=== PATIENT | male | born 1960 | race Caucasian/White ===

== ENCOUNTER 2016-05-15 04:04 | Inpatient (IN) | payer BC ==
[~2016-05-15] VITALS: Ht 177.8 cm; Wt 129.3 kg
[~2016-05-15 04:04] MED LIST: AMLO1CAP12 PO; ASPI81TA9 PO; ATOR40TA PO; BYSTOLIC10 MG PO; CELE200C PO; CRESTOR40 MG PO; DEXL60CA PO; MONT10TA6 PO; NAPR500T3 PO; RIVA10TA PO; SERT50TA PO; TEST30SO TD; WARF5TAB7 PO; WARF7.5T6 PO
[2016-05-15] MEDS ORDERED: ASPIRIN 81 MG TAB.CHEW PO ONE (04:30)
[2016-05-15 05:07] LABS: CALCIUM 8.9 mg/dL (8.5-10.1); CREATININE 1.1 mg/dL (0.7-1.3); POTASSIUM 3.7 mmol/L (3.5-5.1)
[2016-05-15 05:13] LABS: ALBUMIN 3.5 g/dL (3.4-5.0); DIRECT BILIRUBIN 0.1 mg/dL (0.0-0.2); TOTAL BILIRUBIN 0.3 mg/dL (0.2-1.0); TOTAL PROTEIN 6.4 g/dL (6.4-8.2)
[2016-05-15 05:27] LABS: BASO # 0.1 x10^3/uL (0.0-0.2); BASO % 1 % (0-3); EOS % 1 % (0-3); HEMATOCRIT 42.6 % (39.0-53.0); HEMOGLOBIN 14.1 g/dL (13.0-17.5); LYMPH # 3.2 x10^3/uL (1.0-4.8); LYMPH % 26 % (24-48); MEAN CORPUSCULAR HEMOGLOBIN 30 pg (25-35); MEAN CORPUSCULAR HGB CONC 33 g/dL (31-37); MEAN CORPUSCULAR VOLUME 91 fL (79-100); MONO % 8 % (0-9); NEUT % 65 % (31-73); PLATELET COUNT 264 x10^3/uL (140-400); RED BLOOD COUNT 4.69 x10^6/uL (4.30-5.70); WHITE BLOOD COUNT 12.6 x10^3/uL (4.0-11.0)
--- NOTE | 2016-05-15 05:43 | PHYS DOC ---
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 He describes chest pain as a tightness that radiates to his neck. It is moderate, intermittent and alleviating factors. He also complains of general abdominal pain in the epigastrium right upper quadrant and right lower quadrant. He has a history of a cholecystectomy in the past. He also has had nausea with a few episodes of vomiting. ROS is negative for fevers chills. Positive for chest pain abdominal pain nausea and vomiting. All other review of systems is negative unless otherwise noted in history of present illness. Review of Systems Review of Systems See above. Current Medications Current Medications Current Medications Medications (Trade) Dose Ordered Sig/Nicolas Start Time Stop Time Status Last Admin Dose Admin Aspirin (Children'S Aspirin) 324 mg 1X ONCE 05/15/16 04:30 05/15/16 04:31 DC 05/15/16 04:24 324 MG Allergies Allergies Allergies Coded Allergies Type Severity Reaction Last Updated Verified No Known Drug Allergies 06/14/13 No Physical Exam Physical Exam Constitutional: Well developed, well nourished, no acute distress, non-toxic appearance. HENT: Normocephalic, atraumatic, bilateral external ears normal, oropharynx moist, no oral exudates, nose normal. [] Eyes: PERRLA, EOMI, conjunctiva normal, no discharge. [] Neck: Normal range of motion, no tenderness, supple, no stridor. Cardiovascular:Heart rate regular rhythm, no murmur [] Lungs & Thorax: Bilateral breath sounds clear to auscultation Abdomen: Soft nontender palpation. No rebound tenderness or guarding present. Skin: Warm, dry, no erythema, no rash. [] Back: No tenderness, no CVA tenderness. [] Extremities: No tenderness, no cyanosis, no clubbing, ROM intact, no edema. Neurologic: Alert and oriented X 3, normal motor function, normal sensory function, no focal deficits noted. Psychologic: Affect normal, judgement normal, mood normal. [] Current Patient Data Vital Signs Vital Signs Date Time Temp Pulse Resp B/P Pulse Ox O2 Delivery O2 Flow Rate FiO2 05/15/16 04:04 98.3 51 22 169/91 97 Room Air 98.3 Lab Values Laboratory Tests Test 05/15/16 04:25 Sodium Level 143mmol/L (136-145) Potassium Level 3.7mmol/L (3.5-5.1) Chloride Level 108mmol/L (98-107) H Carbon Dioxide Level 23mmol/L (21-32) Anion Gap 12 (6-14) Blood Urea Nitrogen 13mg/dL (8-26) Creatinine 1.1mg/dL (0.7-1.3) Estimated GFR (Cockcroft-Gault) 70.0 Glucose Level 105mg/dL (70-99) H Calcium Level 8.9mg/dL (8.5-10.1) Total Bilirubin 0.3mg/dL (0.2-1.0) Direct Bilirubin 0.1mg/dL (0.0-0.2) Aspartate Amino Transferase (AST) 15U/L (15-37) Alanine Aminotransferase (ALT) 30U/L (16-63) Alkaline Phosphatase 80U/L (46-116) Troponin I Quantitative < 0.017ng/mL (0.000-0.055) KY-Gwc-D-Type Natriuretic Peptide 318pg/mL (0-124) H Total Protein 6.4g/dL (6.4-8.2) Albumin 3.5g/dL (3.4-5.0) Lipase 243U/L (73-393) Laboratory Tests 05/15/16 04:25 EKG EKG [] EKG shows sinus rhythm with a regular rate. [place] is leftward. Intervals within normal limits. ST segments congruent. Radiology/Procedures Radiology/Procedures [] Course & Med Decision Making Course & Med Decision Making Pertinent Labs and Imaging studies reviewed. (See chart for details) [] 55-year-old male presenting to the emergency department today with chest pain abdominal pain nausea and vomiting. On evaluation patient was afebrile with mildly bradycardic pulse. Otherwise mildly hypertensive. Physical exam was otherwise unremarkable. EKG unremarkable. Chest x-ray showed no obvious infiltrate or pneumothorax. Blood work obtained aspirin given. Chemistry panel negative troponin and otherwise largely unremarkable. Lipase within normal limits. CT angiography of the chest ordered. The patient was then admitted for further evaluation workup and care including chest pain rule out. Dragon Disclaimer Dragon Disclaimer This electronic medical record was generated, in whole or in part, using a voice recognition dictation system. Departure Departure Impression: Primary Impression: Chest pain Additional Impressions: Abdominal pain Nausea & vomiting Disposition: 01 HOME, SELF-CARE Admitting Physician: Baltazar Chacko Condition: STABLE Referrals: YOHAN KIMBLE MD (PCP) Problem Qualifiers VJ YE MD May 15, 2016 05:43
[2016-05-15] MEDS ORDERED: CONTRAST GIVEN MC PRN ×2 (05:45→12:00)
[2016-05-15] MEDS ORDERED: HYDROMORPHONE 2 MG/ML VIAL. IV PRN (05:45)
[2016-05-15] MEDS ORDERED: IOHEXOL 300 MG/ML 75 ML VIAL IV ONE (05:45)
--- NOTE | 2016-05-15 06:18 | EKG ---
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
--- NOTE | 2016-05-15 06:25 | RAD ---
INDICATION: Chest pain. COMPARISON: May 2013 TECHNIQUE: Axial CT images obtained through the chest. Intravenous contrast was utilized. 3D images processed per protocol. One or more of the following individualized dose reduction techniques were utilized for this examination: 1. Automated exposure control; 2. Adjustment of the mA and/or kV according to patient size; 3. Use of iterative reconstruction technique. FINDINGS: No focal airspace consolidation. No pneumothorax. No pulmonary edema. Thoracic aorta not grossly aneurysmal. There is very little contrast within the thoracic aorta therefore lumen is not well evaluated. Left thyroid nodule No gross osseous destructive lesion. No central pulmonary embolus. Postoperative changes to the stomach. Distention of the distal esophagus versus small hiatal hernia. IMPRESSION: No focal airspace consolidation, pneumothorax or pulmonary edema. No central pulmonary embolus. Limited peripherally secondary to motion which obscures peripheral pulmonary arteries. Within the right mid lung anteriorly there is a possible region of low-attenuation within 1 of the peripheral pulmonary arteries in this patient with a history of embolus within the region. There is a large amount of motion therefore it is possible that this is secondary to motion artifact but a small amount of residual thrombus within the region is possible given this finding. The patient's previously identified more proximal emboli have resolved when compared to prior. Left thyroid nodule. Ultrasound could better evaluate. Electronically signed by: Melo Roper (May 15, 2016 06:24:13)
[2016-05-15] MEDS ORDERED: ONDANSETRON PF 4 MG/2 ML VIAL. IV PRN (06:45)
[2016-05-15] MEDS ORDERED: MORPHINE SULFATE 2 MG/ML DISP.SYRIN. IV PRN ×2 (06:45→10:45)
[2016-05-15 07:00] VITALS: BP 115/71
--- NOTE | 2016-05-15 07:07 | RAD ---
Portable chest, 05/15/2016: History: Chest pain, shortness of breath Comparison is made to a study from 06/07/2013. The heart size and pulmonary vascularity are normal. No pulmonary infiltrate is seen. A small granuloma is present left base. No pleural fluid is evident. IMPRESSION: No acute cardiopulmonary abnormality is detected.
--- NOTE | 2016-05-15 10:08 | PDOC2 ---
CARDIAC CONSULT DATE OF CONSULT Date of Consult DATE: 05/15/16 TIME: 09:57 REASON FOR CONSULT Reason for Consult: Chest pain REFERRING PHYSICIAN Referring Physician: Juan SOURCE Source: Chart review, Patient HISTORY OF PRESENT ILLNESS HISTORY OF PRESENT ILLNESS This is a pleasant 55 yo male admitted for complains of chest pain and abdominal pain. Friday morning he vomited with gastric contents. He then vomited that night as well x2 and again yesterday 3x. He started having dull achy abdominal pain which started in the epigastric region then localized to right side of his abdomen with sometimes shooting pain towards his right groin. Eventually yesterday he started having mid sternal pressure which radiated to his anterior and posterior neck. He has been nauseated and could not keep any food down. Reports no SOA. Denies any BURGOS, utilizing stairs in his home when going to his basement without difficulty. Denies any diarrhea, palpitations. He has hx of PE in 2013 which he is being followed closely by pulmonary as an outpt and currently on xarelto at home. Also reports hx of esophageal ulcers remotely and verified no further ulcers per his EGD last yr prior to his gastric sleeve placement which he has lost 60 pounds already. He has been compliant with his regimen of small meals. He also had LHC 2 yrs ago which showed no CAD. He also has stopped taking NSAIDs 01/2016 prior to his gastric sleeve operation. 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 Smoke: No ALCOHOL: none Drugs: None Lives: with Family CURRENT MEDICATIONS CURRENT MEDICATIONS Current Medications Medications (Trade) Dose Ordered Sig/Nicolas Route PRN Reason Start Time Stop Time Status Last Admin Dose Admin Aspirin (Children'S Aspirin) 324 mg 1X ONCE PO 05/15/16 04:30 05/15/16 04:31 DC 05/15/16 04:24 Iohexol (Omnipaque 300 Mg/ml) 75 ml 1X ONCE IV 05/15/16 05:45 05/15/16 05:46 DC 05/15/16 05:44 Hydromorphone HCl (Dilaudid) 0.5 mg PRN Q1HR PRN IV SEVERE PAIN 05/15/16 05:45 05/15/16 06:00 ALLERGIES ALLERGIES: Coded Allergies: No Known Drug Allergies (Unverified , 06/14/13) ROS Review of System 14 point ROS evaluated with pertinent positives noted per HPI PHYSICAL EXAM General: Alert, Oriented X3, Cooperative, No acute distress HEENT: Atraumatic, Mucous membr. moist/pink Lungs: Clear to auscultation, Normal air movement Heart: Regular rate (no tele, RRR), Normal S1, Normal S2, No murmurs Abdomen: Soft, Other (right side abdominal pain with deep palpation) Extremities: No cyanosis, No edema Skin: No breakdown, No significant lesion Neuro: Normal speech, Sensation intact Psych/Mental Status: Mental status NL, Mood NL MUSCULOSKELETAL: Osteoarthritic changes both hands VITALS VITALS Vital Signs Date Time Temp Pulse Resp B/P Pulse Ox O2 Delivery O2 Flow Rate FiO2 05/15/16 07:00 98.8 48 18 115/71 96 Room Air 98.8 LABS Lab: Laboratory Tests Test 05/15/16 04:25 05/15/16 05:15 Sodium Level 143mmol/L (136-145) Potassium Level 3.7mmol/L (3.5-5.1) Chloride Level 108mmol/L (98-107) Carbon Dioxide Level 23mmol/L (21-32) Anion Gap 12 (6-14) Blood Urea Nitrogen 13mg/dL (8-26) Creatinine 1.1mg/dL (0.7-1.3) Estimated GFR (Cockcroft-Gault) 70.0 Glucose Level 105mg/dL (70-99) Calcium Level 8.9mg/dL (8.5-10.1) Total Bilirubin 0.3mg/dL (0.2-1.0) Direct Bilirubin 0.1mg/dL (0.0-0.2) Aspartate Amino Transf (AST/SGOT) 15U/L (15-37) Alanine Aminotransferase (ALT/SGPT) 30U/L (16-63) Alkaline Phosphatase 80U/L (46-116) Troponin I Quantitative < 0.017ng/mL (0.000-0.055) TS-Uep-A-Type Natriuretic Peptide 318pg/mL (0-124) Total Protein 6.4g/dL (6.4-8.2) Albumin 3.5g/dL (3.4-5.0) Lipase 243U/L (73-393) White Blood Count 12.6x10^3/uL (4.0-11.0) Red Blood Count 4.69x10^6/uL (4.30-5.70) Hemoglobin 14.1g/dL (13.0-17.5) Hematocrit 42.6% (39.0-53.0) Mean Corpuscular Volume 91fL (79-100) Mean Corpuscular Hemoglobin 30pg (25-35) Mean Corpuscular Hemoglobin Concent 33g/dL (31-37) Red Cell Distribution Width 15.0% (11.5-14.5) Platelet Count 264x10^3/uL (140-400) Neutrophils (%) (Auto) 65% (31-73) Lymphocytes (%) (Auto) 26% (24-48) Monocytes (%) (Auto) 8% (0-9) Eosinophils (%) (Auto) 1% (0-3) Basophils (%) (Auto) 1% (0-3) Neutrophils # (Auto) 8.2x10^3uL (1.8-7.7) Lymphocytes # (Auto) 3.2x10^3/uL (1.0-4.8) Monocytes # (Auto) 1.0x10^3/uL (0.0-1.1) Eosinophils # (Auto) 0.1x10^3/uL (0.0-0.7) Basophils # (Auto) 0.1x10^3/uL (0.0-0.2) ECHOCARDIOGRAM ECHOCARDIOGRAM <Conclusion> The left ventricle is normal size. There is mild concentric left ventricular hypertrophy. The left ventricular systolic function is normal.. The Ejection Fraction is 60-65%. The diastolic function is normal. There is no pericardial effusion. There is no mitral stenosis. There is no mitral valve prolapse or regurgitation. There is no aortic stenosis or regurgitation. The right ventricle and the right atrium are mildly enlarged. No tricuspid regurgitation is noted to be able to estimate the right ventricular systolic pressure. There is a mild pulmonic regurgitation. DATE: 08/27/14 1618 HEART CATH HEART CATH Conclusion Normal left main coronary artery. No significant intraluminal coronary artery disease appreciated. Normal left ventricular systolic function with visually estimated ejection fraction of 65%. DATE: 06/08/13 1633 ASSESSMENT/PLAN ASSESSMENT/PLAN 1. Atypical chest pain: initial troponin normal, trending. EKG SB at 50 without acute changes. Doubt ACS. Suspect likely reflux esophagitis from persistent vomiting. CTA noted with possible residual thrombus, will obtain TTE and note right side gradients otherwise no further cardiac workup. 05/2013 [facility] with no CAD. 2. Abdominal pain with recent gastric sleeve placement on 01/2016: No hematemesis. Recommend CT abdomen and pelvis. Defer to PCP 3. Hx of unprovoked bilateral PE: Hypercoagulable study not available but he did tell me that it was normal. Will try to obtain this record. CTA with residual thrombus? Pt verbalized [id number] mg of xarelto daily. Suppose to have outpt follow up with pulmonary 04/[address] Lopez was not available at that time. Pulmonary consult per PCP. 4. Remote hx of esophageal ulcers 5. HTN: on every other day bystolic and will discontinue in relation to bradycardia. Continue with home losartan. 6. HLP: has been off statin since 01/2016 as this was recommended to him. Lost 60 pounds since gastric sleeve. Lipid panel and will restart if levels are not on goal. Problems: NITIN FOSTER APRN May 15, 2016 10:08
[2016-05-15 10:36] VITALS: BP 135/74
[2016-05-15] MEDS ORDERED: MORPHINE SULFATE 4 MG/ML DISP.SYRIN. IV PRN (10:45)
[2016-05-15] MEDS ORDERED: ACETAMINOPHEN 325 MG TABLET. PO PRN (10:45)
[2016-05-15] MEDS ORDERED: hydrALAZINE 20 MG/ML VIAL. IVP PRN (10:45)
[2016-05-15] MEDS: CELECOXIB 200 MG CAPSULE PO SCH (11:00)
[2016-05-15] MEDS: ASPIRIN ENTERIC COATED 81 MG TABLET.DR. PO SCH (11:00)
[2016-05-15] MEDS ORDERED: METOPROLOL TART IMMED RELEASE 50 MG TABLET PO SCH (11:00)
[2016-05-15] MEDS: IV NORMAL SALINE 1000ML BAG 1,000 ML IV SCH (11:03)
[2016-05-15 11:18] LABS: CHOLESTEROL/HDL RATIO 4.5
[2016-05-15] MEDS ORDERED: IOHEXOL 240 MG/ML 50ML VIAL. PO ONE (12:00)
--- NOTE | 2016-05-15 12:00 | PDOC1 ---
History and Physical Date of Admission Date of Admission 05/15/16 Identification/Chief Complaint Chief Complaint N/V , abd pain, chest pain Problems: Source Source: Chart review, Patient History of Present Illness History of Present Illness HPI HPI 55-year-old male presenting to the emergency department today for chest pain. He woke up with chest pain, substernal, pressure, radiating to bl jaws, for 1min , happened 2 times. He also has had N/V and right flank pain for 1 week. no diarrhea, or constipation. no fever, chills. He has a history of a cholecystectomy in the past and gastric sleeve last year for losing weight had PE before , but on xarelto for a long time, sees dr. Lopez. CTA showed possible PE HAD EGD, Colonscopy before, was told had gastric ulcer Past Medical History Cardiovascular: HTN, Hyperlipidemia Pulmonary: Pulmonary embolus CENTRAL NERVOUS SYSTEM: Other (No pertinent history) GI: GERD Heme/Onc: No pertinent hx Hepatobiliary: Cholelithiasis Psych: No pertinent hx Rheumatologic: No pertinent hx Infectious disease: No pertinent hx ENT: No pertinent hx Renal/: No pertinent hx Endocrine: Other (Left thyroid nodule) Dermatology: No pertinent hx Past Surgical History Past Surgical History: Cholecystectomy Family History Family History: Coronary Artery Disease (father) Social History Smoke: No ALCOHOL: none Drugs: None Current Problem List Problem List Problems Medical Problems: (1) Abdominal pain Status: Acute (2) Chest pain Status: Acute (3) Nausea & vomiting Status: Acute Current Medications Current Medications Current Medications Medications (Trade) Dose Ordered Sig/Nicolas Start Time Stop Time Status Last Admin Dose Admin Acetaminophen (Tylenol) 650 mg PRN Q6HRS PRN 05/15/16 10:45 Acetaminophen/ Hydrocodone Bitart (Lortab 5/325) 1 tab PRN Q4HRS PRN 05/15/16 10:45 Aspirin (Children'S Aspirin) 324 mg 1X ONCE 05/15/16 04:30 05/15/16 04:31 DC 05/15/16 04:24 324 MG Aspirin (Ecotrin) 81 mg DAILY08 05/15/16 11:00 Atorvastatin Calcium (Lipitor) 80 mg QHS 05/15/16 21:00 Celecoxib (Celebrex) 200 mg DAILY 05/15/16 11:00 Hydralazine HCl 10 mg 10 mg PRN Q4HRS PRN 05/15/16 10:45 Hydromorphone HCl (Dilaudid) 0.5 mg PRN Q1HR PRN 05/15/16 05:45 05/15/16 06:00 0.5 MG Info (Do NOT chart on this entry -- for MONITORING) 1 each PRN DAILY PRN 05/15/16 05:45 05/17/16 05:44 Iohexol (Omnipaque 240 Mg/ml) 30 ml 1X ONCE 05/15/16 12:00 05/15/16 12:01 UNV Iohexol (Omnipaque 300 Mg/ml) 75 ml 1X ONCE 05/15/16 05:45 05/15/16 05:46 DC 05/15/16 05:44 75 ML Losartan Potassium (Cozaar) 25 mg DAILY 05/15/16 11:30 Metoprolol Tartrate (Lopressor) 50 mg BID 05/15/16 11:00 05/15/16 11:00 DC Montelukast Sodium (Singulair) 10 mg HS 05/15/16 21:00 Morphine Sulfate 4 mg PRN Q2HR PRN 05/15/16 10:45 Non-Formulary Medication 1 each DAILY 05/16/16 09:00 05/16/16 09:00 DC Ondansetron HCl (Zofran) 4 mg PRN Q6HRS PRN 05/15/16 10:45 Pantoprazole Sodium (Protonix) 40 mg DAILYAC 05/15/16 11:30 Rivaroxaban (Xarelto) 20 mg DAILY 05/16/16 09:00 UNV Sertraline HCl (Zoloft) 50 mg DAILY 05/15/16 11:30 Sodium Chloride (Iv Sodium Chloride 0.9% 1000ml Bag) 1,000 ml @ 75 mls/hr [id number] 05/15/16 10:45 05/15/16 11:03 75 MLS/HR Allergies Allergies Allergies Coded Allergies Type Severity Reaction Last Updated Verified No Known Drug Allergies 06/14/13 No ROS Review of System CONSTITUTIONAL: No fever or chills EYES: No recent changes SKIN: No rash or itching CARDIOVASCULAR: No chest pain, syncope, palpitations, or edema RESPIRATORY: No SOB or cough GASTROINTESTINAL: No nausea, vomiting or abdominal pain NEUROLOGICAL: No headaches or weakness ENDOCRINE: No cold or heat intolerance GENITOURINARY: No urgency or frequency of urination MUSCULOSKELETAL: No back pain or joint pain LYMPHATICS: No enlarged lymph nodes PSYCHIATRIC: No anxiety or depression Physical Exam Physical Exam GEN.: No apparent distress. Alert and oriented. HEENT: Head is normocephalic, atraumatic NECK: Supple. LUNGS: Clear to auscultation. HEART: RRR, S1, S2 present. Peripheral pulses intact ABDOMEN: Soft, nontender. Positive bowel sounds. EXTREMITIES: Without any cyanosis. NEUROLOGIC: Normal speech, normal tone PSYCHIATRIC: Normal affect, normal mood. SKIN: No ulcerations Vitals Vitals Vital Signs Date Time Temp Pulse Resp B/P Pulse Ox O2 Delivery O2 Flow Rate FiO2 05/15/16 11:03 20 Room Air 05/15/16 10:36 99.1 49 135/74 97 99.1 Labs Labs Laboratory Tests Test 05/15/16 04:25 05/15/16 05:15 Sodium Level 143mmol/L (136-145) Potassium Level 3.7mmol/L (3.5-5.1) Chloride Level 108mmol/L (98-107) Carbon Dioxide Level 23mmol/L (21-32) Anion Gap 12 (6-14) Blood Urea Nitrogen 13mg/dL (8-26) Creatinine 1.1mg/dL (0.7-1.3) Estimated GFR (Cockcroft-Gault) 70.0 Glucose Level 105mg/dL (70-99) Calcium Level 8.9mg/dL (8.5-10.1) Total Bilirubin 0.3mg/dL (0.2-1.0) Direct Bilirubin 0.1mg/dL (0.0-0.2) Aspartate Amino Transf (AST/SGOT) 15U/L (15-37) Alanine Aminotransferase (ALT/SGPT) 30U/L (16-63) Alkaline Phosphatase 80U/L (46-116) Troponin I Quantitative < 0.017ng/mL (0.000-0.055) PY-Xna-U-Type Natriuretic Peptide 318pg/mL (0-124) Total Protein 6.4g/dL (6.4-8.2) Albumin 3.5g/dL (3.4-5.0) Triglycerides Level 209mg/dL (0-150) Cholesterol Level 234mg/dL (0-200) LDL Cholesterol, Calculated 140mg/dL (0-100) VLDL Cholesterol, Calculated 42mg/dL (0-40) HDL Cholesterol 52mg/dL (40-60) Cholesterol/HDL Ratio 4.5 Lipase 243U/L (73-393) White Blood Count 12.6x10^3/uL (4.0-11.0) Red Blood Count 4.69x10^6/uL (4.30-5.70) Hemoglobin 14.1g/dL (13.0-17.5) Hematocrit 42.6% (39.0-53.0) Mean Corpuscular Volume 91fL (79-100) Mean Corpuscular Hemoglobin 30pg (25-35) Mean Corpuscular Hemoglobin Concent 33g/dL (31-37) Red Cell Distribution Width 15.0% (11.5-14.5) Platelet Count 264x10^3/uL (140-400) Neutrophils (%) (Auto) 65% (31-73) Lymphocytes (%) (Auto) 26% (24-48) Monocytes (%) (Auto) 8% (0-9) Eosinophils (%) (Auto) 1% (0-3) Basophils (%) (Auto) 1% (0-3) Neutrophils # (Auto) 8.2x10^3uL (1.8-7.7) Lymphocytes # (Auto) 3.2x10^3/uL (1.0-4.8) Monocytes # (Auto) 1.0x10^3/uL (0.0-1.1) Eosinophils # (Auto) 0.1x10^3/uL (0.0-0.7) Basophils # (Auto) 0.1x10^3/uL (0.0-0.2) Laboratory Tests Test 05/15/16 04:25 05/15/16 05:15 Sodium Level 143mmol/L (136-145) Potassium Level 3.7mmol/L (3.5-5.1) Chloride Level 108mmol/L (98-107) Carbon Dioxide Level 23mmol/L (21-32) Anion Gap 12 (6-14) Blood Urea Nitrogen 13mg/dL (8-26) Creatinine 1.1mg/dL (0.7-1.3) Estimated GFR (Cockcroft-Gault) 70.0 Glucose Level 105mg/dL (70-99) Calcium Level 8.9mg/dL (8.5-10.1) Total Bilirubin 0.3mg/dL (0.2-1.0) Direct Bilirubin 0.1mg/dL (0.0-0.2) Aspartate Amino Transf (AST/SGOT) 15U/L (15-37) Alanine Aminotransferase (ALT/SGPT) 30U/L (16-63) Alkaline Phosphatase 80U/L (46-116) Troponin I Quantitative < 0.017ng/mL (0.000-0.055) FE-Zpl-A-Type Natriuretic Peptide 318pg/mL (0-124) Total Protein 6.4g/dL (6.4-8.2) Albumin 3.5g/dL (3.4-5.0) Triglycerides Level 209mg/dL (0-150) Cholesterol Level 234mg/dL (0-200) LDL Cholesterol, Calculated 140mg/dL (0-100) VLDL Cholesterol, Calculated 42mg/dL (0-40) HDL Cholesterol 52mg/dL (40-60) Cholesterol/HDL Ratio 4.5 Lipase 243U/L (73-393) White Blood Count 12.6x10^3/uL (4.0-11.0) Red Blood Count 4.69x10^6/uL (4.30-5.70) Hemoglobin 14.1g/dL (13.0-17.5) Hematocrit 42.6% (39.0-53.0) Mean Corpuscular Volume 91fL (79-100) Mean Corpuscular Hemoglobin 30pg (25-35) Mean Corpuscular Hemoglobin Concent 33g/dL (31-37) Red Cell Distribution Width 15.0% (11.5-14.5) Platelet Count 264x10^3/uL (140-400) Neutrophils (%) (Auto) 65% (31-73) Lymphocytes (%) (Auto) 26% (24-48) Monocytes (%) (Auto) 8% (0-9) Eosinophils (%) (Auto) 1% (0-3) Basophils (%) (Auto) 1% (0-3) Neutrophils # (Auto) 8.2x10^3uL (1.8-7.7) Lymphocytes # (Auto) 3.2x10^3/uL (1.0-4.8) Monocytes # (Auto) 1.0x10^3/uL (0.0-1.1) Eosinophils # (Auto) 0.1x10^3/uL (0.0-0.7) Basophils # (Auto) 0.1x10^3/uL (0.0-0.2) VTE Prophylaxis Ordered VTE Prophylaxis Devices: Yes VTE Pharmacological Prophylaxi: No Assessment/Plan Assessment/Plan 1. atypical chest pain, 2/2 anxiety or related to abd pain likely 2. right flank pain with N/V 3. htn 4. hld 5. h/o gastric ulcer, recent post gastric sleeve gastrectomy for weight loss 6. h/o PE, still on xarelto 7. ct found thyroid nodule plan: 1. gi, card consult 2. ct abd/pelvis to rule out kidney stone and gastric leaking 3. cont home meds, only on losartan for htn 4. cont xarelto for now, pulm consult 5. US for thyroid nodule check tsh 6. ivf for now gi ppx JUVENAL SMITH MD May 15, 2016 12:00
--- NOTE | 2016-05-15 12:03 | PDOC2 ---
GI CONSULT Reason For Consult: Abdominal pain HPI: HPI: 55 y/o male admitted through the ER this morning w/ chest pain and abd pain. He reports on 05/12 in the evening, he began having some abdominal pain ( periumbilical/right-sided). Considering his h/o gastric sleeve surgery (in 2015 at [facility] by Dr. Cox), he thought maybe he overate. He has had pain occasionally since surgery, but this pain did not resolve. It is constant and has migrated some to the RUQ down to the RLQ and groin region. On 05/13, he began w/ nausea and vomiting and was unable to keep anything down. He has not had issues w/ n/v since surgery until now. He also had heartburn which improved after vomiting. He has a h/o GERD which has been controlled w/ PPI ( Rx omeprazole taken every morning - he usually doesn't eat breakfast) since surgery. He recalls three previous EGDs; the first (by Dr. Griffin) revealed esophageal ulcers and he was started on Dexilant. Reportedly, a second EGD showed improvement/healing. A third EGD was performed prior to bariatric surgery which was apparently normal. This morning, he awoke w/ central chest pain that radiated to the back of his neck and into his throat which prompted ER evaluation. Labs are fairly unrevealing except for WBC 12.6, BNP 318, and elevated lipid panel. Chest CTA showed possible residual thrombus. Cardiology has seen; echocardiogram is planned. Dr. Craven has ordered CT A/P. He currently is feeling better w/o chest pain or n/v. Right-sided abdominal pain persists but is not too bothersome. He also reports having 2-3 previous colonoscopies which showed polyps, the last of which was a few years ago through [facility]. Since gastric sleeve, his stools have been looser. He has lost about 100 pounds in all, 65 of which has been since surgery. S/p cholecystectomy for gallstones. No NSAID use since gastric sleeve surgery. He is on Xarelto (no ASA) for PE. He denies diarrhea, constipation, hematemesis, hematochezia, and melena. PMH: PMH: PE, HTN, HLD, GERD, arthritis, gout, ROYAL, depression, gastric sleeve, cholecystectomy, vasectomy, ankle surgeries FH: Family History: CAD Social History: Smoke: No ALCOHOL: none Drugs: None ROS: GEN: Denies fevers, chills, sweats HEENT: Denies blurred vision, sore throat CV: +chest pain RESP: Denies shortness of air, cough GI: Per HPI : Denies hematuria, dysuria ENDO: +weight loss NEURO: Denies confusion, dizziness MSK: +neck pain SKIN: Denies jaundice, pruritus VItals: Vitals: Vital Signs Date Time Temp Pulse Resp B/P Pulse Ox O2 Delivery O2 Flow Rate FiO2 05/15/16 11:03 20 Room Air 05/15/16 10:36 99.1 49 135/74 97 99.1 Labs: Labs: Laboratory Tests Test 05/15/16 04:25 05/15/16 05:15 Sodium Level 143mmol/L (136-145) Potassium Level 3.7mmol/L (3.5-5.1) Chloride Level 108mmol/L (98-107) Carbon Dioxide Level 23mmol/L (21-32) Anion Gap 12 (6-14) Blood Urea Nitrogen 13mg/dL (8-26) Creatinine 1.1mg/dL (0.7-1.3) Estimated GFR (Cockcroft-Gault) 70.0 Glucose Level 105mg/dL (70-99) Calcium Level 8.9mg/dL (8.5-10.1) Total Bilirubin 0.3mg/dL (0.2-1.0) Direct Bilirubin 0.1mg/dL (0.0-0.2) Aspartate Amino Transf (AST/SGOT) 15U/L (15-37) Alanine Aminotransferase (ALT/SGPT) 30U/L (16-63) Alkaline Phosphatase 80U/L (46-116) Troponin I Quantitative < 0.017ng/mL (0.000-0.055) QC-Wvy-F-Type Natriuretic Peptide 318pg/mL (0-124) Total Protein 6.4g/dL (6.4-8.2) Albumin 3.5g/dL (3.4-5.0) Triglycerides Level 209mg/dL (0-150) Cholesterol Level 234mg/dL (0-200) LDL Cholesterol, Calculated 140mg/dL (0-100) VLDL Cholesterol, Calculated 42mg/dL (0-40) HDL Cholesterol 52mg/dL (40-60) Cholesterol/HDL Ratio 4.5 Lipase 243U/L (73-393) White Blood Count 12.6x10^3/uL (4.0-11.0) Red Blood Count 4.69x10^6/uL (4.30-5.70) Hemoglobin 14.1g/dL (13.0-17.5) Hematocrit 42.6% (39.0-53.0) Mean Corpuscular Volume 91fL (79-100) Mean Corpuscular Hemoglobin 30pg (25-35) Mean Corpuscular Hemoglobin Concent 33g/dL (31-37) Red Cell Distribution Width 15.0% (11.5-14.5) Platelet Count 264x10^3/uL (140-400) Neutrophils (%) (Auto) 65% (31-73) Lymphocytes (%) (Auto) 26% (24-48) Monocytes (%) (Auto) 8% (0-9) Eosinophils (%) (Auto) 1% (0-3) Basophils (%) (Auto) 1% (0-3) Neutrophils # (Auto) 8.2x10^3uL (1.8-7.7) Lymphocytes # (Auto) 3.2x10^3/uL (1.0-4.8) Monocytes # (Auto) 1.0x10^3/uL (0.0-1.1) Eosinophils # (Auto) 0.1x10^3/uL (0.0-0.7) Basophils # (Auto) 0.1x10^3/uL (0.0-0.2) Allergies: Coded Allergies: No Known Drug Allergies (Unverified , 06/14/13) Medications: Current Medications Medications (Trade) Dose Ordered Sig/Nicolas Route PRN Reason Start Time Stop Time Status Last Admin Dose Admin Aspirin (Children'S Aspirin) 324 mg 1X ONCE PO 05/15/16 04:30 05/15/16 04:31 DC 05/15/16 04:24 Iohexol (Omnipaque 300 Mg/ml) 75 ml 1X ONCE IV 05/15/16 05:45 05/15/16 05:46 DC 05/15/16 05:44 Hydromorphone HCl (Dilaudid) 0.5 mg PRN Q1HR PRN IV SEVERE PAIN 05/15/16 05:45 05/15/16 06:00 Morphine Sulfate 2 mg 2 mg PRN Q2HR PRN IV PAIN 05/15/16 06:45 05/16/16 06:44 05/15/16 11:03 Sodium Chloride (Iv Sodium Chloride 0.9% 1000ml Bag) 1,000 ml @ 75 mls/hr [id number] IV 05/15/16 10:45 05/15/16 11:03 Imaging: Imaging: CXR 05/15/16 IMPRESSION: No acute cardiopulmonary abnormality is detected. CTA Chest 05/15/16 IMPRESSION: No focal airspace consolidation, pneumothorax or pulmonary edema. No central pulmonary embolus. Limited peripherally secondary to motion which obscures peripheral pulmonary arteries. Within the right mid lung anteriorly there is a possible region of low-attenuation within 1 of the peripheral pulmonary arteries in this patient with a history of embolus within the region. There is a large amount of motion therefore it is possible that this is secondary to motion artifact but a small amount of residual thrombus within the region is possible given this finding. The patient's previously identified more proximal emboli have resolved when compared to prior. Left thyroid nodule. Ultrasound could better evaluate. PE: GEN: NAD, cooperative HEENT: Atraumatic, PERRL LUNGS: CTAB anteriorly HEART: RRR ABD: NABS, S/ND, overweight, right lateral tenderness (vague - above hip, not RLQ) EXTREMITY: No edema SKIN: No rashes, no jaundice NEURO/PSYCH: A & O 3 A/P: A/P: Abdominal pain w/ n/v -right-sided (periumbilical to RUQ toward RLQ - mostly laterally) -CT A/P ordered Chest pain - improved -this morning upon waking w/ neck and throat pain -echocardiogram ordered Heartburn -previously controlled w/ omeprazole Q a.m. w/ previous EGDs (one apparently w/ significant reflux) -bothersome since 05/13 w/ n/v, abd pain -no NSAIDs S/p gastric sleeve -at [facility] 01/2016 w/ 65 lb weight loss since S/p cholecystectomy CRC screen, h/o colon polyps -reports last colonoscopy a couple years PE on Xarelto -chest CTA w/ possible residual thrombus -- Will review w/ Dr. Wilson. Await CT A/P, continue PPI. JENNIFER WHITE May 15, 2016 12:03
--- NOTE | 2016-05-15 14:06 | RAD ---
Exam performed: CT abdomen pelvis without contrast. History: Abdominal pain, stone protocol. Date of service: 05/15/16. Comparison: CT abdomen pelvis from 09/15/13. Technique: Contiguous helical acquisitions are obtained through the abdomen and pelvis without IV contrast. Sagittal and coronal reformatted images are obtained and reviewed. Findings: The study was ordered as a stone protocol study, however patient has received IV contrast for a CT angiogram chest earlier this morning with excretion of contrast through bilateral collecting systems. The lung bases are essentially clear. Minimal left basilar atelectasis seen. The heart size is normal. Postoperative changes are seen at the gastroesophageal junction and stomach consistent with the previous gastric sleeve procedure. The liver, spleen and pancreas are normal. Cholecystectomy. Both adrenal glands and bilateral kidneys are normal in size. Bilateral collecting systems appear grossly normal. Visualized opacified portions of both ureters appear normal in caliber. Small and large bowel loops appear nondilated. Visualized portion of the appendix appears normal. No inflammatory changes in the right lower quadrant. The urinary bladder is distended with contrast. There is scattered stool in the rectosigmoid region. No free or focal fluid collections are identified. Interrogation of bone windows demonstrates spondylotic changes. Impression: 1. No acute intra-abdominal or pelvic process detected. PQRS Compliance Statement: One or more of the following individualized dose reduction techniques were utilized for this examination: 1. Automated exposure control 2. Adjustment of the mA and/or kV according to patient size 3. Use of iterative reconstruction technique
--- NOTE | 2016-05-15 14:18 | RAD ---
Exam performed: Thyroid ultrasound. Indication: Follow-up thyroid nodules.. Date of Service: 05/15/16. Comparison: 08/26/14. Technique: Real-time grayscale imaging of the thyroid gland is performed and images are obtained. Findings: The thyroid gland is homogeneous in echotexture. The right lobe measures 3.9 x 1.1 x 1.7 cm whereas the left lobe measures 5.5 x 1.3 x 2.6 cm. The there is a hypoechoic complex solid and cystic nodule measuring 4.1 x 2.7 x 2.3 cm in the the mid to inferior pole of the left lobe. This appears slightly larger than on the previous study. Note is made that this has been previously evaluated by fine-needle aspiration. Impression: 1. Slight interval increase in the size of left thyroid nodule.
--- NOTE | 2016-05-15 15:08 | CARD ---
APPROVED REPORT EXAM: Two-dimensional and M-mode echocardiogram with Doppler and color Doppler. Other Information Quality : GoodHR: 51bpm Rhythm : NSR INDICATION Chest Pain 2D DIMENSIONS RVDd4.0 (2.9-3.5cm)Left Atrium(2D)4.6 (1.6-4.0cm) IVSd1.3 (0.7-1.1cm)Aortic Root(2D)3.4 (2.0-3.7cm) LVDd4.8 (3.9-5.9cm)LVOT Diameter2.8 (1.8-2.4cm) PWd1.2 (0.7-1.1cm)LVDs3.3 (2.5-4.0cm) FS (%) 31.6 %SV65.5 ml LVEF(%)59.5 (>50%) Aortic Valve AoV Peak Luis.153.4cm/sAoV VTI33.5cm AO Peak GR.9.4mmHgLVOT Peak Luis.142.8cm/s LVOT VTI 36.20cmAO Mean GR.5mmHg ANIYA (VMAX)3.88yu3AFW (VTI)2.65cm2 Mitral Valve MV E Uifizwne60.0cm/sMV DECEL [id number] MV A Jlemqpig21.4cm/sMV E Mean Gr.1mmHg MV CVS24caE/A Ratio2.0 MV A Ybajfols78laMWA (PHT)4.87cm2 TDI E/Lateral E'5.7E/Medial E'8.4 Pulmonary Valve PV Peak Dablfyov73.9cm/sPV Peak Grad.3mmHg RVOT VTI15.0cm Tricuspid Valve TR P. Icqqzybe467vn/sRAP [id number] TR Peak Gr.87xlSwRKZC70jqBm Pulmonary Vein S1 Tntygjsr34.9cm/sD2 Srchmdbm08.5cm/s LEFT VENTRICLE The left ventricle is normal size. There is borderline to mild concentric left ventricular hypertroph y. Left ventricle systolic function is normal. The Ejection Fraction is 60-65%. There is normal LV se gmental wall motion. The left ventricular diastolic function and filling is normal for age. RIGHT VENTRICLE The right ventricle is mildly dilated. There is normal right ventricular wall thickness. The right ve ntricular systolic function is normal. ATRIA The left atrium size is normal. The right atrium is mildly dilated. The interatrial septum is intact with no evidence for an atrial septal defect or patent foramen ovale as noted on 2-D or Doppler imagi ng. AORTIC VALVE The aortic valve is normal in structure and function. The aortic valve is trileaflet. Doppler and Col or Flow revealed no significant aortic regurgitation. There is no significant aortic valvular stenosi s. MITRAL VALVE The mitral valve is normal in structure. There is no mitral valve stenosis. Doppler and Color-flow re vealed trace mitral regurgitation. TRICUSPID VALVE The tricuspid valve is normal in structure. Doppler and Color Flow revealed trace tricuspid regurgita tion. There is no tricuspid valve stenosis. PULMONIC VALVE The pulmonary valve is normal in structure. Doppler and Color Flow revealed mild pulmonic valvular re gurgitation. There is no pulmonic valvular stenosis. GREAT VESSELS The aortic root is normal in size. The ascending aorta is normal in size. Normal pulmonary venous soila w (Doppler). The IVC is normal in size and collapses >50% with inspiration. PERICARDIAL EFFUSION There is no evidence of significant pericardial effusion. Critical Notification Critical Value: No <Conclusion> The left ventricle is normal size. Left ventricle systolic function is normal. The Ejection Fraction is 60-65%. There is borderline to mild concentric left ventricular hypertrophy. There is no significant aortic valvular stenosis. Doppler and Color Flow revealed no significant aortic regurgitation. Doppler and Color-flow revealed trace mitral regurgitation. Doppler and Color Flow revealed trace tricuspid regurgitation. There is no evidence of significant pericardial effusion.
[2016-05-15] MEDS: PANTOPRAZOLE 40 MG TABLET. PO SCH (15:58)
[2016-05-15] MEDS: RIVAROXABAN 10 MG TABLET. PO SCH (15:59)
[2016-05-15] MEDS: SERTRALINE 50 MG TABLET. PO SCH (15:59)
[2016-05-15] MEDS: LOSARTAN POTASSIUM 25 MG TABLET. PO SCH (16:12)
[2016-05-15] MEDS ORDERED: ANTI-COAG MONITOR BY PHARMACY. MC PRN (17:15)
[2016-05-15 19:00] VITALS: BP 125/66
[2016-05-15] MEDS: MONTELUKAST SODIUM 10 MG TABLET. PO SCH (20:21)
[2016-05-15] MEDS: ATORVASTATIN CALCIUM 40 MG TABLET. PO SCH (20:21)
[2016-05-15] MEDS: ONDANSETRON PF 4 MG/2 ML VIAL. IV PRN (20:21)
[2016-05-15] MEDS: HYDROCODONE/APAP 5/325MG TABLET. PO PRN (20:23)
[2016-05-15 23:00] VITALS: BP 123/70
[2016-05-16] MEDS: IV NORMAL SALINE 1000ML BAG 1,000 ML IV SCH ×2 (00:16→13:34)
[2016-05-16] MEDS: HYDROCODONE/APAP 5/325MG TABLET. PO PRN ×4 (02:07→20:09)
[2016-05-16 03:00] VITALS: BP 131/80
[2016-05-16 03:54] LABS: BASO # 0.1 x10^3/uL (0.0-0.2); BASO % 1 % (0-3); EOS % 2 % (0-3); HEMOGLOBIN 13.9 g/dL (13.0-17.5); LYMPH # 3.8 x10^3/uL (1.0-4.8); LYMPH % 34 % (24-48); MEAN CORPUSCULAR HEMOGLOBIN 30 pg (25-35); MEAN CORPUSCULAR HGB CONC 33 g/dL (31-37); MEAN CORPUSCULAR VOLUME 92 fL (79-100); MONO % 8 % (0-9); NEUT % 56 % (31-73); PLATELET COUNT 228 x10^3/uL (140-400); RED BLOOD COUNT 4.58 x10^6/uL (4.30-5.70); WHITE BLOOD COUNT 11.1 x10^3/uL (4.0-11.0)
[2016-05-16 04:05] LABS: CALCIUM 8.7 mg/dL (8.5-10.1); GFR 78.2; POTASSIUM 3.7 mmol/L (3.5-5.1)
[2016-05-16 04:20] LABS: FREE T4 0.9 ng/dL (0.76-1.46)
[2016-05-16 07:15] VITALS: BP 139/75
[2016-05-16] MEDS: SERTRALINE 50 MG TABLET. PO SCH (08:07)
[2016-05-16] MEDS: ASPIRIN ENTERIC COATED 81 MG TABLET.DR. PO SCH (08:07)
[2016-05-16] MEDS: RIVAROXABAN 10 MG TABLET. PO SCH (08:07)
[2016-05-16] MEDS: CELECOXIB 200 MG CAPSULE PO SCH (08:07)
[2016-05-16] MEDS: PANTOPRAZOLE 40 MG TABLET. PO SCH (08:07)
[2016-05-16] MEDS: LOSARTAN POTASSIUM 25 MG TABLET. PO SCH (08:09)
[2016-05-16] MEDS: ONDANSETRON PF 4 MG/2 ML VIAL. IV PRN ×2 (08:37→14:44)
[2016-05-16] MEDS ORDERED: [UNRECOGNIZED DRUG - OTHER] PO SCH (09:00)
[2016-05-16] MEDS ORDERED: BENAZEPRIL PO SCH (09:00)
[2016-05-16] MEDS ORDERED: RIVAROXABAN 10 MG TABLET. PO SCH (09:00)
[2016-05-16] MEDS ORDERED: AMLODIPINE BESYLATE PO SCH (09:00)
[2016-05-16 10:17] VITALS: BP 124/81
--- NOTE | 2016-05-16 11:56 | PDOC ---
Subjective: Subjective: On full liquids. Increased nausea and right-sided pain after. Reflux after chicken soup last night. No vomiting. Doesn't want to advance diet. Objective: Vital Signs: Vital Signs Date Time Temp Pulse Resp B/P Pulse Ox O2 Delivery O2 Flow Rate FiO2 05/16/16 10:17 97.7 49 18 124/81 95 Room Air 97.7 Labs: Laboratory Tests Test 05/15/16 12:25 05/15/16 18:20 05/16/16 03:28 Troponin I Quantitative < 0.017ng/mL < 0.017ng/mL White Blood Count 11.1x10^3/uL Red Blood Count 4.58x10^6/uL Hemoglobin 13.9g/dL Hematocrit 42.0% Mean Corpuscular Volume 92fL Mean Corpuscular Hemoglobin 30pg Mean Corpuscular Hemoglobin Concent 33g/dL Red Cell Distribution Width 15.0% Platelet Count 228x10^3/uL Neutrophils (%) (Auto) 56% Lymphocytes (%) (Auto) 34% Monocytes (%) (Auto) 8% Eosinophils (%) (Auto) 2% Basophils (%) (Auto) 1% Neutrophils # (Auto) 6.2x10^3uL Lymphocytes # (Auto) 3.8x10^3/uL Monocytes # (Auto) 0.9x10^3/uL Eosinophils # (Auto) 0.2x10^3/uL Basophils # (Auto) 0.1x10^3/uL Sodium Level 140mmol/L Potassium Level 3.7mmol/L Chloride Level 107mmol/L Carbon Dioxide Level 24mmol/L Anion Gap 9 Blood Urea Nitrogen 13mg/dL Creatinine 1.0mg/dL Estimated GFR (Cockcroft-Gault) 78.2 Glucose Level 96mg/dL Calcium Level 8.7mg/dL Thyroid Stimulating Hormone (TSH) 2.143uIU/mL Free Thyroxine 0.90ng/dL Imaging: CT A/P w/o contrast 05/15/16 Impression: 1. No acute intra-abdominal or pelvic process detected. Thyroid US 05/15/16 Impression: 1. Slight interval increase in the size of left thyroid nodule. Echocardiogram 05/15/16 <Conclusion> The left ventricle is normal size. Left ventricle systolic function is normal. The Ejection Fraction is 60-65%. There is borderline to mild concentric left ventricular hypertrophy. There is no significant aortic valvular stenosis. Doppler and Color Flow revealed no significant aortic regurgitation. Doppler and Color-flow revealed trace mitral regurgitation. Doppler and Color Flow revealed trace tricuspid regurgitation. There is no evidence of significant pericardial effusion. PE: GEN: NAD LUNGS: CTAB anteriorly HEART: RRR ABD: BS+, vague right periumbilical tenderness today toward iliac NEURO/PSYCH: A & O 3 A/P: Abdominal pain w/ n/v -right-sided, ongoing nausea - both worse after eating -h/o gastric sleeve, cholecystectomy Reflux -previously controlled w/ omeprazole Q a.m. w/ previous EGDs, worse lately -on pantoprazole here Chest pain - resolved -cardio has seen, echo as above Thyroid nodule -per primary -- Will review w/ Dr. Wilson. Continue PPI. JENNIFER WHITE May 16, 2016 11:56
--- NOTE | 2016-05-16 12:08 | PDOC ---
PROGRESS NOTES Chief Complaint Chief Complaint RIGHT FLANK pain 1. atypical chest pain, 2/2 anxiety or related to abd pain likely 2. right flank pain with N/V 3. htn 4. hld 5. h/o gastric ulcer, recent post gastric sleeve gastrectomy for weight loss 6. h/o PE, still on xarelto 7. ct found thyroid nodule plan: 1. gi, card consulted , echo ok 2. ct abd/pelvis has ruled out kidney stone and gastric leaking 3. cont home meds, only on losartan for htn 4. cont xarelto for now, pulm consult 5. US for thyroid nodule, slightly larger than before check tsh, t4 normal 6. ivf for now gi ppx suppotive care, hope can tolerate diet better and dc soon History of Present Illness History of Present Illness no chest pain, still has nausea, no vomiting on Full liquid diet right flank pain better with pain meds Vitals Vitals Vital Signs Date Time Temp Pulse Resp B/P Pulse Ox O2 Delivery O2 Flow Rate FiO2 05/16/16 10:17 97.7 49 18 124/81 95 Room Air 97.7 Physical Exam General: Alert, Oriented X3, Cooperative, No acute distress Heart: Regular rate (no tele, RRR), Normal S1, Normal S2, No murmurs Lungs: Clear Abdomen: Soft, Other (right side abdominal mild tednerness with deep palpation) Extremities: No cyanosis, No edema Skin: No breakdown, No significant lesion Labs LABS Laboratory Tests Test 05/15/16 12:25 05/15/16 18:20 05/16/16 03:28 Troponin I Quantitative < 0.017ng/mL (0.000-0.055) < 0.017ng/mL (0.000-0.055) White Blood Count 11.1x10^3/uL (4.0-11.0) Red Blood Count 4.58x10^6/uL (4.30-5.70) Hemoglobin 13.9g/dL (13.0-17.5) Hematocrit 42.0% (39.0-53.0) Mean Corpuscular Volume 92fL (79-100) Mean Corpuscular Hemoglobin 30pg (25-35) Mean Corpuscular Hemoglobin Concent 33g/dL (31-37) Red Cell Distribution Width 15.0% (11.5-14.5) Platelet Count 228x10^3/uL (140-400) Neutrophils (%) (Auto) 56% (31-73) Lymphocytes (%) (Auto) 34% (24-48) Monocytes (%) (Auto) 8% (0-9) Eosinophils (%) (Auto) 2% (0-3) Basophils (%) (Auto) 1% (0-3) Neutrophils # (Auto) 6.2x10^3uL (1.8-7.7) Lymphocytes # (Auto) 3.8x10^3/uL (1.0-4.8) Monocytes # (Auto) 0.9x10^3/uL (0.0-1.1) Eosinophils # (Auto) 0.2x10^3/uL (0.0-0.7) Basophils # (Auto) 0.1x10^3/uL (0.0-0.2) Sodium Level 140mmol/L (136-145) Potassium Level 3.7mmol/L (3.5-5.1) Chloride Level 107mmol/L (98-107) Carbon Dioxide Level 24mmol/L (21-32) Anion Gap 9 (6-14) Blood Urea Nitrogen 13mg/dL (8-26) Creatinine 1.0mg/dL (0.7-1.3) Estimated GFR (Cockcroft-Gault) 78.2 Glucose Level 96mg/dL (70-99) Calcium Level 8.7mg/dL (8.5-10.1) Thyroid Stimulating Hormone (TSH) 2.143uIU/mL (0.358-3.74) Free Thyroxine 0.90ng/dL (0.76-1.46) Review of Systems Review of Systems no fever, chills, sob or chest pain Assessment and Plan Assessmemt and Plan Problems Medical Problems: (1) Abdominal pain Status: Acute (2) Chest pain Status: Acute (3) Nausea & vomiting Status: Acute Problems: Comment Review of Relevant I have reviewed the following items robin (where applicable) has been applied. Labs Laboratory Tests Test 05/15/16 04:25 05/15/16 05:15 05/15/16 12:25 05/15/16 18:20 Sodium Level 143mmol/L (136-145) Potassium Level 3.7mmol/L (3.5-5.1) Chloride Level 108mmol/L (98-107) Carbon Dioxide Level 23mmol/L (21-32) Anion Gap 12 (6-14) Blood Urea Nitrogen 13mg/dL (8-26) Creatinine 1.1mg/dL (0.7-1.3) Estimated GFR (Cockcroft-Gault) 70.0 Glucose Level 105mg/dL (70-99) Calcium Level 8.9mg/dL (8.5-10.1) Total Bilirubin 0.3mg/dL (0.2-1.0) Direct Bilirubin 0.1mg/dL (0.0-0.2) Aspartate Amino Transf (AST/SGOT) 15U/L (15-37) Alanine Aminotransferase (ALT/SGPT) 30U/L (16-63) Alkaline Phosphatase 80U/L (46-116) Troponin I Quantitative < 0.017ng/mL (0.000-0.055) < 0.017ng/mL (0.000-0.055) < 0.017ng/mL (0.000-0.055) OF-Smp-Y-Type Natriuretic Peptide 318pg/mL (0-124) Total Protein 6.4g/dL (6.4-8.2) Albumin 3.5g/dL (3.4-5.0) Triglycerides Level 209mg/dL (0-150) Cholesterol Level 234mg/dL (0-200) LDL Cholesterol, Calculated 140mg/dL (0-100) VLDL Cholesterol, Calculated 42mg/dL (0-40) HDL Cholesterol 52mg/dL (40-60) Cholesterol/HDL Ratio 4.5 Lipase 243U/L (73-393) White Blood Count 12.6x10^3/uL (4.0-11.0) Red Blood Count 4.69x10^6/uL (4.30-5.70) Hemoglobin 14.1g/dL (13.0-17.5) Hematocrit 42.6% (39.0-53.0) Mean Corpuscular Volume 91fL (79-100) Mean Corpuscular Hemoglobin 30pg (25-35) Mean Corpuscular Hemoglobin Concent 33g/dL (31-37) Red Cell Distribution Width 15.0% (11.5-14.5) Platelet Count 264x10^3/uL (140-400) Neutrophils (%) (Auto) 65% (31-73) Lymphocytes (%) (Auto) 26% (24-48) Monocytes (%) (Auto) 8% (0-9) Eosinophils (%) (Auto) 1% (0-3) Basophils (%) (Auto) 1% (0-3) Neutrophils # (Auto) 8.2x10^3uL (1.8-7.7) Lymphocytes # (Auto) 3.2x10^3/uL (1.0-4.8) Monocytes # (Auto) 1.0x10^3/uL (0.0-1.1) Eosinophils # (Auto) 0.1x10^3/uL (0.0-0.7) Basophils # (Auto) 0.1x10^3/uL (0.0-0.2) Test 05/16/16 03:28 White Blood Count 11.1x10^3/uL (4.0-11.0) Red Blood Count 4.58x10^6/uL (4.30-5.70) Hemoglobin 13.9g/dL (13.0-17.5) Hematocrit 42.0% (39.0-53.0) Mean Corpuscular Volume 92fL (79-100) Mean Corpuscular Hemoglobin 30pg (25-35) Mean Corpuscular Hemoglobin Concent 33g/dL (31-37) Red Cell Distribution Width 15.0% (11.5-14.5) Platelet Count 228x10^3/uL (140-400) Neutrophils (%) (Auto) 56% (31-73) Lymphocytes (%) (Auto) 34% (24-48) Monocytes (%) (Auto) 8% (0-9) Eosinophils (%) (Auto) 2% (0-3) Basophils (%) (Auto) 1% (0-3) Neutrophils # (Auto) 6.2x10^3uL (1.8-7.7) Lymphocytes # (Auto) 3.8x10^3/uL (1.0-4.8) Monocytes # (Auto) 0.9x10^3/uL (0.0-1.1) Eosinophils # (Auto) 0.2x10^3/uL (0.0-0.7) Basophils # (Auto) 0.1x10^3/uL (0.0-0.2) Sodium Level 140mmol/L (136-145) Potassium Level 3.7mmol/L (3.5-5.1) Chloride Level 107mmol/L (98-107) Carbon Dioxide Level 24mmol/L (21-32) Anion Gap 9 (6-14) Blood Urea Nitrogen 13mg/dL (8-26) Creatinine 1.0mg/dL (0.7-1.3) Estimated GFR (Cockcroft-Gault) 78.2 Glucose Level 96mg/dL (70-99) Calcium Level 8.7mg/dL (8.5-10.1) Thyroid Stimulating Hormone (TSH) 2.143uIU/mL (0.358-3.74) Free Thyroxine 0.90ng/dL (0.76-1.46) Laboratory Tests Test 05/15/16 12:25 05/15/16 18:20 05/16/16 03:28 Troponin I Quantitative < 0.017ng/mL (0.000-0.055) < 0.017ng/mL (0.000-0.055) White Blood Count 11.1x10^3/uL (4.0-11.0) Red Blood Count 4.58x10^6/uL (4.30-5.70) Hemoglobin 13.9g/dL (13.0-17.5) Hematocrit 42.0% (39.0-53.0) Mean Corpuscular Volume 92fL (79-100) Mean Corpuscular Hemoglobin 30pg (25-35) Mean Corpuscular Hemoglobin Concent 33g/dL (31-37) Red Cell Distribution Width 15.0% (11.5-14.5) Platelet Count 228x10^3/uL (140-400) Neutrophils (%) (Auto) 56% (31-73) Lymphocytes (%) (Auto) 34% (24-48) Monocytes (%) (Auto) 8% (0-9) Eosinophils (%) (Auto) 2% (0-3) Basophils (%) (Auto) 1% (0-3) Neutrophils # (Auto) 6.2x10^3uL (1.8-7.7) Lymphocytes # (Auto) 3.8x10^3/uL (1.0-4.8) Monocytes # (Auto) 0.9x10^3/uL (0.0-1.1) Eosinophils # (Auto) 0.2x10^3/uL (0.0-0.7) Basophils # (Auto) 0.1x10^3/uL (0.0-0.2) Sodium Level 140mmol/L (136-145) Potassium Level 3.7mmol/L (3.5-5.1) Chloride Level 107mmol/L (98-107) Carbon Dioxide Level 24mmol/L (21-32) Anion Gap 9 (6-14) Blood Urea Nitrogen 13mg/dL (8-26) Creatinine 1.0mg/dL (0.7-1.3) Estimated GFR (Cockcroft-Gault) 78.2 Glucose Level 96mg/dL (70-99) Calcium Level 8.7mg/dL (8.5-10.1) Thyroid Stimulating Hormone (TSH) 2.143uIU/mL (0.358-3.74) Free Thyroxine 0.90ng/dL (0.76-1.46) Medications Current Medications Aspirin (Children'S Aspirin) 324 mg 1X ONCE PO Last administered on 05/15/16 04:24; Start 05/15/16 at 04:30; Stop 05/15/16 at 04:31; Status DC Iohexol (Omnipaque 300 Mg/ml) 75 ml 1X ONCE IV Last administered on 05/15/16 05:44; Start 05/15/16 at 05:45; Stop 05/15/16 at 05:46; Status DC Hydromorphone HCl (Dilaudid) 0.5 mg PRN Q1HR PRN IV SEVERE PAIN Last administered on 05/15/16 06:00; Start 05/15/16 at 05:45 Info (Do NOT chart on this entry -- for MONITORING) 1 each PRN DAILY PRN MC SEE COMMENTS; Start 05/15/16 at 05:45; Stop 05/15/16 at 11:52; Status DC Ondansetron HCl (Zofran) 4 mg PRN Q8HRS PRN IV NAUSEA/VOMITING; Start 05/15/16 at 06:45; Stop 05/15/16 at 17:06; Status DC Morphine Sulfate 2 mg PRN Q2HR PRN IV PAIN Last administered on 05/15/16 11:03 ; Start 05/15/16 at 06:45; Stop 05/15/16 at 17:05; Status DC Aspirin (Ecotrin) 81 mg DAILY08 PO Last administered on 05/16/16 08:07; Start 05/15/16 at 11:00 Celecoxib (Celebrex) 200 mg DAILY PO ; Start 05/15/16 at 11:00 Montelukast Sodium (Singulair) 10 mg HS PO Last administered on 05/15/16 20:21 ; Start 05/15/16 at 21:00 Metoprolol Tartrate (Lopressor) 50 mg BID PO ; Start 05/15/16 at 11:00; Stop 05/15 at 11:00; Status DC Rivaroxaban (Xarelto) 20 mg DAILY PO Last administered on 05/16/16 08:07; Start 05/15/16 at 11:00 Rivaroxaban (Xarelto) 20 mg DAILY PO ; Start 05/16/16 at 09:00; Status UNV Sertraline HCl (Zoloft) 50 mg DAILY PO Last administered on 05/16/16 08:07; Start 05/15/16 at 11:30 Non-Formulary Medication 1 each DAILY PO ; Start 05/16/16 at 09:00; Stop 05/16/16 at 09:00; Status DC Pantoprazole Sodium (Protonix) 40 mg DAILYAC PO Last administered on 05/16/16 08:07; Start 05/15/16 at 11:30 Atorvastatin Calcium (Lipitor) 80 mg QHS PO Last administered on 05/15/16 20:21 ; Start 05/15/16 at 21:00 Hydralazine HCl 10 mg 10 mg PRN Q4HRS PRN IVP ELEVATED BP, SEE COMMENTS; Start 05/15/16 at 10:45 Sodium Chloride (Iv Sodium Chloride 0.9% 1000ml Bag) 1,000 ml @ 75 mls/hr [id number] IV Last administered on 05/16/16 00:16; Start 05/15/16 at 10:45 Acetaminophen (Tylenol) 650 mg PRN Q6HRS PRN PO MILD PAIN / TEMP; Start at 10:45 Ondansetron HCl (Zofran) 4 mg PRN Q6HRS PRN IV NAUSEA/VOMITING Last administered on 05/16/16 08:37; Start 05/15/16 at 10:45 Morphine Sulfate 2 mg PRN Q2HR PRN IV PAIN SEVERE Last administered on 16:00; Start 05/15/16 at 10:45 Morphine Sulfate 4 mg PRN Q2HR PRN IV PAIN SEVERE; Start 05/15/16 at 10:45 Acetaminophen/ Hydrocodone Bitart (Lortab 5/325) 1 tab PRN Q4HRS PRN PO MODERATE - SEVERE PAIN Last administered on 05/16/16 08:19; Start 05/15/16 at 10: 45 Losartan Potassium (Cozaar) 25 mg DAILY PO Last administered on 05/16/16 08:09 ; Start 05/15/16 at 11:30 Iohexol (Omnipaque 240 Mg/ml) 30 ml 1X ONCE PO ; Start 05/15/16 at 12:00; Stop 05/15/16 at 12:01; Status DC Info (Do NOT chart on this entry -- for MONITORING) 1 each PRN DAILY PRN MC SEE COMMENTS; Start 05/15/16 at 12:00; Stop 05/17/16 at 11:59 Info (Anti-Coagulation Monitoring By Pharmacy) 1 each PRN DAILY PRN MC SEE COMMENTS; Start 05/15/16 at 17:15 Active Scripts Active Reported Xarelto (Rivaroxaban) 10 Mg Tablet 20 Mg PO DAILY Singulair Tablet (Montelukast Sodium) 10 Mg Tablet 10 Mg PO HS Xarelto (Rivaroxaban) 10 Mg Tablet 20 Mg PO DAILY Zoloft (Sertraline Hcl) 50 Mg Tablet 50 Mg PO DAILY Bystolic (Nebivolol) 10 Mg Tablet 10 Mg PO DAILY Vitals/I & O Vital Sign - Last 24 Hours 05/15/16 05/15/16 05/15/16 05/15/16 16:00 16:12 16:30 19:00 Temp 96.9 96.9 Pulse 56 52 Resp 20 20 18 B/P 143/80 125/66 Pulse Ox 97 97 95 O2 Delivery Room Air Room Air Room Air 05/15/16 05/15/16 05/15/16 2/1/17 20:00 20:23 21:23 23:00 Temp 98.6 98.6 Pulse 53 Resp 18 18 B/P 123/70 Pulse Ox 97 97 95 O2 Delivery Room Air Room Air Room Air 05/16/16 05/16/16 05/16/16 05/16/16 02:07 03:00 07:15 08:00 Temp 96.8 96.6 96.8 96.6 Pulse 49 48 Resp 18 18 B/P 131/80 139/75 Pulse Ox 95 95 96 O2 Delivery Room Air Room Air Room Air Room Air 05/16/16 05/16/16 05/16/16 08:09 08:19 10:17 Temp 97.7 97.7 Pulse 56 49 Resp 18 18 B/P 139/75 124/81 Pulse Ox 95 O2 Delivery Room Air Room Air Intake and Output 05/15/16 05/15/16 05/16/16 15:00 23:00 07:00 Intake Total 250 ml 1000 ml 360 ml Balance 250 ml 1000 ml 360 ml JUVENAL SMITH MD May 16, 2016 12:08
--- NOTE | 2016-05-16 14:16 | PDOC ---
PULMONARY PROGRESS NOTES Vitals Vital Signs Date Time Temp Pulse Resp B/P Pulse Ox O2 Delivery O2 Flow Rate FiO2 05/16/16 13:34 20 95 Room Air 05/16/16 10:17 97.7 49 124/81 97.7 General: Alert, Oriented X4 Lungs: Clear Cardiovascular: S1, S2 Abdomen: Soft, Non-tender Extremities: No Edema Labs Laboratory Tests Test 05/15/16 04:25 05/15/16 05:15 05/15/16 12:25 05/15/16 18:20 Sodium Level 143mmol/L (136-145) Potassium Level 3.7mmol/L (3.5-5.1) Chloride Level 108mmol/L (98-107) Carbon Dioxide Level 23mmol/L (21-32) Anion Gap 12 (6-14) Blood Urea Nitrogen 13mg/dL (8-26) Creatinine 1.1mg/dL (0.7-1.3) Estimated GFR (Cockcroft-Gault) 70.0 Glucose Level 105mg/dL (70-99) Calcium Level 8.9mg/dL (8.5-10.1) Total Bilirubin 0.3mg/dL (0.2-1.0) Direct Bilirubin 0.1mg/dL (0.0-0.2) Aspartate Amino Transf (AST/SGOT) 15U/L (15-37) Alanine Aminotransferase (ALT/SGPT) 30U/L (16-63) Alkaline Phosphatase 80U/L (46-116) Troponin I Quantitative < 0.017ng/mL (0.000-0.055) < 0.017ng/mL (0.000-0.055) < 0.017ng/mL (0.000-0.055) NW-Czg-P-Type Natriuretic Peptide 318pg/mL (0-124) Total Protein 6.4g/dL (6.4-8.2) Albumin 3.5g/dL (3.4-5.0) Triglycerides Level 209mg/dL (0-150) Cholesterol Level 234mg/dL (0-200) LDL Cholesterol, Calculated 140mg/dL (0-100) VLDL Cholesterol, Calculated 42mg/dL (0-40) HDL Cholesterol 52mg/dL (40-60) Cholesterol/HDL Ratio 4.5 Lipase 243U/L (73-393) White Blood Count 12.6x10^3/uL (4.0-11.0) Red Blood Count 4.69x10^6/uL (4.30-5.70) Hemoglobin 14.1g/dL (13.0-17.5) Hematocrit 42.6% (39.0-53.0) Mean Corpuscular Volume 91fL (79-100) Mean Corpuscular Hemoglobin 30pg (25-35) Mean Corpuscular Hemoglobin Concent 33g/dL (31-37) Red Cell Distribution Width 15.0% (11.5-14.5) Platelet Count 264x10^3/uL (140-400) Neutrophils (%) (Auto) 65% (31-73) Lymphocytes (%) (Auto) 26% (24-48) Monocytes (%) (Auto) 8% (0-9) Eosinophils (%) (Auto) 1% (0-3) Basophils (%) (Auto) 1% (0-3) Neutrophils # (Auto) 8.2x10^3uL (1.8-7.7) Lymphocytes # (Auto) 3.2x10^3/uL (1.0-4.8) Monocytes # (Auto) 1.0x10^3/uL (0.0-1.1) Eosinophils # (Auto) 0.1x10^3/uL (0.0-0.7) Basophils # (Auto) 0.1x10^3/uL (0.0-0.2) Test 05/16/16 03:28 White Blood Count 11.1x10^3/uL (4.0-11.0) Red Blood Count 4.58x10^6/uL (4.30-5.70) Hemoglobin 13.9g/dL (13.0-17.5) Hematocrit 42.0% (39.0-53.0) Mean Corpuscular Volume 92fL (79-100) Mean Corpuscular Hemoglobin 30pg (25-35) Mean Corpuscular Hemoglobin Concent 33g/dL (31-37) Red Cell Distribution Width 15.0% (11.5-14.5) Platelet Count 228x10^3/uL (140-400) Neutrophils (%) (Auto) 56% (31-73) Lymphocytes (%) (Auto) 34% (24-48) Monocytes (%) (Auto) 8% (0-9) Eosinophils (%) (Auto) 2% (0-3) Basophils (%) (Auto) 1% (0-3) Neutrophils # (Auto) 6.2x10^3uL (1.8-7.7) Lymphocytes # (Auto) 3.8x10^3/uL (1.0-4.8) Monocytes # (Auto) 0.9x10^3/uL (0.0-1.1) Eosinophils # (Auto) 0.2x10^3/uL (0.0-0.7) Basophils # (Auto) 0.1x10^3/uL (0.0-0.2) Sodium Level 140mmol/L (136-145) Potassium Level 3.7mmol/L (3.5-5.1) Chloride Level 107mmol/L (98-107) Carbon Dioxide Level 24mmol/L (21-32) Anion Gap 9 (6-14) Blood Urea Nitrogen 13mg/dL (8-26) Creatinine 1.0mg/dL (0.7-1.3) Estimated GFR (Cockcroft-Gault) 78.2 Glucose Level 96mg/dL (70-99) Calcium Level 8.7mg/dL (8.5-10.1) Thyroid Stimulating Hormone (TSH) 2.143uIU/mL (0.358-3.74) Free Thyroxine 0.90ng/dL (0.76-1.46) Laboratory Tests Test 05/15/16 18:20 05/16/16 03:28 Troponin I Quantitative < 0.017ng/mL (0.000-0.055) White Blood Count 11.1x10^3/uL (4.0-11.0) Red Blood Count 4.58x10^6/uL (4.30-5.70) Hemoglobin 13.9g/dL (13.0-17.5) Hematocrit 42.0% (39.0-53.0) Mean Corpuscular Volume 92fL (79-100) Mean Corpuscular Hemoglobin 30pg (25-35) Mean Corpuscular Hemoglobin Concent 33g/dL (31-37) Red Cell Distribution Width 15.0% (11.5-14.5) Platelet Count 228x10^3/uL (140-400) Neutrophils (%) (Auto) 56% (31-73) Lymphocytes (%) (Auto) 34% (24-48) Monocytes (%) (Auto) 8% (0-9) Eosinophils (%) (Auto) 2% (0-3) Basophils (%) (Auto) 1% (0-3) Neutrophils # (Auto) 6.2x10^3uL (1.8-7.7) Lymphocytes # (Auto) 3.8x10^3/uL (1.0-4.8) Monocytes # (Auto) 0.9x10^3/uL (0.0-1.1) Eosinophils # (Auto) 0.2x10^3/uL (0.0-0.7) Basophils # (Auto) 0.1x10^3/uL (0.0-0.2) Sodium Level 140mmol/L (136-145) Potassium Level 3.7mmol/L (3.5-5.1) Chloride Level 107mmol/L (98-107) Carbon Dioxide Level 24mmol/L (21-32) Anion Gap 9 (6-14) Blood Urea Nitrogen 13mg/dL (8-26) Creatinine 1.0mg/dL (0.7-1.3) Estimated GFR (Cockcroft-Gault) 78.2 Glucose Level 96mg/dL (70-99) Calcium Level 8.7mg/dL (8.5-10.1) Thyroid Stimulating Hormone (TSH) 2.143uIU/mL (0.358-3.74) Free Thyroxine 0.90ng/dL (0.76-1.46) Medications Active Scripts Medications Dose Route/Sig Days Date Category Xarelto (Rivaroxaban) 10 Mg Tablet 20 Mg PO DAILY 10/22/14 Reported Singulair Tablet (Montelukast Sodium) 10 Mg Tablet 10 Mg PO HS 02/11/14 Reported Xarelto (Rivaroxaban) 10 Mg Tablet 20 Mg PO DAILY 02/11/14 Reported Zoloft (Sertraline Hcl) 50 Mg Tablet 50 Mg PO DAILY 06/08/13 Reported Bystolic (Nebivolol) 10 Mg Tablet 10 Mg PO DAILY 06/08/13 Reported Impression . FULL CONSULT DICTATED AGREE WITH CURRENT RX NO FURTHER WORK UP FROM PULMONARY D/C OK FROM MY STANDPOINT CONTINUE LIFETIME ANTICOAGULATION FOLLOW UP WITH DR BOYKIN INSTRUCTED ARMANI TRACEY MD May 16, 2016 14:16
[2016-05-16 14:30] VITALS: BP 133/79
[2016-05-16 19:00] VITALS: BP 119/80
[2016-05-16] MEDS: ATORVASTATIN CALCIUM 40 MG TABLET. PO SCH (20:09)
[2016-05-16] MEDS: MONTELUKAST SODIUM 10 MG TABLET. PO SCH (20:09)
[2016-05-16 22:59] VITALS: BP 122/86
[2016-05-17] MEDS: IV NORMAL SALINE 1000ML BAG 1,000 ML IV SCH (02:20)
[2016-05-17] MEDS: HYDROCODONE/APAP 5/325MG TABLET. PO PRN ×2 (02:24→08:22)
--- NOTE | 2016-05-17 03:59 | CONS ---
DATE OF CONSULTATION: 05/16/2016 ATTENDING PHYSICIAN: Dr. Craven REASON FOR CONSULTATION: The patient is seen in Pulmonary consultation at the request of Dr. Craven for chest pain and history of PE. HISTORY OF PRESENT ILLNESS: The patient is a 55-year-old that was having flu-like symptoms for the last couple of days, initially started with GI disturbance, then started to experience some abdominal discomfort. He also has some chest pain. He has a history of pulmonary embolism and I was asked to see him in consultation. The patient does not think that this is related to his PE. He was ____ severely short of breath. He denies productive cough. PAST MEDICAL HISTORY: 1. Extensive pulmonary embolism, initially in 05/2013, on lifetime anticoagulation. 2. Obstructive sleep apnea. 3. Hypertension. 4. Hyperlipidemia. 5. Cholelithiasis. PAST SURGICAL HISTORY: Status post cholecystectomy. FAMILY HISTORY: Coronary artery disease. 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 Denies any alcohol or tobacco. ALLERGIES: No known drug allergies. CURRENT MEDICATIONS: List was reviewed. PHYSICAL EXAMINATION: GENERAL: The patient was in no respiratory distress, requiring no oxygen supplementation. VITAL SIGNS: Stable. O2 saturation was greater than 92%. HEENT: Eyes, the sclerae were nonicteric. NECK: Jugular venous distention was not elevated. No lymphadenopathy. CHEST: Full expansion. LUNGS: Adequate airway flow, no wheezes. CARDIOVASCULAR: Regular rate and rhythm with S1, S2, no S3. ABDOMEN: Soft, nontender, nondistended. EXTREMITIES: No clubbing, cyanosis or edema. NEUROLOGIC: The patient was awake, alert, following commands. A detailed neuro exam was not performed. LABORATORY DATA: Reviewed. White count was slightly elevated. Electrolytes were noted. BUN and creatinine were noted. Chest x-ray was reviewed. No acute cardiopulmonary process. CT angiogram was performed. There were no central pulmonary emboli. IMPRESSION: 1. History of pulmonary embolism, the patient on lifetime anticoagulation, clinical presentation not compatible with recurrent PE. CT angiogram was of poor quality for peripheral evaluation. There is no evidence of central pulmonary emboli. 2. Obstructive sleep apnea. The patient will continue home BiPAP. 3. Morbid obesity. 4. Suspect viral syndrome. PLAN: At this point, I recommend no additional workup. Discharge home when okay with other physicians and GI service. The patient will continue lifetime anticoagulation. Follow up in the office with Dr. Lopez. I do appreciate the privilege in sharing in the patient's care. ARMANI TRACEY MD DR: QUIANA/danie JOB#: [id number] / [id number]
[2016-05-17 05:06] LABS: BASO # 0.1 x10^3/uL (0.0-0.2); BASO % 1 % (0-3); EOS % 2 % (0-3); HEMATOCRIT 39.7 % (39.0-53.0); HEMOGLOBIN 13.5 g/dL (13.0-17.5); LYMPH # 2.8 x10^3/uL (1.0-4.8); LYMPH % 28 % (24-48); MEAN CORPUSCULAR HEMOGLOBIN 30 pg (25-35); MEAN CORPUSCULAR HGB CONC 34 g/dL (31-37); MEAN CORPUSCULAR VOLUME 89 fL (79-100); MONO % 9 % (0-9); NEUT % 62 % (31-73); PLATELET COUNT 226 x10^3/uL (140-400); RED BLOOD COUNT 4.44 x10^6/uL (4.30-5.70); RED CELL DISTRIBUTION WIDTH 14.8 % (11.5-14.5); WHITE BLOOD COUNT 10.2 x10^3/uL (4.0-11.0)
[2016-05-17 05:38] LABS: CALCIUM 8.5 mg/dL (8.5-10.1); CREATININE 0.9 mg/dL (0.7-1.3); GFR 88.3; POTASSIUM 3.6 mmol/L (3.5-5.1)
[2016-05-17 07:30] VITALS: BP 125/64
[2016-05-17] MEDS: PANTOPRAZOLE 40 MG TABLET. PO SCH (08:15)
[2016-05-17] MEDS: ASPIRIN ENTERIC COATED 81 MG TABLET.DR. PO SCH (08:15)
[2016-05-17] MEDS: LOSARTAN POTASSIUM 25 MG TABLET. PO SCH (08:16)
[2016-05-17] MEDS: SERTRALINE 50 MG TABLET. PO SCH (08:17)
[2016-05-17] MEDS: RIVAROXABAN 10 MG TABLET. PO SCH (08:17)
[2016-05-17] MEDS: CELECOXIB 200 MG CAPSULE PO SCH (09:00)
--- NOTE | 2016-05-17 09:46 | PDOC ---
Subjective: Subjective: Ate regular food for breakfast. Overall, much less nausea and reflux. Still has pain - now says unrelated to eating, fairly constant (but not severe). Feels well enough to go home. Objective: Vital Signs: Vital Signs Date Time Temp Pulse Resp B/P Pulse Ox O2 Delivery O2 Flow Rate FiO2 05/17/16 08:22 96 Room Air 05/17/16 08:16 53 125/64 05/17/16 07:30 98.4 18 98.4 Labs: Laboratory Tests Test 05/17/16 04:00 White Blood Count 10.2x10^3/uL Red Blood Count 4.44x10^6/uL Hemoglobin 13.5g/dL Hematocrit 39.7% Mean Corpuscular Volume 89fL Mean Corpuscular Hemoglobin 30pg Mean Corpuscular Hemoglobin Concent 34g/dL Red Cell Distribution Width 14.8% Platelet Count 226x10^3/uL Neutrophils (%) (Auto) 62% Lymphocytes (%) (Auto) 28% Monocytes (%) (Auto) 9% Eosinophils (%) (Auto) 2% Basophils (%) (Auto) 1% Neutrophils # (Auto) 6.3x10^3uL Lymphocytes # (Auto) 2.8x10^3/uL Monocytes # (Auto) 0.9x10^3/uL Eosinophils # (Auto) 0.2x10^3/uL Basophils # (Auto) 0.1x10^3/uL Sodium Level 143mmol/L Potassium Level 3.6mmol/L Chloride Level 109mmol/L Carbon Dioxide Level 23mmol/L Anion Gap 11 Blood Urea Nitrogen 9mg/dL Creatinine 0.9mg/dL Estimated GFR (Cockcroft-Gault) 88.3 Glucose Level 88mg/dL Calcium Level 8.5mg/dL PE: GEN: NAD LUNGS: clear anteriorly HEART: RRR ABD: overweight, soft, BS+, still some right lateral tenderness NEURO/PSYCH: A & O 3 A/P: N/v, reflux - improved -h/o gastric sleeve, cholecystectomy -has continued PPI Right-sided pain -- Tolerating diet w/ less nausea, reflux. Would continue PPI - says he has omeprazole or Dexilant at home. Okay to DC per GI. JENNIFER WHITE May 17, 2016 09:46
[2016-05-17 10:15] VITALS: BP 133/85
[2016-05-17] MEDS ORDERED: PANT40TA5 PO (10:36)
[2016-05-17] MEDS ORDERED: ATOR40TA59 PO (10:36)
[2016-05-17] MEDS ORDERED: LOSA25TA PO (10:36)
--- NOTE | 2016-05-17 11:14 | PDOC ---
PULMONARY PROGRESS NOTES Vitals Vital Signs Date Time Temp Pulse Resp B/P Pulse Ox O2 Delivery O2 Flow Rate FiO2 05/17/16 10:15 96.9 59 18 133/85 95 Room Air 96.9 General: Alert, Oriented X4 Lungs: Clear Cardiovascular: S1, S2 Abdomen: Soft, Non-tender Extremities: No Edema Labs Laboratory Tests Test 05/15/16 12:25 05/15/16 18:20 05/16/16 03:28 05/17/16 04:00 Troponin I Quantitative < 0.017ng/mL (0.000-0.055) < 0.017ng/mL (0.000-0.055) White Blood Count 11.1x10^3/uL (4.0-11.0) 10.2x10^3/uL (4.0-11.0) Red Blood Count 4.58x10^6/uL (4.30-5.70) 4.44x10^6/uL (4.30-5.70) Hemoglobin 13.9g/dL (13.0-17.5) 13.5g/dL (13.0-17.5) Hematocrit 42.0% (39.0-53.0) 39.7% (39.0-53.0) Mean Corpuscular Volume 92fL (79-100) 89fL (79-100) Mean Corpuscular Hemoglobin 30pg (25-35) 30pg (25-35) Mean Corpuscular Hemoglobin Concent 33g/dL (31-37) 34g/dL (31-37) Red Cell Distribution Width 15.0% (11.5-14.5) 14.8% (11.5-14.5) Platelet Count 228x10^3/uL (140-400) 226x10^3/uL (140-400) Neutrophils (%) (Auto) 56% (31-73) 62% (31-73) Lymphocytes (%) (Auto) 34% (24-48) 28% (24-48) Monocytes (%) (Auto) 8% (0-9) 9% (0-9) Eosinophils (%) (Auto) 2% (0-3) 2% (0-3) Basophils (%) (Auto) 1% (0-3) 1% (0-3) Neutrophils # (Auto) 6.2x10^3uL (1.8-7.7) 6.3x10^3uL (1.8-7.7) Lymphocytes # (Auto) 3.8x10^3/uL (1.0-4.8) 2.8x10^3/uL (1.0-4.8) Monocytes # (Auto) 0.9x10^3/uL (0.0-1.1) 0.9x10^3/uL (0.0-1.1) Eosinophils # (Auto) 0.2x10^3/uL (0.0-0.7) 0.2x10^3/uL (0.0-0.7) Basophils # (Auto) 0.1x10^3/uL (0.0-0.2) 0.1x10^3/uL (0.0-0.2) Sodium Level 140mmol/L (136-145) 143mmol/L (136-145) Potassium Level 3.7mmol/L (3.5-5.1) 3.6mmol/L (3.5-5.1) Chloride Level 107mmol/L (98-107) 109mmol/L (98-107) Carbon Dioxide Level 24mmol/L (21-32) 23mmol/L (21-32) Anion Gap 9 (6-14) 11 (6-14) Blood Urea Nitrogen 13mg/dL (8-26) 9mg/dL (8-26) Creatinine 1.0mg/dL (0.7-1.3) 0.9mg/dL (0.7-1.3) Estimated GFR (Cockcroft-Gault) 78.2 88.3 Glucose Level 96mg/dL (70-99) 88mg/dL (70-99) Calcium Level 8.7mg/dL (8.5-10.1) 8.5mg/dL (8.5-10.1) Thyroid Stimulating Hormone (TSH) 2.143uIU/mL (0.358-3.74) Free Thyroxine 0.90ng/dL (0.76-1.46) Laboratory Tests Test 05/17/16 04:00 White Blood Count 10.2x10^3/uL (4.0-11.0) Red Blood Count 4.44x10^6/uL (4.30-5.70) Hemoglobin 13.5g/dL (13.0-17.5) Hematocrit 39.7% (39.0-53.0) Mean Corpuscular Volume 89fL (79-100) Mean Corpuscular Hemoglobin 30pg (25-35) Mean Corpuscular Hemoglobin Concent 34g/dL (31-37) Red Cell Distribution Width 14.8% (11.5-14.5) Platelet Count 226x10^3/uL (140-400) Neutrophils (%) (Auto) 62% (31-73) Lymphocytes (%) (Auto) 28% (24-48) Monocytes (%) (Auto) 9% (0-9) Eosinophils (%) (Auto) 2% (0-3) Basophils (%) (Auto) 1% (0-3) Neutrophils # (Auto) 6.3x10^3uL (1.8-7.7) Lymphocytes # (Auto) 2.8x10^3/uL (1.0-4.8) Monocytes # (Auto) 0.9x10^3/uL (0.0-1.1) Eosinophils # (Auto) 0.2x10^3/uL (0.0-0.7) Basophils # (Auto) 0.1x10^3/uL (0.0-0.2) Sodium Level 143mmol/L (136-145) Potassium Level 3.6mmol/L (3.5-5.1) Chloride Level 109mmol/L (98-107) Carbon Dioxide Level 23mmol/L (21-32) Anion Gap 11 (6-14) Blood Urea Nitrogen 9mg/dL (8-26) Creatinine 0.9mg/dL (0.7-1.3) Estimated GFR (Cockcroft-Gault) 88.3 Glucose Level 88mg/dL (70-99) Calcium Level 8.5mg/dL (8.5-10.1) Medications Active Scripts Medications Dose Route/Sig Days Date Category Xarelto (Rivaroxaban) 10 Mg Tablet 20 Mg PO DAILY 10/22/14 Reported Singulair Tablet (Montelukast Sodium) 10 Mg Tablet 10 Mg PO HS 10/31/14 Reported Xarelto (Rivaroxaban) 10 Mg Tablet 20 Mg PO DAILY 02/11/14 Reported Zoloft (Sertraline Hcl) 50 Mg Tablet 50 Mg PO DAILY 06/08/13 Reported Bystolic (Nebivolol) 10 Mg Tablet 10 Mg PO DAILY 06/08/13 Reported Impression . 60yo F, with HTN, DM2, comes for chest pain. She has had similar chest pain before. SHe started to have substernal chest pain , pressure like, radiating to left arm yesterday, with sob, diaphoresis, no N/V , fever, chills. the pain lasted for about 1 hour, gone now. she also has chest tenderness, and epigastric area tenderness. denies GERD. has dry cough with runny nose for 2 days. EKG, CE neg. ARMANI TRACEY MD May 17, 2016 11:14
--- NOTE | 2016-05-17 11:41 | PDOC3 ---
Discharge Summary [facility] Date of Admission: May 15, 2016 Discharge Date: May 17, 2016 Admitting Diagnosis 1. atypical chest pain, 2/2 anxiety or related to abd pain likely 2. right flank pain with N/V 3. htn 4. hld 5. h/o gastric ulcer, recent post gastric sleeve gastrectomy for weight loss 6. h/o PE, still on xarelto 7. ct found thyroid nodule Problems: Final Diagnosis Problems Medical Problems: (1) Abdominal pain Status: Acute (2) Chest pain Status: Acute (3) Nausea & vomiting Status: Acute CONSULTS gi card Brief Hospital Course 55-year-old male presenting to the emergency department today for chest pain. He woke up with chest pain, substernal, pressure, radiating to bl jaws, for 1min , happened 2 times. He also has had N/V and right flank pain for 1 week. no diarrhea, or constipation. no fever, chills. He has a history of a cholecystectomy in the past and gastric sleeve last year for losing weight had PE before , but on xarelto for a long time, sees dr. Lopez. CTA showed possible PE HAD EGD, Colonscopy before, was told had gastric ulcer pt got Echo, normal. ABd CT neg. N/V better ,still lower abd pain, could 2/2 right hip pain, however, pt refused to get XR now or psysiatry consult and agree to fu with PCP. cont xarelto lifetime. thyroid had a nodule, repeated US showed slightly enlarged, TSH T4 Normal, told pt to fu with PCP and enco dc home dc time 35min General: Alert, Oriented X3, Cooperative, No acute distress Heart: Regular rate (no tele, RRR), Normal S1, Normal S2, No murmurs Lungs: Clear Abdomen: Soft, Other (right side abdominal mild tednerness with deep palpation) Extremities: No cyanosis, No edema Skin: No breakdown, No significant lesion Problems: Disposition home CONDITION AT DISCHARGE: Improved Diet regular Scheduled Atorvastatin Calcium (Atorvastatin Calcium) 40 MG PO QHS Losartan Potassium (Cozaar) 25 MG PO DAILY Montelukast Sodium (Singulair Tablet) 10 MG PO HS (Reported) Pantoprazole Sodium (Pantoprazole Sodium) 40 MG PO DAILYAC Rivaroxaban (Xarelto) 20 MG PO DAILY (Reported) Sertraline Hcl (Zoloft) 50 MG PO DAILY (Reported) Discontinued Medications Nebivolol Hcl (Bystolic) 10 MG PO DAILY (Reported) Rivaroxaban (Xarelto) 20 MG PO DAILY (Reported) Follow Up pcp in 2 weeks JUVENAL SMITH MD May 17, 2016 11:41
[2016-05-17] MEDS ORDERED: ATORVASTATIN CALCIUM 40 MG TABLET. PO SCH (21:00)
== END 2016-05-16 12:00 | disposition home or self-care (01) | DRG 313 ==
LOC: ER 04:04 → OBSVTOIN 05:21 → 5 NORTH 05:21
PROVIDERS: ADMIT Internal Medicine; ATTEND Internal Medicine
DX: R07.89 Other chest pain (principal); F41.9 Anxiety disorder, unspecified; E04.1 Nontoxic single thyroid nodule; R63.4 Abnormal weight loss; E78.00 Pure hypercholesterolemia, unspecified; E78.5 Hyperlipidemia, unspecified; F32.9 Major depressive disorder, single episode, unspecified; G47.33 Obstructive sleep apnea (adult) (pediatric); I11.9 Hypertensive heart disease without heart failure; K21.9 Gastro-esophageal reflux disease without esophagitis; K29.50 Unspecified chronic gastritis without bleeding; M10.9 Gout, unspecified; E66.01 Morbid (severe) obesity due to excess calories; M19.90 Unspecified osteoarthritis, unspecified site; E11.9 Type 2 diabetes mellitus without complications; R61 Generalized hyperhidrosis; M25.551 Pain in right hip; Z79.2 Long term (current) use of antibiotics; Z79.899 Other long term (current) drug therapy; Z90.49 Acquired absence of other specified parts of digestive tract; Z86.711 Personal history of pulmonary embolism; Z87.11 Personal history of peptic ulcer disease; Z86.718 Personal history of other venous thrombosis and embolism; Z87.19 Personal history of other diseases of the digestive system; Z82.49 Family history of ischemic heart disease and other diseases of the circulatory system
CPT/HCPCS: 36415; 71010; 71275; 74176; 76536; 80048; 80061; 80076; 83690; 83880; 84439; 84443; 84484; 85027; 93005; 93306; 96374; J1170; J2270; J2405; J7030; Q9967; 99285-25

== ENCOUNTER 2016-08-19 06:33 | Observation (INO) | payer BC ==
[2016-08-19] VITALS (8 sets, daily range): BP systolic 103–122; BP diastolic 56–71
[~2016-08-19] VITALS: Ht 177.8 cm; Wt 120.7 kg
[~2016-08-19 06:33] MED LIST changes: +ATOR40TA59 PO; +LOSA25TA PO; +PANT40TA5 PO
[2016-08-19] MEDS ORDERED: ONDANSETRON PF 4 MG/2 ML VIAL. IV PRN ×2 (07:00→09:45)
[2016-08-19] MEDS ORDERED: IV RINGERS,LACTATED 1000ML 1,000 ML IV SCH ×2 (07:00→07:30)
[2016-08-19] MEDS ORDERED: LIDOCAINE 1% 1 ML SYRINGE. ID PRN (07:00)
[2016-08-19] MEDS ORDERED: fentaNYL PF VIAL 100 MCG/2 ML VIAL IV PRN (07:00)
[2016-08-19] MEDS ORDERED: HYDROmorphone 2 MG/ML VIAL IV PRN (07:00)
[2016-08-19] MEDS ORDERED: PROCHLORPERAZINE 10 MG/2 ML VIAL. IV PRN (07:00)
[2016-08-19] MEDS ORDERED: SUCCINYLCHOLINE 200 MG/10 ML VIAL. ONE (07:14)
[2016-08-19] MEDS ORDERED: LIDOCAINE 2% 100 MG/5 ML SYRINGE. ONE (07:14)
[2016-08-19] MEDS ORDERED: PROPOFOL 20 ML IV ONE (07:14)
[2016-08-19] MEDS ORDERED: fentaNYL PF VIAL 100 MCG/2 ML VIAL ONE ×2 (07:14→08:59)
[2016-08-19] MEDS: BUPIVACAINE-EPI 0.25%-1:200000 50 ML VIAL. ONE ×2 (07:32→09:25)
[2016-08-19] MEDS ORDERED: ACETAMINOPHEN INTRAVENOUS 100 ML IV PRN (08:00)
[2016-08-19] MEDS ORDERED: DESFLURANE 61 TO 120 MINUTES IH ONE (08:20)
[2016-08-19] MEDS ORDERED: ePHEDrine PF IN SALINE 50 MG/5 ML DISP.SYRIN IV ONE (08:20)
[2016-08-19] MEDS ORDERED: DEXAMETHASONE SOD PHOS 20 MG/5 ML VIAL. ONE (08:20)
[2016-08-19] MEDS ORDERED: ONDANSETRON PF 4 MG/2 ML VIAL. ONE (08:38)
--- NOTE | 2016-08-19 09:41 | PDOC ---
BRIEF OPERATIVE NOTE Date: August 19, 2016 Pre-Op Diagnosis Left thyroid mass Post-Op Diagnosis Same Procedure Performed Total Thyroidectomy Surgeon Andrew Oliver Anesthesia Type: General Blood Loss 50ml Specimens Obtained Thyroid Findings as above Complications None GONZALES KIDD MD August 19, 2016 09:41
[2016-08-19] MEDS ORDERED: oxyCODONE/APAP 5/325 1 TAB TABLET PO PRN (09:45)
[2016-08-19] MEDS ORDERED: 0.9 % SODIUM CHLORIDE 10 ML DISP.SYRIN. IV PRN (09:45)
[2016-08-19] MEDS ORDERED: MORPHINE SULFATE 2 MG/ML DISP.SYRIN. IV PRN (09:45)
[2016-08-19] MEDS: fentaNYL PF VIAL 100 MCG/2 ML VIAL IV PRN ×4 (09:57→11:11)
[2016-08-19] MEDS: MORPHINE SULFATE 2 MG/ML DISP.SYRIN. IV PRN ×4 (09:58→11:12)
[2016-08-19] MEDS ORDERED: KETOROLAC 15 MG/ML VIAL. ONE (10:10)
[2016-08-19] MEDS: KETOROLAC 15 MG/ML VIAL. IV SCH ×2 (11:12→17:36)
[2016-08-19] MEDS: IV DEXTROSE 5%-LACT RINGERS 1,000 ML IV SCH ×2 (11:43→17:36)
--- NOTE | 2016-08-19 12:39 | OP ---
DATE OF SURGERY: 08/19/2016 PREOPERATIVE DIAGNOSIS: Left thyroid mass. POSTOPERATIVE DIAGNOSIS: Left thyroid mass. PROCEDURE: Total thyroidectomy. SURGEON: Alex Kidd MD. APPLICATIONS ARCHITECT: ____ INDICATIONS: The patient is a 56-year-old gentleman who was diagnosed with a left thyroid mass approximately a year ago, followup ultrasound, which showed enlarging mass increased in size at 4 cm. He also has some small nodules on the right. I had a long discussion with the patient including risk and benefits do on a total thyroid versus partial including bleeding, infection, injury to the recurrent laryngeal nerve, alternatives of this procedure were also discussed with the patient who seemed to understand and gave verbal and written consent to have total thyroidectomy. DESCRIPTION OF PROCEDURE: The patient was taken to the operating room and placed in the supine position, general anesthesia was initiated. Once the patient was asleep and intubated, his neck was prepped and draped in usual sterile fashion using ChloraPrep. The NIM stimulator was placed. An incision with 15 blade scalpel was made and transversely across the neck two fingerbreadths above the sternal notch. This was carried down through subcutaneous tissues using electrocautery to provide hemostasis down to the platysmus muscle. A flap was propagated superiorly and inferiorly with sharp and blunt dissection. Hoen retractor was then placed. The muscles in the midline were split with electrocautery. Attention was first turned to the right side where the superior thyroid vessels were encircled with right angle and tied with 2-0 silk ties and transected with the Harmonic scalpel. The dissection continued in the posterior or inferior vessels which were all similarly tied and the thyroid was taken off ____ with Harmonic to the midline. Attention was then turned to the left side, similar dissection was noted. There was quite large nodule in the inferior pole of the left thyroid. This was brought up into the wound. The vessels were tied. The inferior and superior vessels were tied and transected with the Harmonic. The gland was completely removed and sent for pathology with long stitch on the left side and a short at the superior right pole. The neck was irrigated and suctioned dried. Hemostasis to be appropriate and the midline muscles were returned and sewn in place with a running 3-0 Vicryl. The platysmus was reapproximated with 3-0 Vicryl single interrupted sutures. The skin was reapproximated with 4-0 subcuticular Monocryl. Mastisol, Steri-Strips and island dressing were applied. The patient was awakened, extubated in the operating room, taken to recovery in stable condition. All sponge, instrument, needles counts listed as correct. Estimated blood loss was 50 mL. ALEX KIDD MD DR: AYSE/danie JOB#: [id number] / [id number] YOHAN Foley MD
[2016-08-19] MEDS: oxyCODONE/APAP 5/325 1 TAB TABLET PO PRN ×2 (15:20→20:18)
[2016-08-20] MEDS: KETOROLAC 15 MG/ML VIAL. IV SCH ×3 (00:54→11:29)
[2016-08-20 03:00] VITALS: BP 105/54
[2016-08-20 07:00] VITALS: BP 122/78
[2016-08-20] MEDS: oxyCODONE/APAP 5/325 1 TAB TABLET PO PRN (07:59)
[2016-08-20 11:00] VITALS: BP 133/97
--- NOTE | 2016-08-20 12:16 | DISCH ---
DISCHARGE INSTRUCTIONS Condition on Discharge Condition on Discharge: Stable Activity After Discharge Activity Instructions for Disc: Activity as tolerated Diet after Discharge Diet after Discharge: Regular Wound Incision Care Other wound/incision instructi: Isamar hahn Contacting the after DC Call your doctor for: If your condition worsens Follow-Up Follow up with: Dr Kidd in 1 week GONZALES KIDD MD August 20, 2016 12:16
[2016-08-20] MEDS ORDERED: HYDR-971 PO (12:36)
[2016-08-20] MEDS ORDERED: LEVO100T PO (12:37)
--- NOTE | 2016-08-21 16:08 | PATHOLOGY ---
PATHOLOGY REPORT * * * * * * * * FINAL DIAGNOSIS: Thyroid gland, total thyroidectomy: - Follicular adenoma, forming a thinly encapsulated mass of the left thyroid lobe measuring 2.5 cm in greatest dimension. - Isthmic perithyroidal lymph node negative for tumor. COMMENT: Sections of the total thyroidectomy reveal a microfollicular adenoma of the left thyroid lobe. There is no evidence of malignancy. The case is also examined by Dr. Hidalgo, who concurs with the diagnosis. (JPM:csd; d/t: 08/21/2016) REPORT ELECTRONICALLY SIGNED BY: Joey Scott M.D. DATE/TIME: 08/21/2016 16:07 * * * * * * * * GROSS PATHOLOGY: Received in formalin labeled thyroid is a total thyroidectomy specimen which weighs 24 g and displays a short suture at the right superior aspect and a long suture on the left lobe. The right thyroid lobe measures 3.7 x 2.2 x 1.4 cm, the left thyroid lobe measures 3.9 x 2.5 x 1.8 cm, and the isthmus measures 1.6 x 1.5 x 0.6 cm. The outer surface of the specimen is townsend-brown and generally smooth. The right thyroid lobe is inked black, the left thyroid lobe is inked blue, and the isthmus is inked green. The right thyroid lobe is serially sectioned from superior to inferior to reveal a reddish brown spongy and unremarkable parenchyma. The right thyroid lobe is submitted from superior to inferior entirely in cassettes A1 through A6. The left thyroid lobe is serially sectioned from superior to inferior to reveal reddish brown spongy parenchyma as well as a townsend to brown, circumscribed nodule measuring approximately 2.5 x 2.0 x 1.4 cm. The nodule displays a centrally located cavity filled with reddish brown hemorrhagic material measuring approximately 2.0 x 0.8 x 0.6 cm. The nodule begins in the middle of the lobe and continues to the inferior pole of the lobe. The nodule grossly approaches but does not appear to involve the inked capsular surface of the specimen. Stamp Presser sections from the left thyroid lobe are submitted from superior to inferior in cassettes A7 through A12. The isthmus is serially sectioned from superior to inferior to reveal townsend-pink, grossly unremarkable parenchyma. The isthmus is submitted entirely from superior to inferior in cassettes A13 and A14. (AKA:MITCHELLM:csd; 08/20/2016) INITIAL CPT CODE(S): A; 55904 Professional services performed by [facility] at [address] [address] Technical services performed by [facility] at [address] [place] [address] [address], [place] [address]. SPECIMEN(S) RECEIVED: A.Thyroid CLINICAL HISTORY: Thyroid mass PATIENT: MACIAS IGNACIO Hipolito /AGE: 3 1960 (Age: 56) PATIENT #: [id number] ALT CASE #: SPECIMEN COLLECTION DATE: 08/19/2016 SPECIMEN RECEIVED DATE: 08/19/2016 [facility] - [address] [place] [address] - PHONE: [phone] * * * END OF REPORT * * *
== END 2016-08-20 12:55 | disposition home or self-care (01) ==
LOC: SURG 06:33 → 4 NORTH 10:03
PROVIDERS: ADMIT Surgery; ATTEND Surgery
DX: E04.1 Nontoxic single thyroid nodule (principal)
CPT/HCPCS: 60240; 88307; 96374; 96376; G0378; G0379; J0131; J0330; J1100; J1885; J2270; J2405; J2704; J3010

== ENCOUNTER 2016-09-03 14:46 | Inpatient (IN) | payer BC ==
[~2016-09-03] VITALS: Ht 177.8 cm; Wt 115.9 kg
[~2016-09-03 14:46] MED LIST changes: +ASPI-612 PO; -ASPI81TA9 PO; -DEXL60CA PO; +DEXL60CA2 PO; +HYDR-971 PO; +LEVO100T PO
[2016-09-03] MEDS ORDERED: IV NORMAL SALINE 1000ML BAG 1,000 ML IV SCH (15:36)
--- NOTE | 2016-09-03 15:43 | PHYS DOC ---
Past Medical History Past Medical History: High Cholesterol, Hypertension Additional Past Medical Histor: PEs Past Surgical History: Cholecystectomy, Other Additional Past Surgical Histo: ANKLE, GASTRIC SLEEVE Alcohol Use: None Drug Use: None Adult General Chief Complaint Chief Complaint: NAUSEA/VOMITING/DIARRHA HPI HPI Patient is a 56 year old male who presents with complaint of abdominal pain and vomiting. Patient states that his symptoms have been present for the past 3 days. Patient states that they have been coming and going during that time. Patient states he initially felt heartburn symptoms which then progressed to vomiting. Patient states that his pain is located along the middle portion of his abdomen just above his umbilicus and states that it hurts bilaterally. Patient states that he has had associated diarrhea and multiple episodes of vomiting. Patient states that he has had difficulty with oral intake due to his symptoms. Patient denies fevers but states that he has felt chills with his symptoms. Patient has history of gastric sleeve surgery and cholecystectomy. Patient just recently had his thyroid removed due to a suspicious thyroid nodule and is currently on Synthroid therapy which she just started within the past week. Patient rates his pain currently as 7 out of 10. Patient describes the pain as aching. Patient denies any localized pain within the abdomen and denies radiation of pain this time. Review of Systems Review of Systems Constitutional: Chills, denies fever [] Eyes: Denies change in visual acuity, redness, or eye pain [] HENT: Denies nasal congestion or sore throat [] Respiratory: Denies cough or shortness of breath [] Cardiovascular: Denies chest pain or edema [] GI: Abdominal pain, nausea, vomiting, diarrhea [] : Denies dysuria or hematuria [] Musculoskeletal: Denies back pain or joint pain [] Integument: Denies rash or skin lesions [] Neurologic: Denies headache, focal weakness or sensory changes [] Current Medications Current Medications Current Medications Medications (Trade) Dose Ordered Sig/Nicolas Start Time Stop Time Status Last Admin Dose Admin Acetaminophen (Tylenol) 650 mg PRN Q6HRS PRN 09/03/16 18:15 Acetaminophen/ Hydrocodone Bitart (Lortab 5/325) 1 tab PRN Q4HRS PRN 09/03/16 20:00 Atorvastatin Calcium (Lipitor) 40 mg QHS 09/03/16 21:00 Dicyclomine HCl (Bentyl) 10 mg 1X ONCE 09/03/16 15:45 09/03/16 15:46 DC 09/03/16 16:27 10 MG Famotidine (Pepcid) 20 mg 1X ONCE 09/03/16 15:45 09/03/16 15:46 DC 09/03/16 16:26 20 MG Fentanyl Citrate (Fentanyl 2ml Vial) 50 mcg PRN Q15MIN PRN 09/03/16 15:45 09/04/16 15:44 09/03/16 17:31 50 MCG Info (Do NOT chart on this entry -- for MONITORING) 1 each PRN DAILY PRN 09/03/16 17:00 09/05/16 16:59 Iohexol (Omnipaque 300 Mg/ml) 75 ml 1X ONCE 09/03/16 16:45 09/03/16 16:46 DC 09/03/16 16:59 75 ML Levothyroxine Sodium (Synthroid) 100 mcg DAILY 09/04/16 09:00 Montelukast Sodium (Singulair) 10 mg HS 09/03/16 21:00 Morphine Sulfate 4 mg PRN Q2HR PRN 09/03/16 18:00 09/04/16 17:59 Ondansetron HCl (Zofran) 4 mg PRN Q6HRS PRN 09/03/16 18:15 Pantoprazole Sodium (Protonix) 40 mg DAILY 09/04/16 09:00 Potassium Chloride (Klor-Con) 40 meq 1X ONCE 09/03/16 18:15 09/03/16 18:26 DC Ringer's Solution 1,000 ml @ 150 mls/hr Q6H40M 09/03/16 16:45 Rivaroxaban (Xarelto) 20 mg DAILY 09/04/16 09:00 Sertraline HCl (Zoloft) 50 mg DAILY 09/04/16 09:00 Sodium Chloride 1,000 ml @ 1,000 mls/hr Q1H 09/03/16 15:36 09/03/16 16:35 DC 09/03/16 16:27 1,000 MLS/HR Allergies Allergies Allergies Coded Allergies Type Severity Reaction Last Updated Verified No Known Drug Allergies 08/14/16 No Physical Exam Physical Exam Constitutional: Alert, obese, afebrile, appears in moderate discomfort. [] HENT: Normocephalic, atraumatic, bilateral external ears normal, oropharynx moist, no oral exudates, nose normal. [] Eyes: PERRLA, EOMI, conjunctiva normal, no discharge. [] Neck: Normal range of motion, no tenderness, supple, no stridor. [] Cardiovascular:Heart rate regular rhythm, no murmur [] Lungs & Thorax: Bilateral breath sounds clear to auscultation [] Abdomen: Bowel sounds normal, soft, left-sided periumbilical tenderness to palpation, no guarding or rebound tenderness, no masses, no pulsatile masses. [ ] Skin: Warm, dry, no erythema, no rash. [] Back: No tenderness, no CVA tenderness. [] Extremities: No tenderness, no cyanosis, no clubbing, ROM intact, no edema. [] Neurologic: Alert and oriented X 3, normal motor function, normal sensory function, no focal deficits noted. [] Current Patient Data Vital Signs Vital Signs Date Time Temp Pulse Resp B/P (MAP) Pulse Ox O2 Delivery O2 Flow Rate FiO2 09/03/16 17:31 Room Air 09/03/16 16:49 62 113/57 (75) 98 09/03/16 15:10 98.2 22 98.2 Lab Values Laboratory Tests Test 09/03/16 15:30 09/03/16 16:35 09/03/16 16:39 White Blood Count 16.2 x10^3/uL (4.0-11.0) H Red Blood Count 4.79 x10^6/uL (4.30-5.70) Hemoglobin 14.9 g/dL (13.0-17.5) Hematocrit 44.2 % (39.0-53.0) Mean Corpuscular Volume 92 fL (79-100) Mean Corpuscular Hemoglobin 31 pg (25-35) Mean Corpuscular Hemoglobin Concent 34 g/dL (31-37) Red Cell Distribution Width 13.5 % (11.5-14.5) Platelet Count 354 x10^3/uL (140-400) Neutrophils (%) (Auto) 85 % (31-73) H Lymphocytes (%) (Auto) 10 % (24-48) L Monocytes (%) (Auto) 5 % (0-9) Eosinophils (%) (Auto) 0 % (0-3) Basophils (%) (Auto) 1 % (0-3) Neutrophils # (Auto) 13.7 x10^3uL (1.8-7.7) H Lymphocytes # (Auto) 1.6 x10^3/uL (1.0-4.8) Monocytes # (Auto) 0.7 x10^3/uL (0.0-1.1) Eosinophils # (Auto) 0.0 x10^3/uL (0.0-0.7) Basophils # (Auto) 0.1 x10^3/uL (0.0-0.2) Segmented Neutrophils % 84 % (35-66) H Band Neutrophils % 1 % (0-9) Lymphocytes % 12 % (24-48) L Monocytes % 3 % (0-10) Toxic Granulation Mod Platelet Estimate Adequate (ADEQUATE) Sodium Level 138 mmol/L (136-145) Potassium Level 3.1 mmol/L (3.5-5.1) L Chloride Level 103 mmol/L (98-107) Carbon Dioxide Level 17 mmol/L (21-32) L Anion Gap 18 (6-14) H Blood Urea Nitrogen 19 mg/dL (8-26) Creatinine 1.4 mg/dL (0.7-1.3) H Estimated GFR (Cockcroft-Gault) 52.8 BUN/Creatinine Ratio 14 (6-20) Glucose Level 129 mg/dL (70-99) H Calcium Level 9.3 mg/dL (8.5-10.1) Total Bilirubin 1.1 mg/dL (0.2-1.0) H Aspartate Amino Transferase (AST) 17 U/L (15-37) Alanine Aminotransferase (ALT) 24 U/L (16-63) Alkaline Phosphatase 85 U/L (46-116) Total Protein 7.9 g/dL (6.4-8.2) Albumin 3.6 g/dL (3.4-5.0) Albumin/Globulin Ratio 0.8 (1.0-1.7) L Lipase 304 U/L (73-393) Urine Collection Type Unknown Urine Color Yellow Urine Clarity Clear Urine pH 6.0 Urine Specific [place] 1.015 Urine Protein Negative mg/dL (NEG-TRACE) Urine Glucose (UA) Negative mg/dL (NEG) Urine Ketones (Stick) Trace mg/dL (NEG) Urine Blood Negative (NEG) Urine Nitrite Negative (NEG) Urine Bilirubin Negative (NEG) Urine Urobilinogen Dipstick 0.2 mg/dL (0.2 mg/dL) Urine Leukocyte Esterase Trace (NEG) Urine RBC 0 /HPF (0-2) Urine WBC 1-4 /HPF (0-4) Urine Squamous Epithelial Cells None /LPF Urine Bacteria 0 /HPF (0-FEW) Urine Hyaline Casts Many /HPF Urine Mucus Marked /LPF Lactic Acid Level 1.7 mmol/L (0.4-2.0) Laboratory Tests 09/03/16 15:30 Laboratory Tests 09/03/16 15:30 EKG EKG Interpreted by me: Heart rate 96, sinus tachycardia, normal intervals, normal axis, no acute ST/T-wave abnormalities present [] Radiology/Procedures Radiology/Procedures [address] [id number] IMAGING REPORT Signed PATIENT: IGNACIO MACIAS ACCOUNT: [id number] : 1960 LOCATION: ER AGE: 56 SEX: M EXAM STATUS: REG ER ORD. PHYSICIAN: ALICE THOMPSON MD REASON: abdominal pain, vomiting PROCEDURE: ACUTE ABDOMEN SERIES Indication abdominal pain vomiting and diarrhea. Single view of the chest as well as flat and upright films of the abdomen were obtained. The chest is compared to an examination 05/15/2016. The heart and pulmonary vessels appear normal. The lungs are clear. There is no pleural fluid or pneumothorax. There is no free air. The abdominal gas pattern is normal. No organomegaly or abnormal calculi are seen. IMPRESSION: No acute or significant finding seen in the chest or abdomen on plain films DICTATED and SIGNED BY: FANNIE ESQUEDA MD DATE: 09/03/161625 CC: ALICE THOMPSON MD; YOHAN KIMBLE MD ~ [address] [id number] IMAGING REPORT Signed PATIENT: IGNACIO MACIAS ACCOUNT: [id number] : 1960 LOCATION: ER AGE: 56 SEX: M EXAM STATUS: REG ER ORD. PHYSICIAN: ALICE THOMPSON MD REASON: vomiting, abdominal pain PROCEDURE: CT ABD PELV W/ IV CONTRST ONLY CT abdomen and pelvis with contrast History: Mid abdominal pain and vomiting since Friday worse today Technique: After the administration of intravenous contrast, CT imaging was performed of the abdomen and pelvis. No oral contrast was given as per request. Multiplanar images are reviewed. Exposure: One or more of the following individualized dose reduction techniques were utilized for this examination: 1. Automated exposure control 2. Adjustment of the mA and/or kV according to patient size 3. Use of iterative reconstruction technique. Contrast: 60 cc Omnipaque 300 Comparison: 05/15/2016 Findings: There is no significant abnormality of the visualized lung bases. There are again postsurgical changes of the stomach. While intravenous contrast was injected, contrast enhancement is very poor. There is no obvious abnormality of the liver, spleen, pancreas, adrenal glands. Both kidneys enhance without hydronephrosis. There is a small likely cyst of the mid to inferior left kidney.There has been cholecystectomy. Accurate evaluation of bowel is limited without oral contrast. There is no significant inflammatory change adjacent to the bowel. There is no evidence of bowel obstruction, free fluid, or free air. Small caliber appendix is believed to be visualized. The bladder has a normal configuration. There is no significant lymphadenopathy. No significant osseous abnormality is identified. Impression: 1. No significant acute abnormality is identified. While intravenous contrast was administered, enhancement is very poor, uncertain if there was infiltration at injection site given lack of significant enhancement. Electronically signed by: Teresa Sun MD (09/03/2016 5:28 PM) DICTATED and SIGNED BY: TERESA SUN MD DATE: 09/03/16 1717 CC: ALICE THOMPSON MD; YOHAN KIMBLE MD ~ [] Course & Med Decision Making Course & Med Decision Making Pertinent Labs and Imaging studies reviewed. (See chart for details) Patient was given IV fentanyl, IV fluids, Pepcid, and Zofran. On reevaluation, patient states his symptoms remain unchanged and patient is unable to tolerate any by mouth intake at this time. Patient's workup at this time is nondiagnostic for the source of patient's pain, however patient does display metabolic derangements likely consistent with multiple episodes of vomiting and decreased oral intake. The patient thus will be admitted to the hospital for further symptomatic control. I spoke with Dr. Craven who accepted care patient in hospital. A consult was placed to Dr. Ramos of gastroenterology to follow with patient while in hospital. Dragon Disclaimer Dragon Disclaimer This electronic medical record was generated, in whole or in part, using a voice recognition dictation system. Departure Departure Impression: Primary Impression: Intractable abdominal pain Additional Impressions: Nausea and vomiting Dehydration Disposition: ADMITTED INPATIENT Admitting Physician: Sanna Craven Condition: GUARDED Referrals: YOHAN KIMBLE MD (PCP) Problem Qualifiers Additional Impressions: Nausea and vomiting Vomiting type: unspecified Vomiting Intractability: intractable Qualified Codes: R11.2 - Nausea with vomiting, unspecified ALICE THOMPSON MD September 03, 2016 15:43
[2016-09-03] MEDS ORDERED: DICYCLOMINE 20 MG/2 ML AMPUL. IM ONE (15:45)
[2016-09-03] MEDS ORDERED: FAMOTIDINE 20 MG/2 ML VIAL IVP ONE (15:45)
[2016-09-03] MEDS ORDERED: ONDANSETRON PF 4 MG/2 ML VIAL. IV ONE (15:45)
[2016-09-03 15:48] LABS: BASO # 0.1 x10^3/uL (0.0-0.2); BASO % 1 % (0-3); EOS % 0 % (0-3); HEMATOCRIT 44.2 % (39.0-53.0); HEMOGLOBIN 14.9 g/dL (13.0-17.5); LYMPH # 1.6 x10^3/uL (1.0-4.8); LYMPH % 10 % (24-48); MEAN CORPUSCULAR HEMOGLOBIN 31 pg (25-35); MEAN CORPUSCULAR HGB CONC 34 g/dL (31-37); MEAN CORPUSCULAR VOLUME 92 fL (79-100); MONO % 5 % (0-9); NEUT % 85 % (31-73); PLATELET COUNT 354 x10^3/uL (140-400); RED BLOOD COUNT 4.79 x10^6/uL (4.30-5.70); RED CELL DISTRIBUTION WIDTH 13.5 % (11.5-14.5); WHITE BLOOD COUNT 16.2 x10^3/uL (4.0-11.0)
[2016-09-03 16:01] LABS: CALCIUM 9.3 mg/dL (8.5-10.1); CREATININE 1.4 mg/dL (0.7-1.3); GFR 52.8; POTASSIUM 3.1 mmol/L (3.5-5.1)
[2016-09-03 16:06] LABS: ALBUMIN 3.6 g/dL (3.4-5.0); ALBUMIN/GLOBULIN RATIO 0.8 (1.0-1.7); TOTAL BILIRUBIN 1.1 mg/dL (0.2-1.0); TOTAL PROTEIN 7.9 g/dL (6.4-8.2)
[2016-09-03 16:22] LABS: PLT ESTIMATE ADEQUATE (ADEQUATE); TOXIC GRANULATION MOD
[2016-09-03] MEDS: fentaNYL PF VIAL 100 MCG/2 ML VIAL IV PRN ×3 (16:26→18:36)
--- NOTE | 2016-09-03 16:31 | RAD ---
Indication abdominal pain vomiting and diarrhea. Single view of the chest as well as flat and upright films of the abdomen were obtained. The chest is compared to an examination 05/15/2016. The heart and pulmonary vessels appear normal. The lungs are clear. There is no pleural fluid or pneumothorax. There is no free air. The abdominal gas pattern is normal. No organomegaly or abnormal calculi are seen. IMPRESSION: No acute or significant finding seen in the chest or abdomen on plain films
[2016-09-03 16:45] LABS: BILIRUBIN,URINE NEGATIVE (NEG); GLUCOSE,URINE NEGATIVE (NEG); NITRITE,URINE NEGATIVE (NEG); PROTEIN,URINE NEGATIVE (NEG-TRACE); UROBILINOGEN,URINE 0.2 mg/dL (0.2 mg/dL)
[2016-09-03] MEDS ORDERED: IOHEXOL 300 MG/ML 75 ML VIAL IV ONE (16:45)
--- NOTE | 2016-09-03 16:52 | EKG ---
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
[2016-09-03 16:54] LABS: BACTERIA,URINE 0 /HPF (0-FEW); RBC,URINE 0 /HPF (0-2)
[2016-09-03] MEDS ORDERED: CONTRAST GIVEN MC PRN (17:00)
--- NOTE | 2016-09-03 17:32 | RAD ---
CT abdomen and pelvis with contrast History: Mid abdominal pain and vomiting since Friday worse today Technique: After the administration of intravenous contrast, CT imaging was performed of the abdomen and pelvis. No oral contrast was given as per request. Multiplanar images are reviewed. Exposure: One or more of the following individualized dose reduction techniques were utilized for this examination: 1. Automated exposure control 2. Adjustment of the mA and/or kV according to patient size 3. Use of iterative reconstruction technique. Contrast: 60 cc Omnipaque 300 Comparison: 05/15/2016 Findings: There is no significant abnormality of the visualized lung bases. There are again postsurgical changes of the stomach. While intravenous contrast was injected, contrast enhancement is very poor. There is no obvious abnormality of the liver, spleen, pancreas, adrenal glands. Both kidneys enhance without hydronephrosis. There is a small likely cyst of the mid to inferior left kidney.There has been cholecystectomy. Accurate evaluation of bowel is limited without oral contrast. There is no significant inflammatory change adjacent to the bowel. There is no evidence of bowel obstruction, free fluid, or free air. Small caliber appendix is believed to be visualized. The bladder has a normal configuration. There is no significant lymphadenopathy. No significant osseous abnormality is identified. Impression: 1. No significant acute abnormality is identified. While intravenous contrast was administered, enhancement is very poor, uncertain if there was infiltration at injection site given lack of significant enhancement. Electronically signed by: John Larsen MD (09/03/2016 5:28 PM)
[2016-09-03] MEDS ORDERED: ACETAMINOPHEN 325 MG TABLET. PO PRN ×2 (18:00→18:15)
[2016-09-03] MEDS ORDERED: ONDANSETRON PF 4 MG/2 ML VIAL. IV PRN (18:00)
--- NOTE | 2016-09-03 18:07 | PDOC1 ---
History and Physical Date of Admission Date of Admission 09/03/16 Identification/Chief Complaint Chief Complaint abd pain Problems: Source Source: Chart review, Patient History of Present Illness History of Present Illness Patient is a 56 year old male who presents with complaint of abdominal pain and vomiting for 4 days. Pt was here 05/2016 for chest pain and lower abd pain, ct neg at that time , dced wo intervention. He got his thyroid removed 2 weeks ago and path adenoma wo malignancy. He started to feel N/V since friday, several times a day, yellow liquid, with lower middle abd pain, no radiation, /, slightly better with BM. He also has loose bm for 2 days, dark. Low urine output with low po intake. He felt some heart burn before N/V, had EGD done before showed esophageal ulcer but not taking meds regularly for GERD. has h/o cholecystectomy and gastric sleeve sx last year, last time seen sx was 07/2015, was told ok. no fever, chills, cough, sob. ct neg. Past Medical History Cardiovascular: HTN, Hyperlipidemia Pulmonary: Pulmonary embolus CENTRAL NERVOUS SYSTEM: Other GI: GERD Heme/Onc: No pertinent hx Hepatobiliary: Cholelithiasis Psych: No pertinent hx Rheumatologic: No pertinent hx Infectious disease: No pertinent hx Renal/: No pertinent hx Endocrine: Other Past Surgical History Past Surgical History gastric sleeve Past Surgical History: Cholecystectomy Family History Family History: Coronary Artery Disease Social History Smoke: No ALCOHOL: none Drugs: None Current Problem List Problem List Problems Medical Problems: (1) Dehydration Status: Acute (2) Intractable abdominal pain Status: Acute (3) Nausea and vomiting Status: Acute Current Medications Current Medications Current Medications Medications (Trade) Dose Ordered Sig/Nicolas Start Time Stop Time Status Last Admin Dose Admin Acetaminophen (Tylenol) 650 mg PRN Q4HRS PRN 09/03/16 18:00 09/04/16 17:59 UNV Dicyclomine HCl (Bentyl) 10 mg 1X ONCE 09/03/16 15:45 09/03/16 15:46 DC 09/03/16 16:27 10 MG Famotidine (Pepcid) 20 mg 1X ONCE 09/03/16 15:45 09/03/16 15:46 DC 09/03/16 16:26 20 MG Fentanyl Citrate (Fentanyl 2ml Vial) 50 mcg PRN Q15MIN PRN 09/03/16 15:45 09/04/16 15:44 09/03/16 17:31 50 MCG Info (Do NOT chart on this entry -- for MONITORING) 1 each PRN DAILY PRN 09/03/16 17:00 09/05/16 16:59 Iohexol (Omnipaque 300 Mg/ml) 75 ml 1X ONCE 09/03/16 16:45 09/03/16 16:46 DC 09/03/16 16:59 75 ML Morphine Sulfate 4 mg PRN Q2HR PRN 09/03/16 18:00 09/04/16 17:59 UNV Ondansetron HCl (Zofran) 4 mg PRN Q8HRS PRN 09/03/16 18:00 09/04/16 17:59 UNV Ringer's Solution 1,000 ml @ 150 mls/hr Q6H40M 09/03/16 16:45 Sodium Chloride 1,000 ml @ 1,000 mls/hr Q1H 09/03/16 15:36 09/03/16 16:35 DC 09/03/16 16:27 1,000 MLS/HR Allergies Allergies Allergies Coded Allergies Type Severity Reaction Last Updated Verified No Known Drug Allergies 08/14/16 No ROS Review of System CONSTITUTIONAL: No fever or chills EYES: No recent changes SKIN: No rash or itching CARDIOVASCULAR: No chest pain, syncope, palpitations, or edema RESPIRATORY: No SOB or cough GASTROINTESTINAL: No nausea, vomiting or abdominal pain NEUROLOGICAL: No headaches or weakness ENDOCRINE: No cold or heat intolerance GENITOURINARY: No urgency or frequency of urination MUSCULOSKELETAL: No back pain or joint pain LYMPHATICS: No enlarged lymph nodes PSYCHIATRIC: No anxiety or depression Physical Exam Physical Exam GEN.: No apparent distress. Alert and oriented. HEENT: Head is normocephalic, atraumatic NECK: Supple. LUNGS: Clear to auscultation. HEART: RRR, S1, S2 present. Peripheral pulses intact ABDOMEN: Soft, Positive bowel sounds. mild lower abd tenderness. EXTREMITIES: Without any cyanosis. NEUROLOGIC: Normal speech, normal tone PSYCHIATRIC: Normal affect, normal mood. SKIN: No ulcerations Vitals Vitals Vital Signs Date Time Temp Pulse Resp B/P (MAP) Pulse Ox O2 Delivery O2 Flow Rate FiO2 09/03/16 17:31 Room Air 09/03/16 16:49 62 113/57 (75) 98 09/03/16 15:10 98.2 22 98.2 Labs Labs Laboratory Tests Test 09/03/16 15:30 09/03/16 16:35 09/03/16 16:39 White Blood Count 16.2 x10^3/uL (4.0-11.0) Red Blood Count 4.79 x10^6/uL (4.30-5.70) Hemoglobin 14.9 g/dL (13.0-17.5) Hematocrit 44.2 % (39.0-53.0) Mean Corpuscular Volume 92 fL (79-100) Mean Corpuscular Hemoglobin 31 pg (25-35) Mean Corpuscular Hemoglobin Concent 34 g/dL (31-37) Red Cell Distribution Width 13.5 % (11.5-14.5) Platelet Count 354 x10^3/uL (140-400) Neutrophils (%) (Auto) 85 % (31-73) Lymphocytes (%) (Auto) 10 % (24-48) Monocytes (%) (Auto) 5 % (0-9) Eosinophils (%) (Auto) 0 % (0-3) Basophils (%) (Auto) 1 % (0-3) Neutrophils # (Auto) 13.7 x10^3uL (1.8-7.7) Lymphocytes # (Auto) 1.6 x10^3/uL (1.0-4.8) Monocytes # (Auto) 0.7 x10^3/uL (0.0-1.1) Eosinophils # (Auto) 0.0 x10^3/uL (0.0-0.7) Basophils # (Auto) 0.1 x10^3/uL (0.0-0.2) Segmented Neutrophils % 84 % (35-66) Band Neutrophils % 1 % (0-9) Lymphocytes % 12 % (24-48) Monocytes % 3 % (0-10) Toxic Granulation Mod Platelet Estimate Adequate (ADEQUATE) Sodium Level 138 mmol/L (136-145) Potassium Level 3.1 mmol/L (3.5-5.1) Chloride Level 103 mmol/L (98-107) Carbon Dioxide Level 17 mmol/L (21-32) Anion Gap 18 (6-14) Blood Urea Nitrogen 19 mg/dL (8-26) Creatinine 1.4 mg/dL (0.7-1.3) Estimated GFR (Cockcroft-Gault) 52.8 BUN/Creatinine Ratio 14 (6-20) Glucose Level 129 mg/dL (70-99) Calcium Level 9.3 mg/dL (8.5-10.1) Total Bilirubin 1.1 mg/dL (0.2-1.0) Aspartate Amino Transf (AST/SGOT) 17 U/L (15-37) Alanine Aminotransferase (ALT/SGPT) 24 U/L (16-63) Alkaline Phosphatase 85 U/L (46-116) Total Protein 7.9 g/dL (6.4-8.2) Albumin 3.6 g/dL (3.4-5.0) Albumin/Globulin Ratio 0.8 (1.0-1.7) Lipase 304 U/L (73-393) Urine Collection Type Unknown Urine Color Yellow Urine Clarity Clear Urine pH 6.0 Urine Specific [place] 1.015 Urine Protein Negative mg/dL (NEG-TRACE) Urine Glucose (UA) Negative mg/dL (NEG) Urine Ketones (Stick) Trace mg/dL (NEG) Urine Blood Negative (NEG) Urine Nitrite Negative (NEG) Urine Bilirubin Negative (NEG) Urine Urobilinogen Dipstick 0.2 mg/dL (0.2 mg/dL) Urine Leukocyte Esterase Trace (NEG) Urine RBC 0 /HPF (0-2) Urine WBC 1-4 /HPF (0-4) Urine Squamous Epithelial Cells None /LPF Urine Bacteria 0 /HPF (0-FEW) Urine Hyaline Casts Many /HPF Urine Mucus Marked /LPF Lactic Acid Level 1.7 mmol/L (0.4-2.0) Laboratory Tests Test 09/03/16 15:30 09/03/16 16:35 09/03/16 16:39 White Blood Count 16.2 x10^3/uL (4.0-11.0) Red Blood Count 4.79 x10^6/uL (4.30-5.70) Hemoglobin 14.9 g/dL (13.0-17.5) Hematocrit 44.2 % (39.0-53.0) Mean Corpuscular Volume 92 fL (79-100) Mean Corpuscular Hemoglobin 31 pg (25-35) Mean Corpuscular Hemoglobin Concent 34 g/dL (31-37) Red Cell Distribution Width 13.5 % (11.5-14.5) Platelet Count 354 x10^3/uL (140-400) Neutrophils (%) (Auto) 85 % (31-73) Lymphocytes (%) (Auto) 10 % (24-48) Monocytes (%) (Auto) 5 % (0-9) Eosinophils (%) (Auto) 0 % (0-3) Basophils (%) (Auto) 1 % (0-3) Neutrophils # (Auto) 13.7 x10^3uL (1.8-7.7) Lymphocytes # (Auto) 1.6 x10^3/uL (1.0-4.8) Monocytes # (Auto) 0.7 x10^3/uL (0.0-1.1) Eosinophils # (Auto) 0.0 x10^3/uL (0.0-0.7) Basophils # (Auto) 0.1 x10^3/uL (0.0-0.2) Segmented Neutrophils % 84 % (35-66) Band Neutrophils % 1 % (0-9) Lymphocytes % 12 % (24-48) Monocytes % 3 % (0-10) Toxic Granulation Mod Platelet Estimate Adequate (ADEQUATE) Sodium Level 138 mmol/L (136-145) Potassium Level 3.1 mmol/L (3.5-5.1) Chloride Level 103 mmol/L (98-107) Carbon Dioxide Level 17 mmol/L (21-32) Anion Gap 18 (6-14) Blood Urea Nitrogen 19 mg/dL (8-26) Creatinine 1.4 mg/dL (0.7-1.3) Estimated GFR (Cockcroft-Gault) 52.8 BUN/Creatinine Ratio 14 (6-20) Glucose Level 129 mg/dL (70-99) Calcium Level 9.3 mg/dL (8.5-10.1) Total Bilirubin 1.1 mg/dL (0.2-1.0) Aspartate Amino Transf (AST/SGOT) 17 U/L (15-37) Alanine Aminotransferase (ALT/SGPT) 24 U/L (16-63) Alkaline Phosphatase 85 U/L (46-116) Total Protein 7.9 g/dL (6.4-8.2) Albumin 3.6 g/dL (3.4-5.0) Albumin/Globulin Ratio 0.8 (1.0-1.7) Lipase 304 U/L (73-393) Urine Collection Type Unknown Urine Color Yellow Urine Clarity Clear Urine pH 6.0 Urine Specific [place] 1.015 Urine Protein Negative mg/dL (NEG-TRACE) Urine Glucose (UA) Negative mg/dL (NEG) Urine Ketones (Stick) Trace mg/dL (NEG) Urine Blood Negative (NEG) Urine Nitrite Negative (NEG) Urine Bilirubin Negative (NEG) Urine Urobilinogen Dipstick 0.2 mg/dL (0.2 mg/dL) Urine Leukocyte Esterase Trace (NEG) Urine RBC 0 /HPF (0-2) Urine WBC 1-4 /HPF (0-4) Urine Squamous Epithelial Cells None /LPF Urine Bacteria 0 /HPF (0-FEW) Urine Hyaline Casts Many /HPF Urine Mucus Marked /LPF Lactic Acid Level 1.7 mmol/L (0.4-2.0) VTE Prophylaxis Ordered VTE Prophylaxis Devices: Yes VTE Pharmacological Prophylaxi: No Assessment/Plan Assessment/Plan 1. N/V, abd pain, gastroenteritis likely 2. h/o gastric ulcer, V 3. htn 4. hld 5. post gastric sleeve gastrectomy for weight loss 6. h/o PE, still on xarelto 7 recent thyroidectomy for adenoma 8. depression 9. morbid obesity 10. leukocytosis, reactive 11. hypokalemia 12. MELISSA, vasomotor plan: gi consult pain control clear liquid ivf replete k cont home meds with xarelto gi ppx JUVENAL SMITH MD September 03, 2016 18:07
[2016-09-03] MEDS ORDERED: POTASSIUM CHLORIDE 20 MEQ TABLET.ER. PO ONE (18:15)
[2016-09-03] MEDS: IV RINGERS,LACTATED 1000ML 1,000 ML IV SCH (19:01)
[2016-09-03 19:30] VITALS: BP 119/68
[2016-09-03] MEDS: HYDROcodone/APAP 5/325MG 1 TAB TABLET PO PRN ×2 (19:51→23:45)
[2016-09-03] MEDS: ONDANSETRON PF 4 MG/2 ML VIAL. IV PRN (19:51)
[2016-09-03] MEDS: MORPHINE SULFATE 4 MG/ML DISP.SYRIN. IV PRN ×2 (20:10→22:29)
[2016-09-03] MEDS: ATORVASTATIN CALCIUM 40 MG TABLET. PO SCH (21:19)
[2016-09-03] MEDS: MONTELUKAST SODIUM 10 MG TABLET. PO SCH (21:19)
[2016-09-03 23:00] VITALS: BP 129/78
[2016-09-04] MEDS: IV RINGERS,LACTATED 1000ML 1,000 ML IV SCH ×4 (02:20→20:55)
[2016-09-04] MEDS: MORPHINE SULFATE 4 MG/ML DISP.SYRIN. IV PRN ×3 (02:20→09:20)
[2016-09-04 03:00] VITALS: BP 98/62
[2016-09-04 04:38] LABS: BASO # 0.1 x10^3/uL (0.0-0.2); BASO % 1 % (0-3); EOS % 1 % (0-3); HEMATOCRIT 39.5 % (39.0-53.0); HEMOGLOBIN 13.8 g/dL (13.0-17.5); LYMPH # 4.4 x10^3/uL (1.0-4.8); LYMPH % 28 % (24-48); MEAN CORPUSCULAR HEMOGLOBIN 32 pg (25-35); MEAN CORPUSCULAR HGB CONC 35 g/dL (31-37); MEAN CORPUSCULAR VOLUME 92 fL (79-100); MONO % 8 % (0-9); NEUT % 63 % (31-73); PLATELET COUNT 282 x10^3/uL (140-400); RED BLOOD COUNT 4.29 x10^6/uL (4.30-5.70)
[2016-09-04 04:51] LABS: CALCIUM 8.8 mg/dL (8.5-10.1); CREATININE 1.1 mg/dL (0.7-1.3); GFR 69.8; POTASSIUM 3.3 mmol/L (3.5-5.1)
[2016-09-04 07:00] VITALS: BP 110/73
[2016-09-04] MEDS ORDERED: POTASSIUM CHLORIDE 20 MEQ TABLET.ER. PO ONE (09:15)
[2016-09-04] MEDS: LEVOTHYROXINE 100 MCG TABLET PO SCH (09:17)
[2016-09-04] MEDS: PANTOPRAZOLE 40 MG TABLET.DR. PO SCH (09:17)
[2016-09-04] MEDS: RIVAROXABAN 10 MG TABLET. PO SCH (09:18)
[2016-09-04] MEDS: SERTRALINE 50 MG TABLET. PO SCH (09:18)
[2016-09-04] MEDS: ONDANSETRON PF 4 MG/2 ML VIAL. IV PRN ×3 (09:22→21:39)
--- NOTE | 2016-09-04 09:27 | PDOC ---
PROGRESS NOTES Chief Complaint Chief Complaint Abdominal pain Vomiting Diarrhea Dehydration GERD H/o gastric sleeve H/o cholecystectomy Recent thyroidectomy - on Synthroid Hypertension Hyperlipidemia H/o pulmonary embolism History of Present Illness History of Present Illness Patient was lying in bed in no acute distress Stated he no one's let him eat and asked for water Discussed care with nurse Vitals Vitals Vital Signs Date Time Temp Pulse Resp B/P (MAP) Pulse Ox O2 Delivery O2 Flow Rate FiO2 09/04/16 07:00 98.0 73 18 110/73 (85) 99 Room Air 98.0 Physical Exam General: Alert, Oriented X3, Cooperative, No acute distress Heart: Regular rate, Normal S1, Normal S2 Lungs: Clear, Other (no wheezing) Abdomen: Normal bowel sounds, Soft Extremities: No clubbing, No cyanosis Skin: No rashes, No breakdown Labs LABS Laboratory Tests Test 09/03/16 15:30 09/03/16 16:35 09/03/16 16:39 09/04/16 03:30 White Blood Count 16.2 x10^3/uL (4.0-11.0) 16.0 x10^3/uL (4.0-11.0) Red Blood Count 4.79 x10^6/uL (4.30-5.70) 4.29 x10^6/uL (4.30-5.70) Hemoglobin 14.9 g/dL (13.0-17.5) 13.8 g/dL (13.0-17.5) Hematocrit 44.2 % (39.0-53.0) 39.5 % (39.0-53.0) Mean Corpuscular Volume 92 fL (79-100) 92 fL (79-100) Mean Corpuscular Hemoglobin 31 pg (25-35) 32 pg (25-35) Mean Corpuscular Hemoglobin Concent 34 g/dL (31-37) 35 g/dL (31-37) Red Cell Distribution Width 13.5 % (11.5-14.5) 14.0 % (11.5-14.5) Platelet Count 354 x10^3/uL (140-400) 282 x10^3/uL (140-400) Neutrophils (%) (Auto) 85 % (31-73) 63 % (31-73) Lymphocytes (%) (Auto) 10 % (24-48) 28 % (24-48) Monocytes (%) (Auto) 5 % (0-9) 8 % (0-9) Eosinophils (%) (Auto) 0 % (0-3) 1 % (0-3) Basophils (%) (Auto) 1 % (0-3) 1 % (0-3) Neutrophils # (Auto) 13.7 x10^3uL (1.8-7.7) 10.1 x10^3uL (1.8-7.7) Lymphocytes # (Auto) 1.6 x10^3/uL (1.0-4.8) 4.4 x10^3/uL (1.0-4.8) Monocytes # (Auto) 0.7 x10^3/uL (0.0-1.1) 1.3 x10^3/uL (0.0-1.1) Eosinophils # (Auto) 0.0 x10^3/uL (0.0-0.7) 0.1 x10^3/uL (0.0-0.7) Basophils # (Auto) 0.1 x10^3/uL (0.0-0.2) 0.1 x10^3/uL (0.0-0.2) Segmented Neutrophils % 84 % (35-66) Band Neutrophils % 1 % (0-9) Lymphocytes % 12 % (24-48) Monocytes % 3 % (0-10) Toxic Granulation Mod Platelet Estimate Adequate (ADEQUATE) Sodium Level 138 mmol/L (136-145) 141 mmol/L (136-145) Potassium Level 3.1 mmol/L (3.5-5.1) 3.3 mmol/L (3.5-5.1) Chloride Level 103 mmol/L (98-107) 107 mmol/L (98-107) Carbon Dioxide Level 17 mmol/L (21-32) 18 mmol/L (21-32) Anion Gap 18 (6-14) 16 (6-14) Blood Urea Nitrogen 19 mg/dL (8-26) 14 mg/dL (8-26) Creatinine 1.4 mg/dL (0.7-1.3) 1.1 mg/dL (0.7-1.3) Estimated GFR (Cockcroft-Gault) 52.8 69.8 BUN/Creatinine Ratio 14 (6-20) Glucose Level 129 mg/dL (70-99) 98 mg/dL (70-99) Calcium Level 9.3 mg/dL (8.5-10.1) 8.8 mg/dL (8.5-10.1) Total Bilirubin 1.1 mg/dL (0.2-1.0) Aspartate Amino Transf (AST/SGOT) 17 U/L (15-37) Alanine Aminotransferase (ALT/SGPT) 24 U/L (16-63) Alkaline Phosphatase 85 U/L (46-116) Total Protein 7.9 g/dL (6.4-8.2) Albumin 3.6 g/dL (3.4-5.0) Albumin/Globulin Ratio 0.8 (1.0-1.7) Lipase 304 U/L (73-393) Urine Collection Type Unknown Urine Color Yellow Urine Clarity Clear Urine pH 6.0 Urine Specific [place] 1.015 Urine Protein Negative mg/dL (NEG-TRACE) Urine Glucose (UA) Negative mg/dL (NEG) Urine Ketones (Stick) Trace mg/dL (NEG) Urine Blood Negative (NEG) Urine Nitrite Negative (NEG) Urine Bilirubin Negative (NEG) Urine Urobilinogen Dipstick 0.2 mg/dL (0.2 mg/dL) Urine Leukocyte Esterase Trace (NEG) Urine RBC 0 /HPF (0-2) Urine WBC 1-4 /HPF (0-4) Urine Squamous Epithelial Cells None /LPF Urine Bacteria 0 /HPF (0-FEW) Urine Hyaline Casts Many /HPF Urine Mucus Marked /LPF Lactic Acid Level 1.7 mmol/L (0.4-2.0) Magnesium Level 1.8 mg/dL (1.8-2.4) Review of Systems Review of Systems General: denies weakness GI: denies N/C Assessment and Plan Assessmemt and Plan Problems Medical Problems: (1) Dehydration Status: Acute (2) Intractable abdominal pain Status: Acute (3) Nausea and vomiting Status: Acute Abdominal pain Vomiting Diarrhea Dehydration GERD H/o gastric sleeve H/o cholecystectomy Recent thyroidectomy - on Synthroid Hypertension Hyperlipidemia H/o pulmonary embolism Plan: -GI consulted -Switched to clear liquid diet -Potassium 40 mEq x1 -Levaquin 250mg x6 days for UTI -Blood culture pending -Continue home meds -Recheck labs in am -PT/OT as appropriate -Subspecialty input appreciated Problems: Comment Review of Relevant I have reviewed the following items robin (where applicable) has been applied. Labs Laboratory Tests Test 09/03/16 15:30 09/03/16 16:35 09/03/16 16:39 09/04/16 03:30 White Blood Count 16.2 x10^3/uL (4.0-11.0) 16.0 x10^3/uL (4.0-11.0) Red Blood Count 4.79 x10^6/uL (4.30-5.70) 4.29 x10^6/uL (4.30-5.70) Hemoglobin 14.9 g/dL (13.0-17.5) 13.8 g/dL (13.0-17.5) Hematocrit 44.2 % (39.0-53.0) 39.5 % (39.0-53.0) Mean Corpuscular Volume 92 fL (79-100) 92 fL (79-100) Mean Corpuscular Hemoglobin 31 pg (25-35) 32 pg (25-35) Mean Corpuscular Hemoglobin Concent 34 g/dL (31-37) 35 g/dL (31-37) Red Cell Distribution Width 13.5 % (11.5-14.5) 14.0 % (11.5-14.5) Platelet Count 354 x10^3/uL (140-400) 282 x10^3/uL (140-400) Neutrophils (%) (Auto) 85 % (31-73) 63 % (31-73) Lymphocytes (%) (Auto) 10 % (24-48) 28 % (24-48) Monocytes (%) (Auto) 5 % (0-9) 8 % (0-9) Eosinophils (%) (Auto) 0 % (0-3) 1 % (0-3) Basophils (%) (Auto) 1 % (0-3) 1 % (0-3) Neutrophils # (Auto) 13.7 x10^3uL (1.8-7.7) 10.1 x10^3uL (1.8-7.7) Lymphocytes # (Auto) 1.6 x10^3/uL (1.0-4.8) 4.4 x10^3/uL (1.0-4.8) Monocytes # (Auto) 0.7 x10^3/uL (0.0-1.1) 1.3 x10^3/uL (0.0-1.1) Eosinophils # (Auto) 0.0 x10^3/uL (0.0-0.7) 0.1 x10^3/uL (0.0-0.7) Basophils # (Auto) 0.1 x10^3/uL (0.0-0.2) 0.1 x10^3/uL (0.0-0.2) Segmented Neutrophils % 84 % (35-66) Band Neutrophils % 1 % (0-9) Lymphocytes % 12 % (24-48) Monocytes % 3 % (0-10) Toxic Granulation Mod Platelet Estimate Adequate (ADEQUATE) Sodium Level 138 mmol/L (136-145) 141 mmol/L (136-145) Potassium Level 3.1 mmol/L (3.5-5.1) 3.3 mmol/L (3.5-5.1) Chloride Level 103 mmol/L (98-107) 107 mmol/L (98-107) Carbon Dioxide Level 17 mmol/L (21-32) 18 mmol/L (21-32) Anion Gap 18 (6-14) 16 (6-14) Blood Urea Nitrogen 19 mg/dL (8-26) 14 mg/dL (8-26) Creatinine 1.4 mg/dL (0.7-1.3) 1.1 mg/dL (0.7-1.3) Estimated GFR (Cockcroft-Gault) 52.8 69.8 BUN/Creatinine Ratio 14 (6-20) Glucose Level 129 mg/dL (70-99) 98 mg/dL (70-99) Calcium Level 9.3 mg/dL (8.5-10.1) 8.8 mg/dL (8.5-10.1) Total Bilirubin 1.1 mg/dL (0.2-1.0) Aspartate Amino Transf (AST/SGOT) 17 U/L (15-37) Alanine Aminotransferase (ALT/SGPT) 24 U/L (16-63) Alkaline Phosphatase 85 U/L (46-116) Total Protein 7.9 g/dL (6.4-8.2) Albumin 3.6 g/dL (3.4-5.0) Albumin/Globulin Ratio 0.8 (1.0-1.7) Lipase 304 U/L (73-393) Urine Collection Type Unknown Urine Color Yellow Urine Clarity Clear Urine pH 6.0 Urine Specific [place] 1.015 Urine Protein Negative mg/dL (NEG-TRACE) Urine Glucose (UA) Negative mg/dL (NEG) Urine Ketones (Stick) Trace mg/dL (NEG) Urine Blood Negative (NEG) Urine Nitrite Negative (NEG) Urine Bilirubin Negative (NEG) Urine Urobilinogen Dipstick 0.2 mg/dL (0.2 mg/dL) Urine Leukocyte Esterase Trace (NEG) Urine RBC 0 /HPF (0-2) Urine WBC 1-4 /HPF (0-4) Urine Squamous Epithelial Cells None /LPF Urine Bacteria 0 /HPF (0-FEW) Urine Hyaline Casts Many /HPF Urine Mucus Marked /LPF Lactic Acid Level 1.7 mmol/L (0.4-2.0) Magnesium Level 1.8 mg/dL (1.8-2.4) Laboratory Tests Test 09/03/16 15:30 09/03/16 16:35 09/03/16 16:39 09/04/16 03:30 White Blood Count 16.2 x10^3/uL (4.0-11.0) 16.0 x10^3/uL (4.0-11.0) Red Blood Count 4.79 x10^6/uL (4.30-5.70) 4.29 x10^6/uL (4.30-5.70) Hemoglobin 14.9 g/dL (13.0-17.5) 13.8 g/dL (13.0-17.5) Hematocrit 44.2 % (39.0-53.0) 39.5 % (39.0-53.0) Mean Corpuscular Volume 92 fL (79-100) 92 fL (79-100) Mean Corpuscular Hemoglobin 31 pg (25-35) 32 pg (25-35) Mean Corpuscular Hemoglobin Concent 34 g/dL (31-37) 35 g/dL (31-37) Red Cell Distribution Width 13.5 % (11.5-14.5) 14.0 % (11.5-14.5) Platelet Count 354 x10^3/uL (140-400) 282 x10^3/uL (140-400) Neutrophils (%) (Auto) 85 % (31-73) 63 % (31-73) Lymphocytes (%) (Auto) 10 % (24-48) 28 % (24-48) Monocytes (%) (Auto) 5 % (0-9) 8 % (0-9) Eosinophils (%) (Auto) 0 % (0-3) 1 % (0-3) Basophils (%) (Auto) 1 % (0-3) 1 % (0-3) Neutrophils # (Auto) 13.7 x10^3uL (1.8-7.7) 10.1 x10^3uL (1.8-7.7) Lymphocytes # (Auto) 1.6 x10^3/uL (1.0-4.8) 4.4 x10^3/uL (1.0-4.8) Monocytes # (Auto) 0.7 x10^3/uL (0.0-1.1) 1.3 x10^3/uL (0.0-1.1) Eosinophils # (Auto) 0.0 x10^3/uL (0.0-0.7) 0.1 x10^3/uL (0.0-0.7) Basophils # (Auto) 0.1 x10^3/uL (0.0-0.2) 0.1 x10^3/uL (0.0-0.2) Segmented Neutrophils % 84 % (35-66) Band Neutrophils % 1 % (0-9) Lymphocytes % 12 % (24-48) Monocytes % 3 % (0-10) Toxic Granulation Mod Platelet Estimate Adequate (ADEQUATE) Sodium Level 138 mmol/L (136-145) 141 mmol/L (136-145) Potassium Level 3.1 mmol/L (3.5-5.1) 3.3 mmol/L (3.5-5.1) Chloride Level 103 mmol/L (98-107) 107 mmol/L (98-107) Carbon Dioxide Level 17 mmol/L (21-32) 18 mmol/L (21-32) Anion Gap 18 (6-14) 16 (6-14) Blood Urea Nitrogen 19 mg/dL (8-26) 14 mg/dL (8-26) Creatinine 1.4 mg/dL (0.7-1.3) 1.1 mg/dL (0.7-1.3) Estimated GFR (Cockcroft-Gault) 52.8 69.8 BUN/Creatinine Ratio 14 (6-20) Glucose Level 129 mg/dL (70-99) 98 mg/dL (70-99) Calcium Level 9.3 mg/dL (8.5-10.1) 8.8 mg/dL (8.5-10.1) Total Bilirubin 1.1 mg/dL (0.2-1.0) Aspartate Amino Transf (AST/SGOT) 17 U/L (15-37) Alanine Aminotransferase (ALT/SGPT) 24 U/L (16-63) Alkaline Phosphatase 85 U/L (46-116) Total Protein 7.9 g/dL (6.4-8.2) Albumin 3.6 g/dL (3.4-5.0) Albumin/Globulin Ratio 0.8 (1.0-1.7) Lipase 304 U/L (73-393) Urine Collection Type Unknown Urine Color Yellow Urine Clarity Clear Urine pH 6.0 Urine Specific [place] 1.015 Urine Protein Negative mg/dL (NEG-TRACE) Urine Glucose (UA) Negative mg/dL (NEG) Urine Ketones (Stick) Trace mg/dL (NEG) Urine Blood Negative (NEG) Urine Nitrite Negative (NEG) Urine Bilirubin Negative (NEG) Urine Urobilinogen Dipstick 0.2 mg/dL (0.2 mg/dL) Urine Leukocyte Esterase Trace (NEG) Urine RBC 0 /HPF (0-2) Urine WBC 1-4 /HPF (0-4) Urine Squamous Epithelial Cells None /LPF Urine Bacteria 0 /HPF (0-FEW) Urine Hyaline Casts Many /HPF Urine Mucus Marked /LPF Lactic Acid Level 1.7 mmol/L (0.4-2.0) Magnesium Level 1.8 mg/dL (1.8-2.4) Medications Current Medications Fentanyl Citrate (Fentanyl 2ml Vial) 50 mcg PRN Q15MIN PRN IV PAIN GREATER THAN 3/10 Last administered on 09/03/16t 18:36; Start 09/03/16 at 15:45; Stop at 15:44 Sodium Chloride 1,000 ml @ 1,000 mls/hr Q1H IV Last administered on 09/03/16 16:27; Start 09/03/16 at 15:36; Stop 09/03/16 at 16:35; Status DC Ondansetron HCl (Zofran) 4 mg 1X ONCE IV Last administered on 09/03/16 16:25 ; Start 09/03/16 at 15:45; Stop 09/03/16 at 15:46; Status DC Famotidine (Pepcid) 20 mg 1X ONCE IVP Last administered on 09/03/16 16:26; Start 09/03/16 at 15:45; Stop 09/03/16 at 15:46; Status DC Dicyclomine HCl (Bentyl) 10 mg 1X ONCE IM Last administered on 09/03/16 16:27 ; Start 09/03/16 at 15:45; Stop 09/03/16 at 15:46; Status DC Ringer's Solution 1,000 ml @ 150 mls/hr Q6H40M IV Last administered on 02:20; Start 09/03/16 at 16:45 Iohexol (Omnipaque 300 Mg/ml) 75 ml 1X ONCE IV Last administered on 09/03/16 16:59; Start 09/03/16 at 16:45; Stop 09/03/16 at 16:46; Status DC Info (Do NOT chart on this entry -- for MONITORING) 1 each PRN DAILY PRN MC SEE COMMENTS; Start 09/03/16 at 17:00; Stop 09/05/16 at 16:59 Ondansetron HCl (Zofran) 4 mg PRN Q8HRS PRN IV NAUSEA/VOMITING Last administered on 09/04/16 02:20; Start 09/03/16 at 18:00; Stop 09/04/16 at 17:59 Morphine Sulfate 4 mg PRN Q2HR PRN IV PAIN Last administered on 09/04/16 05:59 ; Start 09/03/16 at 18:00; Stop 09/04/16 at 17:59 Acetaminophen (Tylenol) 650 mg PRN Q4HRS PRN PO FEVER; Start 09/03/16 at 18:00 ; Stop 09/04/16 at 17:59 Atorvastatin Calcium (Lipitor) 40 mg QHS PO Last administered on 09/03/16 21: 19; Start 09/03/16 at 21:00 Acetaminophen/ Hydrocodone Bitart (Lortab 5/325) 1 tab PRN Q4HRS PRN PO PAIN Last administered on 09/03/16 23:45; Start 09/03/16 at 20:00 Levothyroxine Sodium (Synthroid) 100 mcg DAILY PO ; Start 09/04/16 at 09:00 Montelukast Sodium (Singulair) 10 mg HS PO Last administered on 09/03/16 21:19 ; Start 09/03/16 at 21:00 Rivaroxaban (Xarelto) 20 mg DAILY PO ; Start 09/04/16 at 09:00 Sertraline HCl (Zoloft) 50 mg DAILY PO ; Start 09/04/16 at 09:00 Pantoprazole Sodium (Protonix) 40 mg DAILY PO ; Start 09/04/16 at 09:00 Acetaminophen (Tylenol) 650 mg PRN Q6HRS PRN PO FEVER; Start 09/03/16 at 18:15 Ondansetron HCl (Zofran) 4 mg PRN Q6HRS PRN IV NAUSEA/VOMITING Last administered on 09/03/16 19:51; Start 09/03/16 at 18:15 Potassium Chloride (Klor-Con) 40 meq 1X ONCE PO Last administered on 19:00; Start 09/03/16 at 18:15; Stop 09/03/16 at 18:26; Status DC Active Scripts Active Atorvastatin Calcium 40 Mg Tablet 40 Mg PO QHS Reported Synthroid (Levothyroxine Sodium) 100 Mcg Tablet 1 Tab PO DAILY [place] 5-325 Tablet (Acetaminophen/Hydrocodone Bitart) 1 Each Tablet 1-2 Tab PO Q4HRS Singulair Tablet (Montelukast Sodium) 10 Mg Tablet 10 Mg PO HS Xarelto (Rivaroxaban) 10 Mg Tablet 20 Mg PO DAILY Zoloft (Sertraline Hcl) 50 Mg Tablet 50 Mg PO DAILY Vitals/I & O Vital Sign - Last 24 Hours 09/03/16 09/03/16 09/03/16 09/03/16 15:10 15:30 16:00 16:26 Temp 98.2 98.2 Pulse 52 58 90 Resp 22 B/P (MAP) 125/80 (95) 127/79 (95) 130/60 (83) Pulse Ox 98 98 98 O2 Delivery Room Air Room Air Room Air 09/03/16 09/03/16 09/03/16 09/03/16 16:49 17:31 18:25 18:36 Pulse 62 38 B/P (MAP) 113/57 (75) 120/66 (84) Pulse Ox 98 O2 Delivery Room Air Room Air 09/03/16 09/03/16 09/03/16 09/03/16 18:55 19:14 19:30 19:51 Temp 98.2 98.2 Pulse 46 100 Resp 18 18 B/P (MAP) 126/58 (80) 119/68 (85) Pulse Ox 98 97 98 O2 Delivery Room Air Room Air Room Air 09/03/16 09/03/16 09/03/16 09/03/16 20:10 21:18 22:08 22:29 Resp 18 18 18 Pulse Ox 98 98 O2 Delivery Room Air Room Air Room Air 09/03/16 09/03/16 09/04/16 09/04/16 23:00 23:45 02:17 02:20 Temp 98.1 98.1 Pulse 89 Resp 18 18 20 18 B/P (MAP) 129/78 (95) Pulse Ox 98 98 98 O2 Delivery Room Air Room Air Room Air Room Air 09/04/16 09/04/16 09/04/16 09/04/16 03:00 03:11 05:59 07:00 Temp 98.1 98.0 98.1 98.0 Pulse 76 73 Resp 18 18 18 B/P (MAP) 98/62 (74) 110/73 (85) Pulse Ox 96 96 96 99 O2 Delivery Room Air Room Air Room Air Room Air Intake and Output 09/03/16 09/03/16 09/04/16 15:00 23:00 07:00 Intake Total 1000 ml Balance 1000 ml KIRSTY HASTINGS III DO September 04, 2016 09:27
--- NOTE | 2016-09-04 09:30 | PDOC2 ---
GI CONSULT Reason For Consult: Abd pain, vomiting HPI: HPI: 56 y/o male admitted through the ER, previously evaluated by Dr. Wilson in 2016 for abd pain, n/v, and heartburn. Symptoms improved and were thought to be viral in origin. On this occasion, he reports onset of heartburn and n/v on Friday for which he took Pepto-Bismol. Denies precipitating events. Symptoms continued through Friday w/ mostly heartburn and then worsened on Friday w/ more nausea and retching. Had a few loose stools and some band-like pain across the mid abdomen - neither of which have recurred. Had not been taking anything for GERD/heartburn previously because he hasn't had problems w/ this since gastric sleeve in 01/2016 (Dr. Cox). Prior to that had been on Dexilant and omeprazole. Previous pathology reviewed from EGD and colonoscopy (2008) showed chronic gastritis and possible lymphocytic colitis. Denies hematemesis, hematochezia, melena. Currently feeling a little better, trying clears. PMH: PMH: PE, HTN, HLD, GERD, arthritis, gout, ROYAL, depression, gastric sleeve, cholecystectomy, vasectomy, ankle surgeries, thyroidectomy (path showed adenoma) FH: Family History: CAD Social History: Smoke: No ALCOHOL: none Drugs: None ROS: GEN: Denies fevers, chills, sweats HEENT: Denies blurred vision, sore throat CV: Denies chest pain RESP: Denies shortness of air, cough GI: Per HPI : Denies hematuria, dysuria ENDO: Denies weight changes NEURO: Denies confusion, dizziness MSK: Denies weakness, joint pain/swelling SKIN: Denies jaundice, pruritus Vitals: Vitals: Vital Signs Date Time Temp Pulse Resp B/P (MAP) Pulse Ox O2 Delivery O2 Flow Rate FiO2 09/04/16 07:00 98.0 73 18 110/73 (85) 99 Room Air 98.0 Labs: Labs: Laboratory Tests Test 09/03/16 15:30 09/03/16 16:35 09/03/16 16:39 09/04/16 03:30 White Blood Count 16.2 x10^3/uL (4.0-11.0) 16.0 x10^3/uL (4.0-11.0) Red Blood Count 4.79 x10^6/uL (4.30-5.70) 4.29 x10^6/uL (4.30-5.70) Hemoglobin 14.9 g/dL (13.0-17.5) 13.8 g/dL (13.0-17.5) Hematocrit 44.2 % (39.0-53.0) 39.5 % (39.0-53.0) Mean Corpuscular Volume 92 fL (79-100) 92 fL (79-100) Mean Corpuscular Hemoglobin 31 pg (25-35) 32 pg (25-35) Mean Corpuscular Hemoglobin Concent 34 g/dL (31-37) 35 g/dL (31-37) Red Cell Distribution Width 13.5 % (11.5-14.5) 14.0 % (11.5-14.5) Platelet Count 354 x10^3/uL (140-400) 282 x10^3/uL (140-400) Neutrophils (%) (Auto) 85 % (31-73) 63 % (31-73) Lymphocytes (%) (Auto) 10 % (24-48) 28 % (24-48) Monocytes (%) (Auto) 5 % (0-9) 8 % (0-9) Eosinophils (%) (Auto) 0 % (0-3) 1 % (0-3) Basophils (%) (Auto) 1 % (0-3) 1 % (0-3) Neutrophils # (Auto) 13.7 x10^3uL (1.8-7.7) 10.1 x10^3uL (1.8-7.7) Lymphocytes # (Auto) 1.6 x10^3/uL (1.0-4.8) 4.4 x10^3/uL (1.0-4.8) Monocytes # (Auto) 0.7 x10^3/uL (0.0-1.1) 1.3 x10^3/uL (0.0-1.1) Eosinophils # (Auto) 0.0 x10^3/uL (0.0-0.7) 0.1 x10^3/uL (0.0-0.7) Basophils # (Auto) 0.1 x10^3/uL (0.0-0.2) 0.1 x10^3/uL (0.0-0.2) Segmented Neutrophils % 84 % (35-66) Band Neutrophils % 1 % (0-9) Lymphocytes % 12 % (24-48) Monocytes % 3 % (0-10) Toxic Granulation Mod Platelet Estimate Adequate (ADEQUATE) Sodium Level 138 mmol/L (136-145) 141 mmol/L (136-145) Potassium Level 3.1 mmol/L (3.5-5.1) 3.3 mmol/L (3.5-5.1) Chloride Level 103 mmol/L (98-107) 107 mmol/L (98-107) Carbon Dioxide Level 17 mmol/L (21-32) 18 mmol/L (21-32) Anion Gap 18 (6-14) 16 (6-14) Blood Urea Nitrogen 19 mg/dL (8-26) 14 mg/dL (8-26) Creatinine 1.4 mg/dL (0.7-1.3) 1.1 mg/dL (0.7-1.3) Estimated GFR (Cockcroft-Gault) 52.8 69.8 BUN/Creatinine Ratio 14 (6-20) Glucose Level 129 mg/dL (70-99) 98 mg/dL (70-99) Calcium Level 9.3 mg/dL (8.5-10.1) 8.8 mg/dL (8.5-10.1) Total Bilirubin 1.1 mg/dL (0.2-1.0) Aspartate Amino Transf (AST/SGOT) 17 U/L (15-37) Alanine Aminotransferase (ALT/SGPT) 24 U/L (16-63) Alkaline Phosphatase 85 U/L (46-116) Total Protein 7.9 g/dL (6.4-8.2) Albumin 3.6 g/dL (3.4-5.0) Albumin/Globulin Ratio 0.8 (1.0-1.7) Lipase 304 U/L (73-393) Urine Collection Type Unknown Urine Color Yellow Urine Clarity Clear Urine pH 6.0 Urine Specific [place] 1.015 Urine Protein Negative mg/dL (NEG-TRACE) Urine Glucose (UA) Negative mg/dL (NEG) Urine Ketones (Stick) Trace mg/dL (NEG) Urine Blood Negative (NEG) Urine Nitrite Negative (NEG) Urine Bilirubin Negative (NEG) Urine Urobilinogen Dipstick 0.2 mg/dL (0.2 mg/dL) Urine Leukocyte Esterase Trace (NEG) Urine RBC 0 /HPF (0-2) Urine WBC 1-4 /HPF (0-4) Urine Squamous Epithelial Cells None /LPF Urine Bacteria 0 /HPF (0-FEW) Urine Hyaline Casts Many /HPF Urine Mucus Marked /LPF Lactic Acid Level 1.7 mmol/L (0.4-2.0) Magnesium Level 1.8 mg/dL (1.8-2.4) Allergies: Coded Allergies: No Known Drug Allergies (Unverified , 08/14/16) Medications: Current Medications Medications (Trade) Dose Ordered Sig/Nicolas Route PRN Reason Start Time Stop Time Status Last Admin Dose Admin Fentanyl Citrate (Fentanyl 2ml Vial) 50 mcg PRN Q15MIN PRN IV PAIN GREATER THAN 3/10 09/03/16 15:45 09/04/16 15:44 09/03/16 18:36 Sodium Chloride 1,000 ml @ 1,000 mls/hr Q1H IV 09/03/16 15:36 09/03/16 16:35 DC 09/03/16 16:27 Ondansetron HCl (Zofran) 4 mg 1X ONCE IV 09/03/16 15:45 09/03/16 15:46 DC 09/03/16 16:25 Famotidine (Pepcid) 20 mg 1X ONCE IVP 09/03/16 15:45 09/03/16 15:46 DC 09/03/16 16:26 Dicyclomine HCl (Bentyl) 10 mg 1X ONCE IM 09/03/16 15:45 09/03/16 15:46 DC 09/03/16 16:27 Ringer's Solution 1,000 ml @ 150 mls/hr Q6H40M IV 09/03/16 16:45 09/04/16 02:20 Iohexol (Omnipaque 300 Mg/ml) 75 ml 1X ONCE IV 09/03/16 16:45 09/03/16 16:46 DC 09/03/16 16:59 Ondansetron HCl (Zofran) 4 mg PRN Q8HRS PRN IV NAUSEA/VOMITING 09/03/16 18:00 09/04/16 17:59 09/04/16 02:20 Morphine Sulfate 4 mg PRN Q2HR PRN IV PAIN 09/03/16 18:00 09/04/16 17:59 09/04/16 05:59 Atorvastatin Calcium (Lipitor) 40 mg QHS PO 09/03/16 21:00 09/03/16 21:19 Acetaminophen/ Hydrocodone Bitart (Lortab 5/325) 1 tab PRN Q4HRS PRN PO PAIN 09/03/16 20:00 09/03/16 23:45 Montelukast Sodium (Singulair) 10 mg HS PO 09/03/16 21:00 09/03/16 21:19 Ondansetron HCl (Zofran) 4 mg PRN Q6HRS PRN IV NAUSEA/VOMITING 09/03/16 18:15 09/03/16 19:51 Potassium Chloride (Klor-Con) 40 meq 1X ONCE PO 09/03/16 18:15 09/03/16 18:26 DC 09/03/16 19:00 Imaging: Imaging: Acute Abd Series IMPRESSION: No acute or significant finding seen in the chest or abdomen on plain films. CT A/P w/ IV contrast Impression: 1. No significant acute abnormality is identified. While intravenous contrast was administered, enhancement is very poor, uncertain if there was infiltration at injection site given lack of significant enhancement. PE: GEN: NAD HEENT: Atraumatic, PERRL LUNGS: CTAB HEART: RRR ABD: NABS, S/ND/NT EXTREMITY: No edema SKIN: No rashes, no jaundice NEURO/PSYCH: A & O 3 A/P: A/P: Heartburn, n/v, abd pain - improving -onset Friday, first w/ heartburn -previously not taking anything for heartburn ---> discussed continuing PPI at last admission for similar symptoms -has had previous EGDs, chronic gastritis on path -no NSAIDs H/o gastric sleeve CRC screen -previous colonoscopy in 2008 -- Feeling some better this morning, trying clears. Has been started on PPI here, would continue this. JENNIFER WHITE September 04, 2016 09:30
[2016-09-04 11:00] VITALS: BP 120/69
[2016-09-04] MEDS: HYDROcodone/APAP 5/325MG 1 TAB TABLET PO PRN ×2 (13:43→20:57)
[2016-09-04 15:00] VITALS: BP 104/59
[2016-09-04 19:00] VITALS: BP 132/82
[2016-09-04] MEDS: MONTELUKAST SODIUM 10 MG TABLET. PO SCH (20:56)
[2016-09-04] MEDS: ATORVASTATIN CALCIUM 40 MG TABLET. PO SCH (20:56)
[2016-09-04 23:00] VITALS: BP 115/66
[2016-09-05] MEDS: IV RINGERS,LACTATED 1000ML 1,000 ML IV SCH ×3 (02:05→14:59)
[2016-09-05] MEDS: HYDROcodone/APAP 5/325MG 1 TAB TABLET PO PRN ×2 (02:36→10:02)
[2016-09-05] MEDS: ONDANSETRON PF 4 MG/2 ML VIAL. IV PRN ×3 (05:14→21:28)
[2016-09-05 06:07] LABS: BASO # 0.1 x10^3/uL (0.0-0.2); BASO % 1 % (0-3); EOS % 2 % (0-3); HEMATOCRIT 39.6 % (39.0-53.0); HEMOGLOBIN 13.8 g/dL (13.0-17.5); LYMPH # 2.6 x10^3/uL (1.0-4.8); LYMPH % 22 % (24-48); MEAN CORPUSCULAR HEMOGLOBIN 32 pg (25-35); MEAN CORPUSCULAR HGB CONC 35 g/dL (31-37); MEAN CORPUSCULAR VOLUME 91 fL (79-100); MONO % 8 % (0-9); NEUT % 68 % (31-73); PLATELET COUNT 279 x10^3/uL (140-400); RED BLOOD COUNT 4.36 x10^6/uL (4.30-5.70); RED CELL DISTRIBUTION WIDTH 13.6 % (11.5-14.5); WHITE BLOOD COUNT 12.2 x10^3/uL (4.0-11.0)
[2016-09-05 06:26] LABS: CALCIUM 9.2 mg/dL (8.5-10.1); GFR 77.9; POTASSIUM 3.3 mmol/L (3.5-5.1)
[2016-09-05 07:36] VITALS: BP 127/81
[2016-09-05] MEDS: MORPHINE SULFATE 4 MG/ML DISP.SYRIN. IV PRN ×5 (08:59→21:29)
[2016-09-05] MEDS: PANTOPRAZOLE 40 MG TABLET.DR. PO SCH (10:00)
[2016-09-05] MEDS: LEVOTHYROXINE 100 MCG TABLET PO SCH (10:00)
[2016-09-05] MEDS: RIVAROXABAN 10 MG TABLET. PO SCH (10:00)
[2016-09-05] MEDS: SERTRALINE 50 MG TABLET. PO SCH (10:01)
[2016-09-05 10:45] VITALS: BP 132/85
[2016-09-05] MEDS ORDERED: ANTI-COAG MONITOR BY PHARMACY. MC PRN (12:15)
--- NOTE | 2016-09-05 12:21 | PDOC ---
PROGRESS NOTES Chief Complaint Chief Complaint Abdominal pain, AGE? neg work up Vomiting Diarrhea Dehydration GERD H/o gastric sleeve H/o cholecystectomy Recent thyroidectomy - on Synthroid Hypertension Hyperlipidemia H/o pulmonary embolism History of Present Illness History of Present Illness Crappy today Needing to reinstate Morphine 4 mgs iV q2 BUcket at bedside - some "throw up", mostly saliva LAbs: K 3.3 despite replacement yesterday NOt interested in food ADAt ordered PLAN: Replace 60 PO x 1 Current IVF to consume Recheck k and mag zara AM ADAT Percocet and zofran ODT Hopefully home zara when feeling better Vitals Vitals Vital Signs Date Time Temp Pulse Resp B/P (MAP) Pulse Ox O2 Delivery O2 Flow Rate FiO2 09/05/16 11:34 20 93 Room Air 09/05/16 10:45 97.9 90 132/85 (101) 97.9 Physical Exam General: Alert, Oriented X3, Cooperative, No acute distress Heart: Regular rate, Normal S1, Normal S2 Lungs: Clear, Other (no wheezing) Abdomen: Normal bowel sounds, Soft Extremities: No clubbing, No cyanosis Skin: No rashes, No breakdown Labs LABS Laboratory Tests Test 09/05/16 05:00 White Blood Count 12.2 x10^3/uL (4.0-11.0) Red Blood Count 4.36 x10^6/uL (4.30-5.70) Hemoglobin 13.8 g/dL (13.0-17.5) Hematocrit 39.6 % (39.0-53.0) Mean Corpuscular Volume 91 fL (79-100) Mean Corpuscular Hemoglobin 32 pg (25-35) Mean Corpuscular Hemoglobin Concent 35 g/dL (31-37) Red Cell Distribution Width 13.6 % (11.5-14.5) Platelet Count 279 x10^3/uL (140-400) Neutrophils (%) (Auto) 68 % (31-73) Lymphocytes (%) (Auto) 22 % (24-48) Monocytes (%) (Auto) 8 % (0-9) Eosinophils (%) (Auto) 2 % (0-3) Basophils (%) (Auto) 1 % (0-3) Neutrophils # (Auto) 8.3 x10^3uL (1.8-7.7) Lymphocytes # (Auto) 2.6 x10^3/uL (1.0-4.8) Monocytes # (Auto) 1.0 x10^3/uL (0.0-1.1) Eosinophils # (Auto) 0.2 x10^3/uL (0.0-0.7) Basophils # (Auto) 0.1 x10^3/uL (0.0-0.2) Sodium Level 139 mmol/L (136-145) Potassium Level 3.3 mmol/L (3.5-5.1) Chloride Level 104 mmol/L (98-107) Carbon Dioxide Level 21 mmol/L (21-32) Anion Gap 14 (6-14) Blood Urea Nitrogen 12 mg/dL (8-26) Creatinine 1.0 mg/dL (0.7-1.3) Estimated GFR (Cockcroft-Gault) 77.9 Glucose Level 88 mg/dL (70-99) Calcium Level 9.2 mg/dL (8.5-10.1) Review of Systems Review of Systems emesis, abd pain, nausea, no cp, soa Assessment and Plan Assessmemt and Plan Problems Medical Problems: (1) Dehydration Status: Acute (2) Intractable abdominal pain Status: Acute (3) Nausea and vomiting Status: Acute Problems: Comment Review of Relevant I have reviewed the following items robin (where applicable) has been applied. Labs Laboratory Tests Test 09/03/16 15:30 09/03/16 16:35 09/03/16 16:39 09/04/16 03:30 White Blood Count 16.2 x10^3/uL (4.0-11.0) 16.0 x10^3/uL (4.0-11.0) Red Blood Count 4.79 x10^6/uL (4.30-5.70) 4.29 x10^6/uL (4.30-5.70) Hemoglobin 14.9 g/dL (13.0-17.5) 13.8 g/dL (13.0-17.5) Hematocrit 44.2 % (39.0-53.0) 39.5 % (39.0-53.0) Mean Corpuscular Volume 92 fL (79-100) 92 fL (79-100) Mean Corpuscular Hemoglobin 31 pg (25-35) 32 pg (25-35) Mean Corpuscular Hemoglobin Concent 34 g/dL (31-37) 35 g/dL (31-37) Red Cell Distribution Width 13.5 % (11.5-14.5) 14.0 % (11.5-14.5) Platelet Count 354 x10^3/uL (140-400) 282 x10^3/uL (140-400) Neutrophils (%) (Auto) 85 % (31-73) 63 % (31-73) Lymphocytes (%) (Auto) 10 % (24-48) 28 % (24-48) Monocytes (%) (Auto) 5 % (0-9) 8 % (0-9) Eosinophils (%) (Auto) 0 % (0-3) 1 % (0-3) Basophils (%) (Auto) 1 % (0-3) 1 % (0-3) Neutrophils # (Auto) 13.7 x10^3uL (1.8-7.7) 10.1 x10^3uL (1.8-7.7) Lymphocytes # (Auto) 1.6 x10^3/uL (1.0-4.8) 4.4 x10^3/uL (1.0-4.8) Monocytes # (Auto) 0.7 x10^3/uL (0.0-1.1) 1.3 x10^3/uL (0.0-1.1) Eosinophils # (Auto) 0.0 x10^3/uL (0.0-0.7) 0.1 x10^3/uL (0.0-0.7) Basophils # (Auto) 0.1 x10^3/uL (0.0-0.2) 0.1 x10^3/uL (0.0-0.2) Segmented Neutrophils % 84 % (35-66) Band Neutrophils % 1 % (0-9) Lymphocytes % 12 % (24-48) Monocytes % 3 % (0-10) Toxic Granulation Mod Platelet Estimate Adequate (ADEQUATE) Sodium Level 138 mmol/L (136-145) 141 mmol/L (136-145) Potassium Level 3.1 mmol/L (3.5-5.1) 3.3 mmol/L (3.5-5.1) Chloride Level 103 mmol/L (98-107) 107 mmol/L (98-107) Carbon Dioxide Level 17 mmol/L (21-32) 18 mmol/L (21-32) Anion Gap 18 (6-14) 16 (6-14) Blood Urea Nitrogen 19 mg/dL (8-26) 14 mg/dL (8-26) Creatinine 1.4 mg/dL (0.7-1.3) 1.1 mg/dL (0.7-1.3) Estimated GFR (Cockcroft-Gault) 52.8 69.8 BUN/Creatinine Ratio 14 (6-20) Glucose Level 129 mg/dL (70-99) 98 mg/dL (70-99) Calcium Level 9.3 mg/dL (8.5-10.1) 8.8 mg/dL (8.5-10.1) Total Bilirubin 1.1 mg/dL (0.2-1.0) Aspartate Amino Transf (AST/SGOT) 17 U/L (15-37) Alanine Aminotransferase (ALT/SGPT) 24 U/L (16-63) Alkaline Phosphatase 85 U/L (46-116) Total Protein 7.9 g/dL (6.4-8.2) Albumin 3.6 g/dL (3.4-5.0) Albumin/Globulin Ratio 0.8 (1.0-1.7) Lipase 304 U/L (73-393) Urine Collection Type Unknown Urine Color Yellow Urine Clarity Clear Urine pH 6.0 Urine Specific [place] 1.015 Urine Protein Negative mg/dL (NEG-TRACE) Urine Glucose (UA) Negative mg/dL (NEG) Urine Ketones (Stick) Trace mg/dL (NEG) Urine Blood Negative (NEG) Urine Nitrite Negative (NEG) Urine Bilirubin Negative (NEG) Urine Urobilinogen Dipstick 0.2 mg/dL (0.2 mg/dL) Urine Leukocyte Esterase Trace (NEG) Urine RBC 0 /HPF (0-2) Urine WBC 1-4 /HPF (0-4) Urine Squamous Epithelial Cells None /LPF Urine Bacteria 0 /HPF (0-FEW) Urine Hyaline Casts Many /HPF Urine Mucus Marked /LPF Lactic Acid Level 1.7 mmol/L (0.4-2.0) Magnesium Level 1.8 mg/dL (1.8-2.4) Test 09/05/16 05:00 White Blood Count 12.2 x10^3/uL (4.0-11.0) Red Blood Count 4.36 x10^6/uL (4.30-5.70) Hemoglobin 13.8 g/dL (13.0-17.5) Hematocrit 39.6 % (39.0-53.0) Mean Corpuscular Volume 91 fL (79-100) Mean Corpuscular Hemoglobin 32 pg (25-35) Mean Corpuscular Hemoglobin Concent 35 g/dL (31-37) Red Cell Distribution Width 13.6 % (11.5-14.5) Platelet Count 279 x10^3/uL (140-400) Neutrophils (%) (Auto) 68 % (31-73) Lymphocytes (%) (Auto) 22 % (24-48) Monocytes (%) (Auto) 8 % (0-9) Eosinophils (%) (Auto) 2 % (0-3) Basophils (%) (Auto) 1 % (0-3) Neutrophils # (Auto) 8.3 x10^3uL (1.8-7.7) Lymphocytes # (Auto) 2.6 x10^3/uL (1.0-4.8) Monocytes # (Auto) 1.0 x10^3/uL (0.0-1.1) Eosinophils # (Auto) 0.2 x10^3/uL (0.0-0.7) Basophils # (Auto) 0.1 x10^3/uL (0.0-0.2) Sodium Level 139 mmol/L (136-145) Potassium Level 3.3 mmol/L (3.5-5.1) Chloride Level 104 mmol/L (98-107) Carbon Dioxide Level 21 mmol/L (21-32) Anion Gap 14 (6-14) Blood Urea Nitrogen 12 mg/dL (8-26) Creatinine 1.0 mg/dL (0.7-1.3) Estimated GFR (Cockcroft-Gault) 77.9 Glucose Level 88 mg/dL (70-99) Calcium Level 9.2 mg/dL (8.5-10.1) Laboratory Tests Test 09/05/16 05:00 White Blood Count 12.2 x10^3/uL (4.0-11.0) Red Blood Count 4.36 x10^6/uL (4.30-5.70) Hemoglobin 13.8 g/dL (13.0-17.5) Hematocrit 39.6 % (39.0-53.0) Mean Corpuscular Volume 91 fL (79-100) Mean Corpuscular Hemoglobin 32 pg (25-35) Mean Corpuscular Hemoglobin Concent 35 g/dL (31-37) Red Cell Distribution Width 13.6 % (11.5-14.5) Platelet Count 279 x10^3/uL (140-400) Neutrophils (%) (Auto) 68 % (31-73) Lymphocytes (%) (Auto) 22 % (24-48) Monocytes (%) (Auto) 8 % (0-9) Eosinophils (%) (Auto) 2 % (0-3) Basophils (%) (Auto) 1 % (0-3) Neutrophils # (Auto) 8.3 x10^3uL (1.8-7.7) Lymphocytes # (Auto) 2.6 x10^3/uL (1.0-4.8) Monocytes # (Auto) 1.0 x10^3/uL (0.0-1.1) Eosinophils # (Auto) 0.2 x10^3/uL (0.0-0.7) Basophils # (Auto) 0.1 x10^3/uL (0.0-0.2) Sodium Level 139 mmol/L (136-145) Potassium Level 3.3 mmol/L (3.5-5.1) Chloride Level 104 mmol/L (98-107) Carbon Dioxide Level 21 mmol/L (21-32) Anion Gap 14 (6-14) Blood Urea Nitrogen 12 mg/dL (8-26) Creatinine 1.0 mg/dL (0.7-1.3) Estimated GFR (Cockcroft-Gault) 77.9 Glucose Level 88 mg/dL (70-99) Calcium Level 9.2 mg/dL (8.5-10.1) Microbiology 09/03/16 Blood Culture - Preliminary, Resulted NO GROWTH AFTER 1 DAY 09/03/16 Urine Culture - Preliminary, Resulted 09/03/16 Urine Culture Result 1 (AMARILYS) - Preliminary, Resulted Medications Current Medications Fentanyl Citrate (Fentanyl 2ml Vial) 50 mcg PRN Q15MIN PRN IV PAIN GREATER THAN 3/10 Last administered on 09/03/16 18:36; Start 09/03/16 at 15:45; Stop at 13:07; Status DC Sodium Chloride 1,000 ml @ 1,000 mls/hr Q1H IV Last administered on 09/03/16 16:27; Start 09/03/16 at 15:36; Stop 09/03/16 at 16:35; Status DC Ondansetron HCl (Zofran) 4 mg 1X ONCE IV Last administered on 09/03/16 16:25 ; Start 09/03/16 at 15:45; Stop 09/03/16 at 15:46; Status DC Famotidine (Pepcid) 20 mg 1X ONCE IVP Last administered on 09/03/16 16:26; Start 09/03/16 at 15:45; Stop 09/03/16 at 15:46; Status DC Dicyclomine HCl (Bentyl) 10 mg 1X ONCE IM Last administered on 09/03/16 16:27 ; Start 09/03/16 at 15:45; Stop 09/03/16 at 15:46; Status DC Ringer's Solution 1,000 ml @ 150 mls/hr Q6H40M IV Last administered on 07:54; Start 09/03/16 at 16:45 Iohexol (Omnipaque 300 Mg/ml) 75 ml 1X ONCE IV Last administered on 09/03/16 16:59; Start 09/03/16 at 16:45; Stop 09/03/16 at 16:46; Status DC Info (Do NOT chart on this entry -- for MONITORING) 1 each PRN DAILY PRN MC SEE COMMENTS; Start 09/03/16 at 17:00; Stop 09/05/16 at 16:59 Ondansetron HCl (Zofran) 4 mg PRN Q8HRS PRN IV NAUSEA/VOMITING Last administered on 09/04/16 02:20; Start 09/03/16 at 18:00; Stop 09/04/16 at 17:59 ; Status DC Morphine Sulfate 4 mg PRN Q2HR PRN IV PAIN Last administered on 09/04/16 09:20 ; Start 09/03/16 at 18:00; Stop 09/04/16 at 17:59; Status DC Acetaminophen (Tylenol) 650 mg PRN Q4HRS PRN PO FEVER; Start 09/03/16 at 18:00 ; Stop 09/04/16 at 17:59; Status DC Atorvastatin Calcium (Lipitor) 40 mg QHS PO Last administered on 09/04/16 20: 56; Start 09/03/16 at 21:00 Acetaminophen/ Hydrocodone Bitart (Lortab 5/325) 1 tab PRN Q4HRS PRN PO PAIN Last administered on 09/05/16 10:02; Start 09/03/16 at 20:00 Levothyroxine Sodium (Synthroid) 100 mcg DAILY PO Last administered on 10:00; Start 09/04/16 at 09:00 Montelukast Sodium (Singulair) 10 mg HS PO Last administered on 09/04/16 20:56 ; Start 09/03/16 at 21:00 Rivaroxaban (Xarelto) 20 mg DAILY PO Last administered on 09/05/16 10:00; Start 09/04/16 at 09:00 Sertraline HCl (Zoloft) 50 mg DAILY PO Last administered on 09/05/16 10:01; Start 09/04/16 at 09:00 Pantoprazole Sodium (Protonix) 40 mg DAILY PO Last administered on 09/05/16 10 :00; Start 09/04/16 at 09:00 Acetaminophen (Tylenol) 650 mg PRN Q6HRS PRN PO FEVER; Start 09/03/16 at 18:15 Ondansetron HCl (Zofran) 4 mg PRN Q6HRS PRN IV NAUSEA/VOMITING Last administered on 09/05/16 05:14; Start 09/03/16 at 18:15 Potassium Chloride (Klor-Con) 40 meq 1X ONCE PO Last administered on 19:00; Start 09/03/16 at 18:15; Stop 09/03/16 at 18:26; Status DC Potassium Chloride (Klor-Con) 40 meq 1X ONCE PO Last administered on 11:47; Start 09/04/16 at 09:15; Stop 09/04/16 at 09:21; Status DC Levofloxacin (Levaquin) 250 mg DAILY06 PO Last administered on 09/05/16 05:14 ; Start 09/04/16 at 10:00 Morphine Sulfate 4 mg PRN Q2HR PRN IV PAIN Last administered on 09/05/16 11:34 ; Start 09/05/16 at 09:00 Info (Anti-Coagulation Monitoring By Pharmacy) 1 each PRN DAILY PRN MC SEE COMMENTS Last administered on 09/05/16 12:13; Start 09/05/16 at 12:15 Active Scripts Active Atorvastatin Calcium 40 Mg Tablet 40 Mg PO QHS Reported Synthroid (Levothyroxine Sodium) 100 Mcg Tablet 1 Tab PO DAILY [place] 5-325 Tablet (Acetaminophen/Hydrocodone Bitart) 1 Each Tablet 1-2 Tab PO Q4HRS Singulair Tablet (Montelukast Sodium) 10 Mg Tablet 10 Mg PO HS Xarelto (Rivaroxaban) 10 Mg Tablet 20 Mg PO DAILY Zoloft (Sertraline Hcl) 50 Mg Tablet 50 Mg PO DAILY Vitals/I & O Vital Sign - Last 24 Hours 09/04/16 09/04/16 09/04/16 09/04/16 13:43 15:00 19:00 20:00 Temp 97.8 98.2 97.8 98.2 Pulse 80 89 Resp 20 16 18 B/P (MAP) 104/59 (74) 132/82 (99) Pulse Ox 95 95 97 O2 Delivery Room Air Room Air Room Air Room Air 09/04/16 09/04/16 09/05/16 09/05/16 20:57 23:00 02:36 07:36 Temp 98.2 97.7 98.2 97.7 Pulse 73 87 Resp 18 18 18 18 B/P (MAP) 115/66 (82) 127/81 (96) Pulse Ox 93 93 99 O2 Delivery Room Air Room Air Room Air Room Air 09/05/16 09/05/16 09/05/16 09/05/16 08:59 09:29 10:02 10:45 Temp 97.9 97.9 Pulse 90 Resp 20 20 20 18 B/P (MAP) 132/85 (101) Pulse Ox 93 93 93 98 O2 Delivery Room Air Room Air Room Air Room Air 09/05/16 09/05/16 11:02 11:34 Resp 20 20 Pulse Ox 93 93 O2 Delivery Room Air Room Air Intake and Output 09/04/16 09/04/16 09/05/16 15:00 23:00 07:00 Intake Total 400 ml 1040 ml 1071 ml Balance 400 ml 1040 ml 1071 ml ROCHELLE MANUEL MD September 05, 2016 12:21
[2016-09-05] MEDS ORDERED: oxyCODONE/APAP 5/325 1 TAB TABLET PO PRN (12:30)
[2016-09-05] MEDS ORDERED: ZOLPIDEM 5 MG TABLET. PO PRN (12:30)
[2016-09-05] MEDS ORDERED: POTASSIUM CHLORIDE 20 MEQ TABLET.ER. PO ONE ×2 (12:30→14:30)
[2016-09-05] MEDS ORDERED: ONDANSETRON ODT 4 MG TAB.RAPDIS. PO PRN (12:30)
--- NOTE | 2016-09-05 12:41 | PDOC ---
Subjective: Subjective: Was feeling better yesterday but had terrible abd pain overnight w/ dry-heaves and a little vomiting ("bile"). No appetite today, doesn't even want water. Morphine helping. No heartburn. Had a small stool. Objective: Objective: D/w RN - did okay w/ clears and then full liquids yesterday but had recurrence of abd pain overnight. Lortab wasn't helping, switched to Morphine. Not interested in eating today. Vital Signs: Vital Signs Date Time Temp Pulse Resp B/P (MAP) Pulse Ox O2 Delivery O2 Flow Rate FiO2 09/05/16 11:34 20 93 Room Air 09/05/16 10:45 97.9 90 132/85 (101) 97.9 Labs: Laboratory Tests Test 09/05/16 05:00 White Blood Count 12.2 x10^3/uL Red Blood Count 4.36 x10^6/uL Hemoglobin 13.8 g/dL Hematocrit 39.6 % Mean Corpuscular Volume 91 fL Mean Corpuscular Hemoglobin 32 pg Mean Corpuscular Hemoglobin Concent 35 g/dL Red Cell Distribution Width 13.6 % Platelet Count 279 x10^3/uL Neutrophils (%) (Auto) 68 % Lymphocytes (%) (Auto) 22 % Monocytes (%) (Auto) 8 % Eosinophils (%) (Auto) 2 % Basophils (%) (Auto) 1 % Neutrophils # (Auto) 8.3 x10^3uL Lymphocytes # (Auto) 2.6 x10^3/uL Monocytes # (Auto) 1.0 x10^3/uL Eosinophils # (Auto) 0.2 x10^3/uL Basophils # (Auto) 0.1 x10^3/uL Sodium Level 139 mmol/L Potassium Level 3.3 mmol/L Chloride Level 104 mmol/L Carbon Dioxide Level 21 mmol/L Anion Gap 14 Blood Urea Nitrogen 12 mg/dL Creatinine 1.0 mg/dL Estimated GFR (Cockcroft-Gault) 77.9 Glucose Level 88 mg/dL Calcium Level 9.2 mg/dL PE: GEN: NAD, laying in bed LUNGS: CTAB HEART: RRR ABD: soft, non-tender NEURO/PSYCH: A & O 3 A/P: N/v, abd pain - worse -onset Friday, first w/ heartburn, perhaps w/ viral prodrome -h/o gastric sleeve and cholecystectomy -previous EGD w/ chronic gastritis, last colonoscopy in 2008 -no NSAIDs, restarted on PPI here -- Recurrence of pain and vomiting overnight, better now w/ morphine. Continue supportive care. JENNIFER WHITE September 05, 2016 12:41
[2016-09-05 14:48] VITALS: BP 132/77
[2016-09-05 19:00] VITALS: BP 121/78
[2016-09-05] MEDS: ATORVASTATIN CALCIUM 40 MG TABLET. PO SCH (21:28)
[2016-09-05] MEDS: MONTELUKAST SODIUM 10 MG TABLET. PO SCH (21:28)
[2016-09-05 23:00] VITALS: BP 108/62
[2016-09-06] MEDS: MORPHINE SULFATE 4 MG/ML DISP.SYRIN. IV PRN (02:26)
[2016-09-06 03:00] VITALS: BP 114/81
[2016-09-06 04:52] LABS: BASO # 0.1 x10^3/uL (0.0-0.2); BASO % 1 % (0-3); EOS % 2 % (0-3); HEMATOCRIT 38.8 % (39.0-53.0); LYMPH % 25 % (24-48); MEAN CORPUSCULAR HEMOGLOBIN 31 pg (25-35); MEAN CORPUSCULAR HGB CONC 33 g/dL (31-37); MEAN CORPUSCULAR VOLUME 93 fL (79-100); MONO % 10 % (0-9); NEUT % 62 % (31-73); PLATELET COUNT 264 x10^3/uL (140-400); RED BLOOD COUNT 4.19 x10^6/uL (4.30-5.70); RED CELL DISTRIBUTION WIDTH 14.3 % (11.5-14.5); WHITE BLOOD COUNT 11.9 x10^3/uL (4.0-11.0)
[2016-09-06 05:47] LABS: CALCIUM 8.8 mg/dL (8.5-10.1); GFR 77.9; POTASSIUM 3.8 mmol/L (3.5-5.1)
[2016-09-06 07:48] VITALS: BP 110/73
[2016-09-06] MEDS: PANTOPRAZOLE 40 MG TABLET.DR. PO SCH (08:11)
[2016-09-06] MEDS: RIVAROXABAN 10 MG TABLET. PO SCH (08:11)
[2016-09-06] MEDS: SERTRALINE 50 MG TABLET. PO SCH (08:12)
[2016-09-06] MEDS: LEVOTHYROXINE 100 MCG TABLET PO SCH (08:13)
[2016-09-06] MEDS ORDERED: IV 1/2 NORMAL SALINE 1,000 ML IV ONE (10:30)
[2016-09-06 10:38] VITALS: BP 108/74
--- NOTE | 2016-09-06 11:37 | PDOC3 ---
Discharge Summary Visit Information Date of Admission: September 03, 2016 Date of Discharge: September 06, 2016 Admitting Diagnosis Comment: Abdominal pain, AGE? neg work up Vomiting Diarrhea Dehydration GERD H/o gastric sleeve H/o cholecystectomy Recent thyroidectomy - on Synthroid Hypertension Hyperlipidemia H/o pulmonary embolism Final Diagnosis Problems Medical Problems: (1) Dehydration Status: Acute (2) Intractable abdominal pain Status: Acute (3) Nausea and vomiting Status: Acute Brief Hospital Course Allergies Allergies Coded Allergies Type Severity Reaction Last Updated Verified No Known Drug Allergies 08/14/16 No Vital Signs Vital Signs Date Time Temp Pulse Resp B/P (MAP) Pulse Ox O2 Delivery O2 Flow Rate FiO2 09/06/16 07:48 98.1 71 18 110/73 (85) 96 Room Air 98.1 Lab Results Laboratory Tests Test 09/05/16 05:00 09/06/16 04:00 White Blood Count 12.2 x10^3/uL (4.0-11.0) 11.9 x10^3/uL (4.0-11.0) Red Blood Count 4.36 x10^6/uL (4.30-5.70) 4.19 x10^6/uL (4.30-5.70) Hemoglobin 13.8 g/dL (13.0-17.5) 13.0 g/dL (13.0-17.5) Hematocrit 39.6 % (39.0-53.0) 38.8 % (39.0-53.0) Mean Corpuscular Volume 91 fL (79-100) 93 fL (79-100) Mean Corpuscular Hemoglobin 32 pg (25-35) 31 pg (25-35) Mean Corpuscular Hemoglobin Concent 35 g/dL (31-37) 33 g/dL (31-37) Red Cell Distribution Width 13.6 % (11.5-14.5) 14.3 % (11.5-14.5) Platelet Count 279 x10^3/uL (140-400) 264 x10^3/uL (140-400) Neutrophils (%) (Auto) 68 % (31-73) 62 % (31-73) Lymphocytes (%) (Auto) 22 % (24-48) 25 % (24-48) Monocytes (%) (Auto) 8 % (0-9) 10 % (0-9) Eosinophils (%) (Auto) 2 % (0-3) 2 % (0-3) Basophils (%) (Auto) 1 % (0-3) 1 % (0-3) Neutrophils # (Auto) 8.3 x10^3uL (1.8-7.7) 7.4 x10^3uL (1.8-7.7) Lymphocytes # (Auto) 2.6 x10^3/uL (1.0-4.8) 3.0 x10^3/uL (1.0-4.8) Monocytes # (Auto) 1.0 x10^3/uL (0.0-1.1) 1.1 x10^3/uL (0.0-1.1) Eosinophils # (Auto) 0.2 x10^3/uL (0.0-0.7) 0.3 x10^3/uL (0.0-0.7) Basophils # (Auto) 0.1 x10^3/uL (0.0-0.2) 0.1 x10^3/uL (0.0-0.2) Sodium Level 139 mmol/L (136-145) 138 mmol/L (136-145) Potassium Level 3.3 mmol/L (3.5-5.1) 3.8 mmol/L (3.5-5.1) Chloride Level 104 mmol/L (98-107) 104 mmol/L (98-107) Carbon Dioxide Level 21 mmol/L (21-32) 23 mmol/L (21-32) Anion Gap 14 (6-14) 11 (6-14) Blood Urea Nitrogen 12 mg/dL (8-26) 11 mg/dL (8-26) Creatinine 1.0 mg/dL (0.7-1.3) 1.0 mg/dL (0.7-1.3) Estimated GFR (Cockcroft-Gault) 77.9 77.9 Glucose Level 88 mg/dL (70-99) 92 mg/dL (70-99) Calcium Level 9.2 mg/dL (8.5-10.1) 8.8 mg/dL (8.5-10.1) Magnesium Level 1.6 mg/dL (1.8-2.4) Laboratory Tests Test 09/06/16 04:00 White Blood Count 11.9 x10^3/uL (4.0-11.0) Red Blood Count 4.19 x10^6/uL (4.30-5.70) Hemoglobin 13.0 g/dL (13.0-17.5) Hematocrit 38.8 % (39.0-53.0) Mean Corpuscular Volume 93 fL (79-100) Mean Corpuscular Hemoglobin 31 pg (25-35) Mean Corpuscular Hemoglobin Concent 33 g/dL (31-37) Red Cell Distribution Width 14.3 % (11.5-14.5) Platelet Count 264 x10^3/uL (140-400) Neutrophils (%) (Auto) 62 % (31-73) Lymphocytes (%) (Auto) 25 % (24-48) Monocytes (%) (Auto) 10 % (0-9) Eosinophils (%) (Auto) 2 % (0-3) Basophils (%) (Auto) 1 % (0-3) Neutrophils # (Auto) 7.4 x10^3uL (1.8-7.7) Lymphocytes # (Auto) 3.0 x10^3/uL (1.0-4.8) Monocytes # (Auto) 1.1 x10^3/uL (0.0-1.1) Eosinophils # (Auto) 0.3 x10^3/uL (0.0-0.7) Basophils # (Auto) 0.1 x10^3/uL (0.0-0.2) Sodium Level 138 mmol/L (136-145) Potassium Level 3.8 mmol/L (3.5-5.1) Chloride Level 104 mmol/L (98-107) Carbon Dioxide Level 23 mmol/L (21-32) Anion Gap 11 (6-14) Blood Urea Nitrogen 11 mg/dL (8-26) Creatinine 1.0 mg/dL (0.7-1.3) Estimated GFR (Cockcroft-Gault) 77.9 Glucose Level 92 mg/dL (70-99) Calcium Level 8.8 mg/dL (8.5-10.1) Magnesium Level 1.6 mg/dL (1.8-2.4) Brief Hospital Course Mr. Garza is a 56 old male admitted for abd pain, intractable, NEg blood work and imaging, NO change in meds,.RX for percocet and zofran ODT - was gettinglevaquin here 250 x 3 doses. WIll rx for 4 more. Pt seen and examined DispO; home COnsults: GI Proc; none Time 32 mins > 50% counselling Discharge Information Condition at Discharge: Improved, Stable Disposition/Orders: D/C to Home Scheduled Atorvastatin Calcium (Atorvastatin Calcium), 40 MG PO QHS Hydrocodone/[place] 5-325 ([place] 5-325 Tablet), 1-2 TAB PO Q4HRS, (Reported) Levothyroxine Sodium (Synthroid), 1 TAB PO DAILY, (Reported) Montelukast Sodium (Singulair Tablet), 10 MG PO HS, (Reported) Rivaroxaban (Xarelto), 20 MG PO DAILY, (Reported) Sertraline Hcl (Zoloft), 50 MG PO DAILY, (Reported) ROCHELLE MANUEL MD September 06, 2016 11:37
--- NOTE | 2016-09-06 13:57 | PDOC ---
Subjective: Subjective: Feeling much better, wants to DC. Says still not eating much - ate chang, eggs, toast, and chicken pot pie. No heartburn. No n/v. Less pain. Objective: Vital Signs: Vital Signs Date Time Temp Pulse Resp B/P (MAP) Pulse Ox O2 Delivery O2 Flow Rate FiO2 09/06/16 10:38 98.1 78 18 108/74 (85) 97 Room Air 98.1 Labs: Laboratory Tests Test 09/06/16 04:00 White Blood Count 11.9 x10^3/uL Red Blood Count 4.19 x10^6/uL Hemoglobin 13.0 g/dL Hematocrit 38.8 % Mean Corpuscular Volume 93 fL Mean Corpuscular Hemoglobin 31 pg Mean Corpuscular Hemoglobin Concent 33 g/dL Red Cell Distribution Width 14.3 % Platelet Count 264 x10^3/uL Neutrophils (%) (Auto) 62 % Lymphocytes (%) (Auto) 25 % Monocytes (%) (Auto) 10 % Eosinophils (%) (Auto) 2 % Basophils (%) (Auto) 1 % Neutrophils # (Auto) 7.4 x10^3uL Lymphocytes # (Auto) 3.0 x10^3/uL Monocytes # (Auto) 1.1 x10^3/uL Eosinophils # (Auto) 0.3 x10^3/uL Basophils # (Auto) 0.1 x10^3/uL Sodium Level 138 mmol/L Potassium Level 3.8 mmol/L Chloride Level 104 mmol/L Carbon Dioxide Level 23 mmol/L Anion Gap 11 Blood Urea Nitrogen 11 mg/dL Creatinine 1.0 mg/dL Estimated GFR (Cockcroft-Gault) 77.9 Glucose Level 92 mg/dL Calcium Level 8.8 mg/dL Magnesium Level 1.6 mg/dL PE: GEN: NAD LUNGS: CTAB HEART: RRR ABD: some right-sided tenderness NEURO/PSYCH: A & O 3 A/P: N/v, abd pain, heartburn - improved -h/o gastric sleeve and cholecystectomy -previous EGD w/ chronic gastritis, last colonoscopy in 2008 -- Likely infectious, resolving. Ok to DC per GI. Continue PPI - he says he has Dexilant at home. JENNIFER WHITE September 06, 2016 13:57
== END 2016-09-06 14:00 | disposition home or self-care (01) | DRG 391 ==
LOC: ER 14:46 → 5 NORTH 17:47
PROVIDERS: ADMIT Internal Medicine; ATTEND Internal Medicine
DX: K52.9 Noninfective gastroenteritis and colitis, unspecified (principal); N17.0 Acute kidney failure with tubular necrosis; N39.0 Urinary tract infection, site not specified; K21.9 Gastro-esophageal reflux disease without esophagitis; I10 Essential (primary) hypertension; F32.9 Major depressive disorder, single episode, unspecified; E87.6 Hypokalemia; E78.5 Hyperlipidemia, unspecified; E66.01 Morbid (severe) obesity due to excess calories; M10.9 Gout, unspecified; M19.90 Unspecified osteoarthritis, unspecified site; Z82.49 Family history of ischemic heart disease and other diseases of the circulatory system; Z90.49 Acquired absence of other specified parts of digestive tract; Z86.711 Personal history of pulmonary embolism; Z87.19 Personal history of other diseases of the digestive system; Z87.11 Personal history of peptic ulcer disease; Z68.36 Body mass index [BMI] 36.0-36.9, adult; Z98.52 Vasectomy status; Z79.899 Other long term (current) drug therapy
CPT/HCPCS: 36415; 74022; 74177; 80048; 80053; 81001; 83605; 83690; 83735; 85007; 85027; 87040; 87086; 93005; 96361; 96372; 96374; 96375; J0500; J2270; J2405; J3010; J7030; J7120; Q9967; S0028; 99285-25

== ENCOUNTER 2019-06-30 19:13 | Inpatient (IN) | payer BC ==
[~2019-06-30] VITALS: Ht 180.3 cm; Wt 111.2 kg
[~2019-06-30 19:13] MED LIST changes: -AMLO1CAP12 PO; +AMLO1CAP13 PO; +HYDR-3164 PO; -HYDR-971 PO; +MONT10TA49 PO; -MONT10TA6 PO; +NAPR-514 PO; -NAPR500T3 PO; -PANT40TA5 PO; +PANT40TA77 PO; +WARF-31 PO; -WARF5TAB7 PO; +WARF7.5T45 PO; -WARF7.5T6 PO
--- NOTE | 2019-06-30 19:43 | PHYS DOC ---
Past Medical History Past Medical History: High Cholesterol, Hypertension, Hypothyroid, Other Additional Past Medical Histor: PE's Past Surgical History: Cholecystectomy, Other Additional Past Surgical Histo: ANKLE, GASTRIC SLEEVE, thyroidectomy Smoking Status: Never Smoker Alcohol Use: None Drug Use: None Adult General Chief Complaint Chief Complaint: ABDOMINAL PAIN HPI HPI Patient is a 59 year old female who presents with abdominal pain onset 4 hours prior to ED arrival with history of recurrent vomiting syndrome. Pain is rated moderate to severe and described as aching and nonradiating. Patient reports multiple episodes of bilious emesis. Patient states symptoms are similar to prior episodes of vomiting. Denies known trigger. Patient did not eat prior to symptom onset. He states he has had EGDs in the past which were nondiagnostic and follows with Dr. Griffin as an outpatient. Reports sweats. No chest pain, shortness of breath, fever or chills. No flank pain. No constipation or diarrhea. He is cholecystectomy. [] Review of Systems Review of Systems ROS as per HPI. All other systems were reviewed and found to be within normal limits, except as documented in this note. Current Medications Current Medications Current Medications Medications (Trade) Dose Ordered Sig/Nicolas Start Time Stop Time Status Last Admin Dose Admin Famotidine (Pepcid Vial) 20 mg BID 07/01/19 09:00 Haloperidol Lactate (Haldol Inj) 2.5 mg 1X ONCE 06/30/19 23:00 06/30/19 23:01 UNV Info (CONTRAST GIVEN -- Rx MONITORING) 1 each PRN DAILY PRN 06/30/19 21:30 07/02/19 21:29 Iohexol (Omnipaque 300 Mg/ml) 75 ml 1X ONCE 06/30/19 21:30 06/30/19 21:31 DC 06/30/19 21:39 75 ML Morphine Sulfate (Morphine Sulfate) 2 mg PRN Q2HR PRN 06/30/19 23:00 07/01/19 22:59 Ondansetron HCl (Zofran) 4 mg Q4HRS 07/01/19 00:00 Potassium Chloride/Dextrose/ Sod Cl 1,000 ml @ 125 mls/hr 1X ONCE 06/30/19 23:00 07/01/19 06:59 06/30/19 23:13 125 MLS/HR Allergies Allergies Allergies Coded Allergies Type Severity Reaction Last Updated Verified No Known Drug Allergies 08/14/16 No Physical Exam Physical Exam Constitutional: Well developed, well nourished, moderate discomfort secondary to pain[] HENT: Normocephalic, atraumatic, bilateral external ears normal, oropharynx moist, nose normal. [] Eyes: PERRLA, EOMI, conjunctiva normal, no discharge. [] Neck: Normal range of motion, no tenderness. [] Cardiovascular:Heart rate regular rhythm, no murmur [] Lungs & Thorax: Bilateral breath sounds clear to auscultation [] Abdomen: Bowel sounds normal, soft, epi-gastric pain, tenderness.. [] Skin: Warm, dry, no erythema, no rash. [] Back: No tenderness, no CVA tenderness. [] Extremities: No tenderness, no cyanosis, no clubbing, ROM intact, no edema. [] Neurologic: Alert and oriented X 3, normal motor function, normal sensory function, no focal deficits noted. [] Psychologic: Affect normal, judgement normal, mood normal. [] Current Patient Data Vital Signs Vital Signs Date Time Temp Pulse Resp B/P (MAP) Pulse Ox O2 Delivery O2 Flow Rate FiO2 06/30/19 21:57 16 99 Room Air 06/30/19 19:20 98.3 85 178/100 (126) 98.3 Lab Values Laboratory Tests Test 06/30/19 19:25 White Blood Count 8.7 x10^3/uL (4.0-11.0) Red Blood Count 5.40 x10^6/uL (4.30-5.70) Hemoglobin 16.2 g/dL (13.0-17.5) Hematocrit 47.3 % (39.0-53.0) Mean Corpuscular Volume 88 fL (79-100) Mean Corpuscular Hemoglobin 30 pg (25-35) Mean Corpuscular Hemoglobin Concent 34 g/dL (31-37) Red Cell Distribution Width 16.3 % (11.5-14.5) H Platelet Count 308 x10^3/uL (140-400) Neutrophils (%) (Auto) 79 % (31-73) H Lymphocytes (%) (Auto) 14 % (24-48) L Monocytes (%) (Auto) 7 % (0-9) Eosinophils (%) (Auto) 0 % (0-3) Basophils (%) (Auto) 1 % (0-3) Neutrophils # (Auto) 6.8 x10^3/uL (1.8-7.7) Lymphocytes # (Auto) 1.2 x10^3/uL (1.0-4.8) Monocytes # (Auto) 0.6 x10^3/uL (0.0-1.1) Eosinophils # (Auto) 0.0 x10^3/uL (0.0-0.7) Basophils # (Auto) 0.1 x10^3/uL (0.0-0.2) Urine Collection Type Unknown Urine Color Yellow Urine Clarity Clear Urine pH 6.0 (<5.0-8.0) Urine Specific [place] 1.015 (1.000-1.030) Urine Protein Negative mg/dL (NEG-TRACE) Urine Glucose (UA) Negative mg/dL (NEG) Urine Ketones (Stick) Negative mg/dL (NEG) Urine Blood Negative (NEG) Urine Nitrite Negative (NEG) Urine Bilirubin Negative (NEG) Urine Urobilinogen Dipstick 1.0 mg/dL (0.2 mg/dL) Urine Leukocyte Esterase Negative (NEG) Urine RBC Occ /HPF (0-2) Urine WBC Occ /HPF (0-4) Urine Squamous Epithelial Cells Occ /LPF Urine Bacteria 0 /HPF (0-FEW) Urine Hyaline Casts Occasional /HPF Urine Mucus Marked /LPF Sodium Level 140 mmol/L (136-145) Potassium Level 3.9 mmol/L (3.5-5.1) Chloride Level 103 mmol/L (98-107) Carbon Dioxide Level 19 mmol/L (21-32) L Anion Gap 18 (6-14) H Blood Urea Nitrogen 9 mg/dL (8-26) Creatinine 1.0 mg/dL (0.7-1.3) Estimated GFR (Cockcroft-Gault) 77.0 BUN/Creatinine Ratio 9 (6-20) Glucose Level 108 mg/dL (70-99) H Calcium Level 9.1 mg/dL (8.5-10.1) Total Bilirubin 0.4 mg/dL (0.2-1.0) Aspartate Amino Transferase (AST) 22 U/L (15-37) Alanine Aminotransferase (ALT) 19 U/L (16-63) Alkaline Phosphatase 96 U/L (46-116) Total Protein 7.3 g/dL (6.4-8.2) Albumin 3.5 g/dL (3.4-5.0) Albumin/Globulin Ratio 0.9 (1.0-1.7) L Lipase 199 U/L (73-393) Laboratory Tests 06/30/19 19:25 Laboratory Tests 06/30/19 19:25 EKG EKG [] Radiology/Procedures Radiology/Procedures CT abdomen/pelvis: NAD per radiology report[] Course & Med Decision Making Course & Med Decision Making Pertinent Labs and Imaging studies reviewed. (See chart for details) [Patient with persistent nausea vomiting despite repeat antiemetics. Lab and imaging unremarkable. Will admit the hospital service with GI consult as needed.] Dragon Disclaimer Dragon Disclaimer This electronic medical record was generated, in whole or in part, using a voice recognition dictation system. Departure Departure Impression: Primary Impression: Intractable nausea and vomiting Disposition: HOME, SELF-CARE Condition: STABLE Referrals: YOHAN KIMBLE MD (PCP) SUHAS STOKES DO Jun 30, 2019 19:43
[2019-06-30] MEDS ORDERED: FAMOTIDINE 20 MG/2 ML VIAL IVP ONE (19:45)
[2019-06-30] MEDS ORDERED: ONDANSETRON PF 4 MG/2 ML VIAL. IVP ONE (19:45)
[2019-06-30 20:08] LABS: BILIRUBIN,URINE NEGATIVE (NEG); CLARITY,URINE CLEAR; COLOR,URINE YELLOW; NITRITE,URINE NEGATIVE (NEG); PROTEIN,URINE NEGATIVE (NEG-TRACE)
[2019-06-30 20:17] LABS: BACTERIA,URINE 0 /HPF (0-FEW); HYALINE CASTS, URINE OCCASIONAL /HPF; RBC,URINE OCC /HPF (0-2); SQUAMOUS EPITHELIAL CELL,UR OCC /LPF; WBC,URINE OCC /HPF (0-4)
[2019-06-30 20:30] LABS: BASO # 0.1 x10^3/uL (0.0-0.2); BASO % 1 % (0-3); EOS % 0 % (0-3); HEMATOCRIT 47.3 % (39.0-53.0); HEMOGLOBIN 16.2 g/dL (13.0-17.5); LYMPH # 1.2 x10^3/uL (1.0-4.8); LYMPH % 14 % (24-48); MEAN CORPUSCULAR HEMOGLOBIN 30 pg (25-35); MEAN CORPUSCULAR HGB CONC 34 g/dL (31-37); MEAN CORPUSCULAR VOLUME 88 fL (79-100); MONO # 0.6 x10^3/uL (0.0-1.1); MONO % 7 % (0-9); NEUT # 6.8 x10^3/uL (1.8-7.7); NEUT % 79 % (31-73); PLATELET COUNT 308 x10^3/uL (140-400); RED CELL DISTRIBUTION WIDTH 16.3 % (11.5-14.5); WHITE BLOOD COUNT 8.7 x10^3/uL (4.0-11.0)
[2019-06-30] MEDS ORDERED: HALOPERIDOL LACTATE 5 MG/ML VIAL. IVP ONE ×3 (20:30→23:00)
[2019-06-30 20:38] LABS: CALCIUM 9.1 mg/dL (8.5-10.1); POTASSIUM 3.9 mmol/L (3.5-5.1)
[2019-06-30 20:44] LABS: ALBUMIN 3.5 g/dL (3.4-5.0); ALBUMIN/GLOBULIN RATIO 0.9 (1.0-1.7); TOTAL BILIRUBIN 0.4 mg/dL (0.2-1.0); TOTAL PROTEIN 7.3 g/dL (6.4-8.2)
[2019-06-30] MEDS ORDERED: IOHEXOL 300 MG/ML 100ML VIAL. IV ONE (21:30)
[2019-06-30] MEDS ORDERED: MORPHINE SULFATE 4 MG/ML VIAL. IV ONE (21:30)
[2019-06-30] MEDS ORDERED: CONTRAST GIVEN. MC PRN (21:30)
--- NOTE | 2019-06-30 21:55 | RAD ---
Exam: CT of abdomen and pelvis with contrast INDICATION: Abdominal pain TECHNIQUE: Sequential axial images through the abdomen and pelvis obtained following the administration of 70 mL of Omni 300 IV contrast. Sagittal and coronal reformatted images were reconstructed from the axial data and reviewed. Comparisons: 09/03/2016 FINDINGS: Heart size is normal. No pericardial effusion. Visualized lung bases are clear. No pleural effusion. Liver, spleen, pancreas, and adrenals are unremarkable. Gallbladder surgically absent. Kidneys demonstrate symmetric enhancement. No perinephric inflammation or hydronephrosis. No renal or ureteral calculi are identified. Bladder is distended and appears thin-walled. Uterus is not enlarged. No abnormal adnexal mass. Large and small bowel are unremarkable. Appendix is normal. No free intra-abdominal air or fluid. No obstruction. Abdominal aorta has a normal course and caliber. Abdominal vasculature is patent. No enlarged abdominal lymph nodes are identified. No suspicious osseous lesions or acute fractures. IMPRESSION: No acute process identified within the abdomen or pelvis. Exposure: One or more of the following in the visualized dose reduction techniques were utilized for this examination: 1. Automated exposure control 2. Adjustment of the MA and/or KV according to patient size 3. Use of iterative of reconstructive technique Electronically signed by: Maximilian Rodriguez MD (06/30/2019 9:52 PM) [id number]
[2019-06-30] MEDS ORDERED: POTASSIUM CL 20MEQ D5-0.45NACL 1,000 ML IV ONE (23:00)
[2019-06-30] MEDS ORDERED: ONDANSETRON PF 4 MG/2 ML VIAL. IV PRN (23:00)
[2019-07-01] VITALS (7 sets, daily range): BP systolic 128–170; BP diastolic 75–98
[2019-07-01] MEDS ORDERED: LEVO200T5 PO (00:05)
[2019-07-01] MEDS: MORPHINE SULFATE 2 MG/ML VIAL. IV PRN ×3 (00:14→23:38)
[2019-07-01] MEDS: ONDANSETRON PF 4 MG/2 ML VIAL. IVP SCH ×6 (00:21→20:37)
[2019-07-01 05:03] LABS: BASO % 0 % (0-3); EOS % 0 % (0-3); HEMATOCRIT 43.2 % (39.0-53.0); HEMOGLOBIN 14.4 g/dL (13.0-17.5); LYMPH # 1.4 x10^3/uL (1.0-4.8); LYMPH % 13 % (24-48); MEAN CORPUSCULAR HEMOGLOBIN 30 pg (25-35); MEAN CORPUSCULAR HGB CONC 33 g/dL (31-37); MEAN CORPUSCULAR VOLUME 88 fL (79-100); MONO % 8 % (0-9); NEUT # 9.2 x10^3/uL (1.8-7.7); NEUT % 79 % (31-73); PLATELET COUNT 307 x10^3/uL (140-400); RED BLOOD COUNT 4.89 x10^6/uL (4.30-5.70); RED CELL DISTRIBUTION WIDTH 16.6 % (11.5-14.5); WHITE BLOOD COUNT 11.6 x10^3/uL (4.0-11.0)
[2019-07-01 05:37] LABS: ALBUMIN 3.2 g/dL (3.4-5.0); CALCIUM 8.9 mg/dL (8.5-10.1); CREATININE 0.9 mg/dL (0.7-1.3); POTASSIUM 3.9 mmol/L (3.5-5.1); TOTAL BILIRUBIN 0.7 mg/dL (0.2-1.0); TOTAL PROTEIN 6.4 g/dL (6.4-8.2)
[2019-07-01] MEDS ORDERED: FAMOTIDINE 20 MG/2 ML VIAL IVP SCH (09:00)
--- NOTE | 2019-07-01 11:04 | PDOC1 ---
History and Physical Date of Admission Date of Admission DATE: 07/01/19 TIME: 11:04 Identification/Chief Complaint Chief Complaint SEEN IN ER WITH INTRACTABLE VOMITING 59 year old female who presents with abdominal pain onset 4 hours prior to ED arrival with history of recurrent vomiting syndrome. rated moderate to severe and described as aching and nonradiating. Patient reports multiple episodes of bilious emesis. //symptoms are similar to prior episodes of vomiting. Denies known trigger. Patient did not eat prior to symptom onset. He states he has had EGDs in the past which were nondiagnostic and follows with Dr. Griffin as an outpatient. Reports sweats. No chest pain, shortness of breath, fever or chills. NO EMESIS THIS AM Past Medical History Past Medical History Past Medical History Past Medical History: High Cholesterol, Hypertension, Hypothyroid, Other Additional Past Medical Histor: PE's Past Surgical History: Cholecystectomy, Other Additional Past Surgical Histo: ANKLE, GASTRIC SLEEVE, thyroidectomy Smoking Status: Never Smoker Alcohol Use: None Drug Use: None FHX OBESITY Cardiovascular: HTN, Hyperlipidemia Pulmonary: Pulmonary embolus CENTRAL NERVOUS SYSTEM: Other GI: GERD Heme/Onc: No pertinent hx Hepatobiliary: Cholelithiasis Psych: No pertinent hx Musculoskeletal: Osteoarthritis Rheumatologic: No pertinent hx Infectious disease: No pertinent hx Renal/: No pertinent hx Endocrine: Other Past Surgical History Past Surgical History: Cholecystectomy Family History Family History: Coronary Artery Disease, Hypertension Social History Smoke: No ALCOHOL: none Drugs: None Current Medications Current Medications Current Medications Ondansetron HCl (Zofran) 8 mg 1X ONCE IVP Last administered on 06/30/19at 19:55; Start 06/30/19 at 19:45; Stop 06/30/19 at 19:46; Status DC Famotidine (Pepcid Vial) 20 mg 1X ONCE IVP Last administered on 06/30/19at 19:55; Start 06/30/19 at 19:45; Stop 06/30/19 at 19:46; Status DC Haloperidol Lactate (Haldol Inj) 2.5 mg 1X ONCE IVP Last administered on 06/30/19at 20:38; Start 06/30/19 at 20:30; Stop 06/30/19 at 20:31; Status DC Morphine Sulfate (Morphine Sulfate) 4 mg 1X ONCE IV Last administered on 06/30/19at 21:57; Start 06/30/19 at 21:30; Stop 06/30/19 at 21:31; Status DC Iohexol (Omnipaque 300 Mg/ml) 75 ml 1X ONCE IV Last administered on 06/30/19at 21:39; Start 06/30/19 at 21:30; Stop 06/30/19 at 21:31; Status DC Info (CONTRAST GIVEN -- Rx MONITORING) 1 each PRN DAILY PRN MC SEE COMMENTS; Start 06/30/19 at 21:30; Stop 07/02/19 at 21:29 Haloperidol Lactate (Haldol Inj) 2.5 mg 1X ONCE IVP Last administered on 06/30/19at 23:13; Start 06/30/19 at 23:00; Stop 06/30/19 at 23:01; Status DC Ondansetron HCl (Zofran) 4 mg PRN Q8HRS PRN IV NAUSEA/VOMITING; Start 06/30/19 at 23:00; Stop 07/01/19 at 22:59 Morphine Sulfate (Morphine Sulfate) 2 mg PRN Q2HR PRN IV PAIN Last administered on 07/01/19at 03:10; Start 06/30/19 at 23:00; Stop 07/01/19 at 22:59 Haloperidol Lactate (Haldol Inj) 2.5 mg 1X ONCE IVP ; Start 06/30/19 at 23:00; Stop 06/30/19 at 23:01; Status UNV Ondansetron HCl (Zofran) 4 mg Q4HRS IVP Last administered on 07/01/19at 08:44; Start 07/01/19 at 00:00 Famotidine (Pepcid Vial) 20 mg BID IVP Last administered on 07/01/19at 08:44; Start 07/01/19 at 09:00 Potassium Chloride/Dextrose/ Sod Cl 1,000 ml @ 125 mls/hr 1X ONCE IV Last administered on 06/30/19at 23:13; Start 06/30/19 at 23:00; Stop 07/01/19 at 06:59; Status DC Active Scripts Active Reported Levothyroxine Sodium 200 Mcg Tablet 200 Mcg PO DAILYAC Xarelto (Rivaroxaban) 10 Mg Tablet 20 Mg PO DAILY Allergies Allergies: Coded Allergies: No Known Drug Allergies (Unverified , 08/14/16) ROS Review of System Review of Systems Review of Systems ROS as per HPI. 14 PT systems were reviewed and found to be within normal limits, except as documented General: YES: Fatigue PSYCHOLOGICAL ROS: No: Anxiety, Behavioral Disorder, Concentration difficultie, Decreased libido, Depression, Disorientation, Hallucinations, Hostility, Irritablity, Memory difficulties, Mood Swings, Obsessive thoughts, Physical abuse, Sexual abuse, Sleep disturbances, Suicidal ideation, Other Eyes: No Blurry vision, No Decreased vision, No Double vision, No Dry eyes, No Excessive tearing, No Eye Pain, No Itchy Eyes, No Loss of vision, No Photophobia, No Scotomata, No Uses contacts, No Uses glasses, No Other HEENT: No: Heacaches, Visual Changes, Hearing change, Nasal congestion, Nasal discharge, Oral lesions, Sinus pain, Sore Throat, Epistaxis, Sneezing, Snoring, Tinnitus, Vertigo, Vocal changes, Other ALLERGY AND IMMUNOLOGY: No: Hives, Insect Bite Sensitivity, Itchy/Watery Eyes, Nasal Congestion, Post Nasal Drip, Seasonal Allergies, Other Hematological and Lymphatic: No: Bleeding Problems, Blood Clots, Blood Transfusions, Brusing, Night Sweats, Pallor, Swollen Lymph Nodes, Other Respiratory: No: Cough, Hemoptysis, Orthopnea, Pleuritic Pain, Shortness of breath, SOB with excertion, Sputum Changes, Stridor, Tachypnea, Wheezing, Other Cardiovascular: No Chest Pain, No Palpitations, No Orthopnea, No Paroxysmal Noc. Dyspnea, No Edema, No Lt Headedness, No Other Gastrointestinal: Yes Nausea, Yes Vomiting Genitourinary: No Dysuria, No Frequency, No Incontinence, No Hematuria, No Retention, No Discharge, No Urgency, No Pain, No Flank Pain, No Other, No , No , No , No , No , No , No Neurological: No Behavorial Changes, No Bowel/Bladder ControlChng, No Confusion, No Dizziness, No Gait Disturbance, No Headaches, No Impaired Coord/balance, No Memory Loss, No Numbness/Tingling, No Seizures, No Speech Problems, No Tremors, No Visual Changes, No Weakness, No Other Skin: No Dry Skin, No Eczema, No Hair Changes, No Lumps, No Mole Changes, No Mottling, No Nail Changes, No Pruritus, No Rash, No Skin Lesion Changes, No Other, No Acne Physical Exam Physical Exam Physical Exam Physical Exam Constitutional: Well developed, well nourished,MILD discomfort secondary to pain[] HENT: Normocephalic, atraumatic, bilateral external ears normal, oropharynx moist, nose normal. [] Eyes: PERRLA, EOMI, conjunctiva normal, no discharge. [] Neck: Normal range of motion, no tenderness. [] Cardiovascular:Heart rate regular rhythm, no murmur [] Lungs & Thorax: Bilateral breath sounds clear to auscultation [] Abdomen: Bowel sounds normal, soft, epi-gastric pain, tenderness.. [] Skin: Warm, dry, no erythema, no rash. [] Back: No tenderness, no CVA tenderness. [] Extremities: No tenderness, no cyanosis, no clubbing, ROM intact, no edema. [] Neurologic: Alert and oriented X 3, normal motor function, normal sensory function, no focal deficits noted. [] Psychologic: Affect normal, judgment normal, mood normal. [] General: Alert, Oriented X3, Cooperative, No acute distress HEENT: Atraumatic, EOMI, Mucous membr. moist/pink Lungs: Clear to auscultation, Normal air movement Heart: S1S2, RRR, no murmurs Breasts: Not examined Abdomen: Normal bowel sounds, Soft, No hepatosplenomegaly Rectal Exam: not examined Extremities: No cyanosis, No edema Skin: No rashes, No significant lesion Neuro: Normal speech, Cranial nerves 3-12 NL Psych/Mental Status: Mental status NL, Mood NL Vitals Vitals Vital Signs Date Time Temp Pulse Resp B/P (MAP) Pulse Ox O2 Delivery O2 Flow Rate FiO2 07/01/19 07:00 98.3 77 16 128/87 (101) 98 Room Air 98.3 Labs Labs Laboratory Tests Test 06/30/19 19:25 07/01/19 04:00 White Blood Count 8.7 x10^3/uL (4.0-11.0) 11.6 x10^3/uL (4.0-11.0) Red Blood Count 5.40 x10^6/uL (4.30-5.70) 4.89 x10^6/uL (4.30-5.70) Hemoglobin 16.2 g/dL (13.0-17.5) 14.4 g/dL (13.0-17.5) Hematocrit 47.3 % (39.0-53.0) 43.2 % (39.0-53.0) Mean Corpuscular Volume 88 fL (79-100) 88 fL (79-100) Mean Corpuscular Hemoglobin 30 pg (25-35) 30 pg (25-35) Mean Corpuscular Hemoglobin Concent 34 g/dL (31-37) 33 g/dL (31-37) Red Cell Distribution Width 16.3 % (11.5-14.5) 16.6 % (11.5-14.5) Platelet Count 308 x10^3/uL (140-400) 307 x10^3/uL (140-400) Neutrophils (%) (Auto) 79 % (31-73) 79 % (31-73) Lymphocytes (%) (Auto) 14 % (24-48) 13 % (24-48) Monocytes (%) (Auto) 7 % (0-9) 8 % (0-9) Eosinophils (%) (Auto) 0 % (0-3) 0 % (0-3) Basophils (%) (Auto) 1 % (0-3) 0 % (0-3) Neutrophils # (Auto) 6.8 x10^3/uL (1.8-7.7) 9.2 x10^3/uL (1.8-7.7) Lymphocytes # (Auto) 1.2 x10^3/uL (1.0-4.8) 1.4 x10^3/uL (1.0-4.8) Monocytes # (Auto) 0.6 x10^3/uL (0.0-1.1) 1.0 x10^3/uL (0.0-1.1) Eosinophils # (Auto) 0.0 x10^3/uL (0.0-0.7) 0.0 x10^3/uL (0.0-0.7) Basophils # (Auto) 0.1 x10^3/uL (0.0-0.2) 0.0 x10^3/uL (0.0-0.2) Urine Collection Type Unknown Urine Color Yellow Urine Clarity Clear Urine pH 6.0 (<5.0-8.0) Urine Specific [place] 1.015 (1.000-1.030) Urine Protein Negative mg/dL (NEG-TRACE) Urine Glucose (UA) Negative mg/dL (NEG) Urine Ketones (Stick) Negative mg/dL (NEG) Urine Blood Negative (NEG) Urine Nitrite Negative (NEG) Urine Bilirubin Negative (NEG) Urine Urobilinogen Dipstick 1.0 mg/dL (0.2 mg/dL) Urine Leukocyte Esterase Negative (NEG) Urine RBC Occ /HPF (0-2) Urine WBC Occ /HPF (0-4) Urine Squamous Epithelial Cells Occ /LPF Urine Bacteria 0 /HPF (0-FEW) Urine Hyaline Casts Occasional /HPF Urine Mucus Marked /LPF Sodium Level 140 mmol/L (136-145) 142 mmol/L (136-145) Potassium Level 3.9 mmol/L (3.5-5.1) 3.9 mmol/L (3.5-5.1) Chloride Level 103 mmol/L (98-107) 106 mmol/L (98-107) Carbon Dioxide Level 19 mmol/L (21-32) 24 mmol/L (21-32) Anion Gap 18 (6-14) 12 (6-14) Blood Urea Nitrogen 9 mg/dL (8-26) 7 mg/dL (8-26) Creatinine 1.0 mg/dL (0.7-1.3) 0.9 mg/dL (0.7-1.3) Estimated GFR (Cockcroft-Gault) 77.0 87.0 BUN/Creatinine Ratio 9 (6-20) 8 (6-20) Glucose Level 108 mg/dL (70-99) 132 mg/dL (70-99) Calcium Level 9.1 mg/dL (8.5-10.1) 8.9 mg/dL (8.5-10.1) Total Bilirubin 0.4 mg/dL (0.2-1.0) 0.7 mg/dL (0.2-1.0) Aspartate Amino Transf (AST/SGOT) 22 U/L (15-37) 14 U/L (15-37) Alanine Aminotransferase (ALT/SGPT) 19 U/L (16-63) 15 U/L (16-63) Alkaline Phosphatase 96 U/L (46-116) 84 U/L (46-116) Total Protein 7.3 g/dL (6.4-8.2) 6.4 g/dL (6.4-8.2) Albumin 3.5 g/dL (3.4-5.0) 3.2 g/dL (3.4-5.0) Albumin/Globulin Ratio 0.9 (1.0-1.7) 1.0 (1.0-1.7) Lipase 199 U/L (73-393) Laboratory Tests Test 06/30/19 19:25 07/01/19 04:00 White Blood Count 8.7 x10^3/uL (4.0-11.0) 11.6 x10^3/uL (4.0-11.0) Red Blood Count 5.40 x10^6/uL (4.30-5.70) 4.89 x10^6/uL (4.30-5.70) Hemoglobin 16.2 g/dL (13.0-17.5) 14.4 g/dL (13.0-17.5) Hematocrit 47.3 % (39.0-53.0) 43.2 % (39.0-53.0) Mean Corpuscular Volume 88 fL (79-100) 88 fL (79-100) Mean Corpuscular Hemoglobin 30 pg (25-35) 30 pg (25-35) Mean Corpuscular Hemoglobin Concent 34 g/dL (31-37) 33 g/dL (31-37) Red Cell Distribution Width 16.3 % (11.5-14.5) 16.6 % (11.5-14.5) Platelet Count 308 x10^3/uL (140-400) 307 x10^3/uL (140-400) Neutrophils (%) (Auto) 79 % (31-73) 79 % (31-73) Lymphocytes (%) (Auto) 14 % (24-48) 13 % (24-48) Monocytes (%) (Auto) 7 % (0-9) 8 % (0-9) Eosinophils (%) (Auto) 0 % (0-3) 0 % (0-3) Basophils (%) (Auto) 1 % (0-3) 0 % (0-3) Neutrophils # (Auto) 6.8 x10^3/uL (1.8-7.7) 9.2 x10^3/uL (1.8-7.7) Lymphocytes # (Auto) 1.2 x10^3/uL (1.0-4.8) 1.4 x10^3/uL (1.0-4.8) Monocytes # (Auto) 0.6 x10^3/uL (0.0-1.1) 1.0 x10^3/uL (0.0-1.1) Eosinophils # (Auto) 0.0 x10^3/uL (0.0-0.7) 0.0 x10^3/uL (0.0-0.7) Basophils # (Auto) 0.1 x10^3/uL (0.0-0.2) 0.0 x10^3/uL (0.0-0.2) Urine Collection Type Unknown Urine Color Yellow Urine Clarity Clear Urine pH 6.0 (<5.0-8.0) Urine Specific [place] 1.015 (1.000-1.030) Urine Protein Negative mg/dL (NEG-TRACE) Urine Glucose (UA) Negative mg/dL (NEG) Urine Ketones (Stick) Negative mg/dL (NEG) Urine Blood Negative (NEG) Urine Nitrite Negative (NEG) Urine Bilirubin Negative (NEG) Urine Urobilinogen Dipstick 1.0 mg/dL (0.2 mg/dL) Urine Leukocyte Esterase Negative (NEG) Urine RBC Occ /HPF (0-2) Urine WBC Occ /HPF (0-4) Urine Squamous Epithelial Cells Occ /LPF Urine Bacteria 0 /HPF (0-FEW) Urine Hyaline Casts Occasional /HPF Urine Mucus Marked /LPF Sodium Level 140 mmol/L (136-145) 142 mmol/L (136-145) Potassium Level 3.9 mmol/L (3.5-5.1) 3.9 mmol/L (3.5-5.1) Chloride Level 103 mmol/L (98-107) 106 mmol/L (98-107) Carbon Dioxide Level 19 mmol/L (21-32) 24 mmol/L (21-32) Anion Gap 18 (6-14) 12 (6-14) Blood Urea Nitrogen 9 mg/dL (8-26) 7 mg/dL (8-26) Creatinine 1.0 mg/dL (0.7-1.3) 0.9 mg/dL (0.7-1.3) Estimated GFR (Cockcroft-Gault) 77.0 87.0 BUN/Creatinine Ratio 9 (6-20) 8 (6-20) Glucose Level 108 mg/dL (70-99) 132 mg/dL (70-99) Calcium Level 9.1 mg/dL (8.5-10.1) 8.9 mg/dL (8.5-10.1) Total Bilirubin 0.4 mg/dL (0.2-1.0) 0.7 mg/dL (0.2-1.0) Aspartate Amino Transf (AST/SGOT) 22 U/L (15-37) 14 U/L (15-37) Alanine Aminotransferase (ALT/SGPT) 19 U/L (16-63) 15 U/L (16-63) Alkaline Phosphatase 96 U/L (46-116) 84 U/L (46-116) Total Protein 7.3 g/dL (6.4-8.2) 6.4 g/dL (6.4-8.2) Albumin 3.5 g/dL (3.4-5.0) 3.2 g/dL (3.4-5.0) Albumin/Globulin Ratio 0.9 (1.0-1.7) 1.0 (1.0-1.7) Lipase 199 U/L (73-393) Images Images Exam: CT of abdomen and pelvis with contrast INDICATION: Abdominal pain TECHNIQUE: Sequential axial images through the abdomen and pelvis obtained following the administration of 70 mL of Omni 300 IV contrast. Sagittal and coronal reformatted images were reconstructed from the axial data and reviewed. Comparisons: 09/03/2016 FINDINGS: Heart size is normal. No pericardial effusion. Visualized lung bases are clear. No pleural effusion. Liver, spleen, pancreas, and adrenals are unremarkable. Gallbladder surgically absent. Kidneys demonstrate symmetric enhancement. No perinephric inflammation or hydronephrosis. No renal or ureteral calculi are identified. Bladder is distended and appears thin-walled. Uterus is not enlarged. No abnormal adnexal mass. Large and small bowel are unremarkable. Appendix is normal. No free intra-abdominal air or fluid. No obstruction. Abdominal aorta has a normal course and caliber. Abdominal vasculature is patent. No enlarged abdominal lymph nodes are identified. No suspicious osseous lesions or acute fractures. IMPRESSION: No acute process identified within the abdomen or pelvis. Exposure: One or more of the following in the visualized dose reduction techniques were utilized for this examination: 1. Automated exposure control 2. Adjustment of the MA and/or KV according to patient size 3. Use of iterative of reconstructive technique Electronically signed by: Mecca Heredia MD (06/30/2019 9:52 PM) [id number] DICTATED and SIGNED BY: MECCA HEREDIA MD DATE: 06/30/192151 VTE Prophylaxis Ordered VTE Prophylaxis Devices: No VTE Pharmacological Prophylaxi: Yes Assessment/Plan Assessment/Plan Impression: Intractable nausea and vomiting Large and small bowel are unremarkable. Appendix is normal. No free intra- abdominal air or fluid. No obstruction. BY CT 06/29 MORBID OBESITY HX GERD LABILE HTN PLAN ADMIT IV FLUID SUPPORT IV ZOFRAN 4 MG Q 4 HRS PRN DVT PROPHYLAXIS GI CONSULT IV HYDRALAZINE 10MG Q 4 HRS PRN BP SUPPORT GONZALES HONG MD Jul 01, 2019 11:04
[2019-07-01] MEDS ORDERED: ALBUTEROL SULFATE 2.5 MG/3 ML NEBU. NEB PRN (12:45)
[2019-07-01] MEDS ORDERED: DOCUSATE SODIUM 100 MG CAPSULE. PO PRN (12:45)
[2019-07-01] MEDS ORDERED: ACETAMINOPHEN 325 MG TABLET. PO PRN (12:45)
[2019-07-01] MEDS ORDERED: ZOLPIDEM 5 MG TABLET. PO PRN (12:45)
[2019-07-01] MEDS ORDERED: ONDANSETRON PF 4 MG/2 ML VIAL. IV PRN (12:45)
[2019-07-01] MEDS ORDERED: guaiFENesin ORAL 200 MG/10 ML LIQUID. PO PRN (12:45)
[2019-07-01] MEDS ORDERED: cloNIDine HCL 0.1 MG TABLET PO PRN (12:45)
[2019-07-01] MEDS ORDERED: 0.9 % SODIUM CHLORIDE 10 ML DISP.SYRIN. IV PRN (12:45)
[2019-07-01] MEDS ORDERED: LORazepam 0.5 MG TABLET PO PRN (12:45)
[2019-07-01] MEDS ORDERED: ENOXAPARIN 40 MG/0.4 ML SYRINGE. SQ SCH (13:00)
[2019-07-01] MEDS: IV NORMAL SALINE 1000ML BAG 1,000 ML IV SCH ×2 (13:18→20:37)
--- NOTE | 2019-07-01 13:28 | NUR ---
SS following for discharge planning. SS reviewed pt chart and discussed with RN. Pt is from home with family and is currently on room air. SS will continue to follow for discharge planning.
--- NOTE | 2019-07-01 14:07 | PDOC2 ---
GI CONSULT Reason For Consult: intractable vomiting HPI: HPI: 59 y/o male who we have seen in the past. Has had 4-5 episodes of mid abd pain w/ n/v requiring admission. Last occurred ~1 year ago, admitted to [facility]. Same issues now - mid abd pain began w/o precipitating events yesterday afternoon, then began vomiting. Pain is better and vomiting last occurred yesterday. Before I saw, nurse called - he requested to eat, clear liquid tray just delivered. H/o GERD w/ intermittent symptoms - taking omeprazole PRN. No dysphagia, hematemesis, diarrhea, melena, change in appetite, or weight loss. Constipated a couple weeks ago, took a laxative and then stooled a lot - noted some associated red blood which quickly resolved and has not recurred. Previous pathology from EGD and colonoscopy in 2008 showed chronic gastritis and possible lymphocytic colitis. Thinks last EGD done prior to gastric sleeve in 2015 (Dr. Martínez) - was supposed to follow-up last year but didn't. Reportedly normal colonoscopy w/ Dr. Griffin 1-2 years ago. S/p cholecystectomy. No liver, pancreas, or PUD history. PRN Advil for ankle pain, ?also Xarelto. PMH: PMH: PE, HTN, HLD, GERD, OA, gout, ROYAL, depression gastric sleeve, cholecystectomy, vasectomy, ankle surgeries, thyroidectomy (adenoma) FH: Family History: CAD Social History: Smoke: No ALCOHOL: none Drugs: None ROS: GEN: +fever 99.9 HEENT: Denies blurred vision, sore throat CV: Denies chest pain RESP: Denies shortness of air, cough GI: Per HPI : Denies hematuria, dysuria ENDO: Denies weight changes NEURO: Denies confusion, dizziness MSK: Denies weakness, joint pain/swelling SKIN: Denies jaundice, pruritus Vitals: Vitals: Vital Signs Date Time Temp Pulse Resp B/P (MAP) Pulse Ox O2 Delivery O2 Flow Rate FiO2 07/01/19 11:00 98.3 66 14 143/90 (107) 98 Room Air 98.3 Labs: Labs: Laboratory Tests Test 06/30/19 19:25 07/01/19 04:00 White Blood Count 8.7 x10^3/uL (4.0-11.0) 11.6 x10^3/uL (4.0-11.0) Red Blood Count 5.40 x10^6/uL (4.30-5.70) 4.89 x10^6/uL (4.30-5.70) Hemoglobin 16.2 g/dL (13.0-17.5) 14.4 g/dL (13.0-17.5) Hematocrit 47.3 % (39.0-53.0) 43.2 % (39.0-53.0) Mean Corpuscular Volume 88 fL (79-100) 88 fL (79-100) Mean Corpuscular Hemoglobin 30 pg (25-35) 30 pg (25-35) Mean Corpuscular Hemoglobin Concent 34 g/dL (31-37) 33 g/dL (31-37) Red Cell Distribution Width 16.3 % (11.5-14.5) 16.6 % (11.5-14.5) Platelet Count 308 x10^3/uL (140-400) 307 x10^3/uL (140-400) Neutrophils (%) (Auto) 79 % (31-73) 79 % (31-73) Lymphocytes (%) (Auto) 14 % (24-48) 13 % (24-48) Monocytes (%) (Auto) 7 % (0-9) 8 % (0-9) Eosinophils (%) (Auto) 0 % (0-3) 0 % (0-3) Basophils (%) (Auto) 1 % (0-3) 0 % (0-3) Neutrophils # (Auto) 6.8 x10^3/uL (1.8-7.7) 9.2 x10^3/uL (1.8-7.7) Lymphocytes # (Auto) 1.2 x10^3/uL (1.0-4.8) 1.4 x10^3/uL (1.0-4.8) Monocytes # (Auto) 0.6 x10^3/uL (0.0-1.1) 1.0 x10^3/uL (0.0-1.1) Eosinophils # (Auto) 0.0 x10^3/uL (0.0-0.7) 0.0 x10^3/uL (0.0-0.7) Basophils # (Auto) 0.1 x10^3/uL (0.0-0.2) 0.0 x10^3/uL (0.0-0.2) Urine Collection Type Unknown Urine Color Yellow Urine Clarity Clear Urine pH 6.0 (<5.0-8.0) Urine Specific [place] 1.015 (1.000-1.030) Urine Protein Negative mg/dL (NEG-TRACE) Urine Glucose (UA) Negative mg/dL (NEG) Urine Ketones (Stick) Negative mg/dL (NEG) Urine Blood Negative (NEG) Urine Nitrite Negative (NEG) Urine Bilirubin Negative (NEG) Urine Urobilinogen Dipstick 1.0 mg/dL (0.2 mg/dL) Urine Leukocyte Esterase Negative (NEG) Urine RBC Occ /HPF (0-2) Urine WBC Occ /HPF (0-4) Urine Squamous Epithelial Cells Occ /LPF Urine Bacteria 0 /HPF (0-FEW) Urine Hyaline Casts Occasional /HPF Urine Mucus Marked /LPF Sodium Level 140 mmol/L (136-145) 142 mmol/L (136-145) Potassium Level 3.9 mmol/L (3.5-5.1) 3.9 mmol/L (3.5-5.1) Chloride Level 103 mmol/L (98-107) 106 mmol/L (98-107) Carbon Dioxide Level 19 mmol/L (21-32) 24 mmol/L (21-32) Anion Gap 18 (6-14) 12 (6-14) Blood Urea Nitrogen 9 mg/dL (8-26) 7 mg/dL (8-26) Creatinine 1.0 mg/dL (0.7-1.3) 0.9 mg/dL (0.7-1.3) Estimated GFR (Cockcroft-Gault) 77.0 87.0 BUN/Creatinine Ratio 9 (6-20) 8 (6-20) Glucose Level 108 mg/dL (70-99) 132 mg/dL (70-99) Calcium Level 9.1 mg/dL (8.5-10.1) 8.9 mg/dL (8.5-10.1) Total Bilirubin 0.4 mg/dL (0.2-1.0) 0.7 mg/dL (0.2-1.0) Aspartate Amino Transf (AST/SGOT) 22 U/L (15-37) 14 U/L (15-37) Alanine Aminotransferase (ALT/SGPT) 19 U/L (16-63) 15 U/L (16-63) Alkaline Phosphatase 96 U/L (46-116) 84 U/L (46-116) Total Protein 7.3 g/dL (6.4-8.2) 6.4 g/dL (6.4-8.2) Albumin 3.5 g/dL (3.4-5.0) 3.2 g/dL (3.4-5.0) Albumin/Globulin Ratio 0.9 (1.0-1.7) 1.0 (1.0-1.7) Lipase 199 U/L (73-393) Allergies: Coded Allergies: No Known Drug Allergies (Unverified , 08/14/16) Medications: Current Medications Medications (Trade) Dose Ordered Sig/Nicolas Route PRN Reason Start Time Stop Time Status Last Admin Dose Admin Ondansetron HCl (Zofran) 8 mg 1X ONCE IVP 06/30/19 19:45 06/30/19 19:46 DC 06/30/19 19:55 Famotidine (Pepcid Vial) 20 mg 1X ONCE IVP 06/30/19 19:45 06/30/19 19:46 DC 06/30/19 19:55 Haloperidol Lactate (Haldol Inj) 2.5 mg 1X ONCE IVP 06/30/19 20:30 06/30/19 20:31 DC 06/30/19 20:38 Morphine Sulfate (Morphine Sulfate) 4 mg 1X ONCE IV 06/30/19 21:30 06/30/19 21:31 DC 06/30/19 21:57 Iohexol (Omnipaque 300 Mg/ml) 75 ml 1X ONCE IV 06/30/19 21:30 06/30/19 21:31 DC 06/30/19 21:39 Haloperidol Lactate (Haldol Inj) 2.5 mg 1X ONCE IVP 06/30/19 23:00 06/30/19 23:01 DC 06/30/19 23:13 Morphine Sulfate (Morphine Sulfate) 2 mg PRN Q2HR PRN IV PAIN 06/30/19 23:00 07/01/19 22:59 07/01/19 03:10 Ondansetron HCl (Zofran) 4 mg Q4HRS IVP 07/01/19 00:00 07/01/19 13:17 Famotidine (Pepcid Vial) 20 mg BID IVP 07/01/19 09:00 07/01/19 08:44 Potassium Chloride/Dextrose/ Sod Cl 1,000 ml @ 125 mls/hr 1X ONCE IV 06/30/19 23:00 07/01/19 06:59 DC 06/30/19 23:13 Sodium Chloride 1,000 ml @ 140 mls/hr Q7H9M IV 07/01/19 12:34 07/01/19 13:18 Imaging: Imaging: CT A/P IMPRESSION: No acute process identified within the abdomen or pelvis. PE: GEN: NAD HEENT: Atraumatic, PERRL LUNGS: CTAB HEART: RRR ABD: NABS, S/ND/NT EXTREMITY: No edema SKIN: No rashes, no jaundice NEURO/PSYCH: A & O 3 A/P: A/P: N/v, abd pain GERD S/p gastric sleeve CRC screen - UTD S/p cholecystectomy NSAID use -- Clears, ADAT. If tolerates, consider DC soon. Resume PPI - discussed in detail. JENNIFER WHITE Jul 01, 2019 14:07
[2019-07-01] MEDS ORDERED: CALCIUM CARBONATE 500 MG TAB.CHEW PO PRN (14:15)
[2019-07-01] MEDS: PANTOPRAZOLE IV PUSH 40 MG VIAL. IVP SCH (16:40)
[2019-07-01] MEDS ORDERED: RIVAROXABAN 10 MG TABLET. PO SCH (17:00)
[2019-07-02] MEDS: ONDANSETRON PF 4 MG/2 ML VIAL. IVP SCH ×4 (01:26→12:00)
[2019-07-02 03:10] VITALS: BP 142/77
[2019-07-02] MEDS: IV NORMAL SALINE 1000ML BAG 1,000 ML IV SCH (03:53)
[2019-07-02] MEDS: MORPHINE SULFATE 2 MG/ML VIAL. IV PRN ×2 (04:57→09:14)
[2019-07-02 05:08] LABS: BASO # 0.1 x10^3/uL (0.0-0.2); BASO % 1 % (0-3); EOS # 0.1 x10^3/uL (0.0-0.7); EOS % 1 % (0-3); HEMATOCRIT 39.3 % (39.0-53.0); HEMOGLOBIN 13.4 g/dL (13.0-17.5); LYMPH # 3.4 x10^3/uL (1.0-4.8); LYMPH % 40 % (24-48); MEAN CORPUSCULAR HEMOGLOBIN 30 pg (25-35); MEAN CORPUSCULAR HGB CONC 34 g/dL (31-37); MEAN CORPUSCULAR VOLUME 89 fL (79-100); MONO # 0.9 x10^3/uL (0.0-1.1); MONO % 10 % (0-9); NEUT # 4.2 x10^3/uL (1.8-7.7); NEUT % 48 % (31-73); PLATELET COUNT 241 x10^3/uL (140-400); RED BLOOD COUNT 4.43 x10^6/uL (4.30-5.70); RED CELL DISTRIBUTION WIDTH 16.3 % (11.5-14.5); WHITE BLOOD COUNT 8.6 x10^3/uL (4.0-11.0)
[2019-07-02 05:19] LABS: ALBUMIN 2.6 g/dL (3.4-5.0); ALBUMIN/GLOBULIN RATIO 0.9 (1.0-1.7); CALCIUM 8.2 mg/dL (8.5-10.1); CREATININE 0.9 mg/dL (0.7-1.3); POTASSIUM 3.8 mmol/L (3.5-5.1); TOTAL BILIRUBIN 0.7 mg/dL (0.2-1.0); TOTAL PROTEIN 5.4 g/dL (6.4-8.2)
[2019-07-02] MEDS ORDERED: LEVOTHYROXINE 100 MCG TABLET PO SCH (06:00)
[2019-07-02 07:12] VITALS: BP 146/87
--- NOTE | 2019-07-02 08:04 | PDOC ---
PROGRESS NOTES History of Present Illness History of Present Illness VTE Prophylaxis Ordered VTE Prophylaxis Devices: No VTE Pharmacological Prophylaxi: Yes DISCHARGE DX Assessment/Plan Impression: Intractable nausea and vomiting Large and small bowel are unremarkable. Appendix is normal. No free intra- abdominal air or fluid. No obstruction. BY CT 06/29 MORBID OBESITY HX GERD LABILE HTN PLAN ADMIT IV FLUID SUPPORT IV ZOFRAN 4 MG Q 4 HRS PRN DVT PROPHYLAXIS GI CONSULT IV HYDRALAZINE 10MG Q 4 HRS PRN BP SUPPORT D/C PLANNING 28 MIN Vitals Vitals Vital Signs Date Time Temp Pulse Resp B/P (MAP) Pulse Ox O2 Delivery O2 Flow Rate FiO2 07/02/19 03:10 98.6 67 18 142/77 (98) 96 Room Air 98.6 Physical Exam General: Alert, Oriented X3, Cooperative, No acute distress Heart: Regular rate, Normal S1 Lungs: Clear, Other Abdomen: Normal bowel sounds, Soft, No hepatosplenomegaly Extremities: No cyanosis, No edema Skin: No rashes, No significant lesion Labs LABS Laboratory Tests Test 07/02/19 04:48 White Blood Count 8.6 x10^3/uL (4.0-11.0) Red Blood Count 4.43 x10^6/uL (4.30-5.70) Hemoglobin 13.4 g/dL (13.0-17.5) Hematocrit 39.3 % (39.0-53.0) Mean Corpuscular Volume 89 fL (79-100) Mean Corpuscular Hemoglobin 30 pg (25-35) Mean Corpuscular Hemoglobin Concent 34 g/dL (31-37) Red Cell Distribution Width 16.3 % (11.5-14.5) Platelet Count 241 x10^3/uL (140-400) Neutrophils (%) (Auto) 48 % (31-73) Lymphocytes (%) (Auto) 40 % (24-48) Monocytes (%) (Auto) 10 % (0-9) Eosinophils (%) (Auto) 1 % (0-3) Basophils (%) (Auto) 1 % (0-3) Neutrophils # (Auto) 4.2 x10^3/uL (1.8-7.7) Lymphocytes # (Auto) 3.4 x10^3/uL (1.0-4.8) Monocytes # (Auto) 0.9 x10^3/uL (0.0-1.1) Eosinophils # (Auto) 0.1 x10^3/uL (0.0-0.7) Basophils # (Auto) 0.1 x10^3/uL (0.0-0.2) Sodium Level 144 mmol/L (136-145) Potassium Level 3.8 mmol/L (3.5-5.1) Chloride Level 108 mmol/L (98-107) Carbon Dioxide Level 23 mmol/L (21-32) Anion Gap 13 (6-14) Blood Urea Nitrogen 11 mg/dL (8-26) Creatinine 0.9 mg/dL (0.7-1.3) Estimated GFR (Cockcroft-Gault) 87.0 BUN/Creatinine Ratio 12 (6-20) Glucose Level 94 mg/dL (70-99) Calcium Level 8.2 mg/dL (8.5-10.1) Total Bilirubin 0.7 mg/dL (0.2-1.0) Aspartate Amino Transf (AST/SGOT) 12 U/L (15-37) Alanine Aminotransferase (ALT/SGPT) 13 U/L (16-63) Alkaline Phosphatase 74 U/L (46-116) Total Protein 5.4 g/dL (6.4-8.2) Albumin 2.6 g/dL (3.4-5.0) Albumin/Globulin Ratio 0.9 (1.0-1.7) Comment Review of Relevant I have reviewed the following items robin (where applicable) has been applied. Labs Laboratory Tests Test 06/30/19 19:25 07/01/19 04:00 07/02/19 04:48 White Blood Count 8.7 x10^3/uL (4.0-11.0) 11.6 x10^3/uL (4.0-11.0) 8.6 x10^3/uL (4.0-11.0) Red Blood Count 5.40 x10^6/uL (4.30-5.70) 4.89 x10^6/uL (4.30-5.70) 4.43 x10^6/uL (4.30-5.70) Hemoglobin 16.2 g/dL (13.0-17.5) 14.4 g/dL (13.0-17.5) 13.4 g/dL (13.0-17.5) Hematocrit 47.3 % (39.0-53.0) 43.2 % (39.0-53.0) 39.3 % (39.0-53.0) Mean Corpuscular Volume 88 fL (79-100) 88 fL (79-100) 89 fL (79-100) Mean Corpuscular Hemoglobin 30 pg (25-35) 30 pg (25-35) 30 pg (25-35) Mean Corpuscular Hemoglobin Concent 34 g/dL (31-37) 33 g/dL (31-37) 34 g/dL (31-37) Red Cell Distribution Width 16.3 % (11.5-14.5) 16.6 % (11.5-14.5) 16.3 % (11.5-14.5) Platelet Count 308 x10^3/uL (140-400) 307 x10^3/uL (140-400) 241 x10^3/uL (140-400) Neutrophils (%) (Auto) 79 % (31-73) 79 % (31-73) 48 % (31-73) Lymphocytes (%) (Auto) 14 % (24-48) 13 % (24-48) 40 % (24-48) Monocytes (%) (Auto) 7 % (0-9) 8 % (0-9) 10 % (0-9) Eosinophils (%) (Auto) 0 % (0-3) 0 % (0-3) 1 % (0-3) Basophils (%) (Auto) 1 % (0-3) 0 % (0-3) 1 % (0-3) Neutrophils # (Auto) 6.8 x10^3/uL (1.8-7.7) 9.2 x10^3/uL (1.8-7.7) 4.2 x10^3/uL (1.8-7.7) Lymphocytes # (Auto) 1.2 x10^3/uL (1.0-4.8) 1.4 x10^3/uL (1.0-4.8) 3.4 x10^3/uL (1.0-4.8) Monocytes # (Auto) 0.6 x10^3/uL (0.0-1.1) 1.0 x10^3/uL (0.0-1.1) 0.9 x10^3/uL (0.0-1.1) Eosinophils # (Auto) 0.0 x10^3/uL (0.0-0.7) 0.0 x10^3/uL (0.0-0.7) 0.1 x10^3/uL (0.0-0.7) Basophils # (Auto) 0.1 x10^3/uL (0.0-0.2) 0.0 x10^3/uL (0.0-0.2) 0.1 x10^3/uL (0.0-0.2) Urine Collection Type Unknown Urine Color Yellow Urine Clarity Clear Urine pH 6.0 (<5.0-8.0) Urine Specific [place] 1.015 (1.000-1.030) Urine Protein Negative mg/dL (NEG-TRACE) Urine Glucose (UA) Negative mg/dL (NEG) Urine Ketones (Stick) Negative mg/dL (NEG) Urine Blood Negative (NEG) Urine Nitrite Negative (NEG) Urine Bilirubin Negative (NEG) Urine Urobilinogen Dipstick 1.0 mg/dL (0.2 mg/dL) Urine Leukocyte Esterase Negative (NEG) Urine RBC Occ /HPF (0-2) Urine WBC Occ /HPF (0-4) Urine Squamous Epithelial Cells Occ /LPF Urine Bacteria 0 /HPF (0-FEW) Urine Hyaline Casts Occasional /HPF Urine Mucus Marked /LPF Sodium Level 140 mmol/L (136-145) 142 mmol/L (136-145) 144 mmol/L (136-145) Potassium Level 3.9 mmol/L (3.5-5.1) 3.9 mmol/L (3.5-5.1) 3.8 mmol/L (3.5-5.1) Chloride Level 103 mmol/L (98-107) 106 mmol/L (98-107) 108 mmol/L (98-107) Carbon Dioxide Level 19 mmol/L (21-32) 24 mmol/L (21-32) 23 mmol/L (21-32) Anion Gap 18 (6-14) 12 (6-14) 13 (6-14) Blood Urea Nitrogen 9 mg/dL (8-26) 7 mg/dL (8-26) 11 mg/dL (8-26) Creatinine 1.0 mg/dL (0.7-1.3) 0.9 mg/dL (0.7-1.3) 0.9 mg/dL (0.7-1.3) Estimated GFR (Cockcroft-Gault) 77.0 87.0 87.0 BUN/Creatinine Ratio 9 (6-20) 8 (6-20) 12 (6-20) Glucose Level 108 mg/dL (70-99) 132 mg/dL (70-99) 94 mg/dL (70-99) Calcium Level 9.1 mg/dL (8.5-10.1) 8.9 mg/dL (8.5-10.1) 8.2 mg/dL (8.5-10.1) Total Bilirubin 0.4 mg/dL (0.2-1.0) 0.7 mg/dL (0.2-1.0) 0.7 mg/dL (0.2-1.0) Aspartate Amino Transf (AST/SGOT) 22 U/L (15-37) 14 U/L (15-37) 12 U/L (15-37) Alanine Aminotransferase (ALT/SGPT) 19 U/L (16-63) 15 U/L (16-63) 13 U/L (16-63) Alkaline Phosphatase 96 U/L (46-116) 84 U/L (46-116) 74 U/L (46-116) Total Protein 7.3 g/dL (6.4-8.2) 6.4 g/dL (6.4-8.2) 5.4 g/dL (6.4-8.2) Albumin 3.5 g/dL (3.4-5.0) 3.2 g/dL (3.4-5.0) 2.6 g/dL (3.4-5.0) Albumin/Globulin Ratio 0.9 (1.0-1.7) 1.0 (1.0-1.7) 0.9 (1.0-1.7) Lipase 199 U/L (73-393) Laboratory Tests Test 07/02/19 04:48 White Blood Count 8.6 x10^3/uL (4.0-11.0) Red Blood Count 4.43 x10^6/uL (4.30-5.70) Hemoglobin 13.4 g/dL (13.0-17.5) Hematocrit 39.3 % (39.0-53.0) Mean Corpuscular Volume 89 fL (79-100) Mean Corpuscular Hemoglobin 30 pg (25-35) Mean Corpuscular Hemoglobin Concent 34 g/dL (31-37) Red Cell Distribution Width 16.3 % (11.5-14.5) Platelet Count 241 x10^3/uL (140-400) Neutrophils (%) (Auto) 48 % (31-73) Lymphocytes (%) (Auto) 40 % (24-48) Monocytes (%) (Auto) 10 % (0-9) Eosinophils (%) (Auto) 1 % (0-3) Basophils (%) (Auto) 1 % (0-3) Neutrophils # (Auto) 4.2 x10^3/uL (1.8-7.7) Lymphocytes # (Auto) 3.4 x10^3/uL (1.0-4.8) Monocytes # (Auto) 0.9 x10^3/uL (0.0-1.1) Eosinophils # (Auto) 0.1 x10^3/uL (0.0-0.7) Basophils # (Auto) 0.1 x10^3/uL (0.0-0.2) Sodium Level 144 mmol/L (136-145) Potassium Level 3.8 mmol/L (3.5-5.1) Chloride Level 108 mmol/L (98-107) Carbon Dioxide Level 23 mmol/L (21-32) Anion Gap 13 (6-14) Blood Urea Nitrogen 11 mg/dL (8-26) Creatinine 0.9 mg/dL (0.7-1.3) Estimated GFR (Cockcroft-Gault) 87.0 BUN/Creatinine Ratio 12 (6-20) Glucose Level 94 mg/dL (70-99) Calcium Level 8.2 mg/dL (8.5-10.1) Total Bilirubin 0.7 mg/dL (0.2-1.0) Aspartate Amino Transf (AST/SGOT) 12 U/L (15-37) Alanine Aminotransferase (ALT/SGPT) 13 U/L (16-63) Alkaline Phosphatase 74 U/L (46-116) Total Protein 5.4 g/dL (6.4-8.2) Albumin 2.6 g/dL (3.4-5.0) Albumin/Globulin Ratio 0.9 (1.0-1.7) Medications Current Medications Ondansetron HCl (Zofran) 8 mg 1X ONCE IVP Last administered on 06/30/19at 19:55; Start 06/30/19 at 19:45; Stop 06/30/19 at 19:46; Status DC Famotidine (Pepcid Vial) 20 mg 1X ONCE IVP Last administered on 06/30/19at 19:55; Start 06/30/19 at 19:45; Stop 06/30/19 at 19:46; Status DC Haloperidol Lactate (Haldol Inj) 2.5 mg 1X ONCE IVP Last administered on 06/30/19at 20:38; Start 06/30/19 at 20:30; Stop 06/30/19 at 20:31; Status DC Morphine Sulfate (Morphine Sulfate) 4 mg 1X ONCE IV Last administered on 06/30/19at 21:57; Start 06/30/19 at 21:30; Stop 06/30/19 at 21:31; Status DC Iohexol (Omnipaque 300 Mg/ml) 75 ml 1X ONCE IV Last administered on 06/30/19at 21:39; Start 06/30/19 at 21:30; Stop 06/30/19 at 21:31; Status DC Info (CONTRAST GIVEN -- Rx MONITORING) 1 each PRN DAILY PRN MC SEE COMMENTS; Start 06/30/19 at 21:30; Stop 07/02/19 at 21:29 Haloperidol Lactate (Haldol Inj) 2.5 mg 1X ONCE IVP Last administered on 06/30/19at 23:13; Start 06/30/19 at 23:00; Stop 06/30/19 at 23:01; Status DC Ondansetron HCl (Zofran) 4 mg PRN Q8HRS PRN IV NAUSEA/VOMITING; Start 06/30/19 at 23:00; Stop 07/01/19 at 22:59; Status DC Morphine Sulfate (Morphine Sulfate) 2 mg PRN Q2HR PRN IV PAIN Last administered on 07/01/19at 03:10; Start 06/30/19 at 23:00; Stop 07/01/19 at 22:59; Status DC Haloperidol Lactate (Haldol Inj) 2.5 mg 1X ONCE IVP ; Start 06/30/19 at 23:00; Stop 06/30/19 at 23:01; Status UNV Ondansetron HCl (Zofran) 4 mg Q4HRS IVP Last administered on 07/01/19at 20:37; Start 07/01/19 at 00:00 Famotidine (Pepcid Vial) 20 mg BID IVP Last administered on 07/01/19at 08:44; Start 07/01/19 at 09:00; Stop 07/01/19 at 14:09; Status DC Potassium Chloride/Dextrose/ Sod Cl 1,000 ml @ 125 mls/hr 1X ONCE IV Last administered on 06/30/19at 23:13; Start 06/30/19 at 23:00; Stop 07/01/19 at 06:59; Status DC Sodium Chloride (Normal Saline Flush) 3 ml QSHIFT PRN IV AFTER MEDS AND BLOOD DRAWS; Start 07/01/19 at 12:45 Sodium Chloride 1,000 ml @ 140 mls/hr Q7H9M IV Last administered on 07/02/19at 03:53; Start 07/01/19 at 12:34 Ondansetron HCl (Zofran) 4 mg PRN Q4HRS PRN IV NAUSEA/VOMITING; Start 07/01/19 at 12:45 Zolpidem Tartrate (Ambien) 5 mg PRN QHS PRN PO INSOMNIA Last administered on 07/01/19at 23:41; Start 07/01/19 at 12:45 Acetaminophen (Tylenol) 650 mg PRN Q4HRS PRN PO TEMP OVER 100.4F OR MILD PAIN; Start 07/01/19 at 12:45 Clonidine HCl (Catapres) 0.1 mg PRN Q6HRS PRN PO SBP>160 OR DBP>90; Start 07/01/19 at 12:45 Docusate Sodium (Colace) 100 mg PRN BID PRN PO CONSTIPATION; Start 07/01/19 at 12:45 Albuterol Sulfate (Ventolin Neb Soln) 2.5 mg PRN Q4HRS PRN NEB SHORTNESS OF BREATH; Start 07/01/19 at 12:45 Guaifenesin (Robitussin) 200 mg PRN Q4HRS PRN PO COUGH; Start 07/01/19 at 12:45 Lorazepam (Ativan) 0.5 mg PRN Q4HRS PRN PO ANXIETY / AGITATION; Start 07/01/19 at 12:45 Enoxaparin Sodium (Lovenox 40mg Syringe) 40 mg Q24H SQ ; Start 07/01/19 at 13:00; Stop 07/01/19 at 12:42; Status DC Rivaroxaban (Xarelto) 20 mg DAILYBFRSUP PO Last administered on 07/01/19at 16:39; Start 07/01/19 at 17:00 Levothyroxine Sodium (Synthroid) 200 mcg DAILY06 PO Last administered on 07/02/19at 04:58; Start 07/02/19 at 06:00 Pantoprazole Sodium (PROTONIX VIAL for IV PUSH) 40 mg DAILYAC IVP Last administered on 07/01/19at 16:40; Start 07/01/19 at 16:30 Calcium Carbonate/ Glycine (Tums) 500 mg PRN AFTMEALHC PRN PO INDIGESTION; Start 07/01/19 at 14:15 Morphine Sulfate (Morphine Sulfate) 2 mg PRN Q2HR PRN IV PAIN Last administered on 07/02/19at 04:57; Start 07/01/19 at 23:30 Active Scripts Active Reported Levothyroxine Sodium 200 Mcg Tablet 200 Mcg PO DAILYAC Xarelto (Rivaroxaban) 10 Mg Tablet 20 Mg PO DAILY Vitals/I & O Vital Sign - Last 24 Hours 07/01/19 07/01/19 07/01/19 07/01/19 11:00 15:00 17:18 19:10 Temp 98.3 97.9 98.7 98.3 97.9 98.7 Pulse 66 71 84 Resp 14 20 18 B/P (MAP) 143/90 (107) 147/89 (108) 147/85 (105) Pulse Ox 98 97 98 96 O2 Delivery Room Air Room Air Room Air Room Air 07/01/19 07/01/19 07/02/19 20:00 23:10 03:10 Temp 98.4 98.6 98.4 98.6 Pulse 92 67 Resp 18 18 B/P (MAP) 140/75 (96) 142/77 (98) Pulse Ox 96 96 O2 Delivery Room Air Room Air Room Air Intake and Output 07/01/19 07/01/19 07/02/19 15:00 23:00 07:00 Intake Total 500 ml 800 ml 0 ml Balance 500 ml 800 ml 0 ml GONZALES HONG MD Jul 02, 2019 08:04
[2019-07-02] MEDS: PANTOPRAZOLE IV PUSH 40 MG VIAL. IVP SCH (09:13)
[2019-07-02] MEDS ORDERED: ANTI-COAG MONITOR BY PHARMACY. MC PRN (10:15)
[2019-07-02 11:12] VITALS: BP 135/89
--- NOTE | 2019-07-02 11:27 | PDOC ---
Subjective: Subjective: Had some eggs this morning, no n/v. Still has abd pain off and on but feels he could manage at home. Objective: Vital Signs: Vital Signs Date Time Temp Pulse Resp B/P (MAP) Pulse Ox O2 Delivery O2 Flow Rate FiO2 07/02/19 11:12 98.1 69 16 135/89 (104) 96 Room Air 98.1 Labs: Laboratory Tests Test 07/02/19 04:48 White Blood Count 8.6 x10^3/uL Red Blood Count 4.43 x10^6/uL Hemoglobin 13.4 g/dL Hematocrit 39.3 % Mean Corpuscular Volume 89 fL Mean Corpuscular Hemoglobin 30 pg Mean Corpuscular Hemoglobin Concent 34 g/dL Red Cell Distribution Width 16.3 % Platelet Count 241 x10^3/uL Neutrophils (%) (Auto) 48 % Lymphocytes (%) (Auto) 40 % Monocytes (%) (Auto) 10 % Eosinophils (%) (Auto) 1 % Basophils (%) (Auto) 1 % Neutrophils # (Auto) 4.2 x10^3/uL Lymphocytes # (Auto) 3.4 x10^3/uL Monocytes # (Auto) 0.9 x10^3/uL Eosinophils # (Auto) 0.1 x10^3/uL Basophils # (Auto) 0.1 x10^3/uL Sodium Level 144 mmol/L Potassium Level 3.8 mmol/L Chloride Level 108 mmol/L Carbon Dioxide Level 23 mmol/L Anion Gap 13 Blood Urea Nitrogen 11 mg/dL Creatinine 0.9 mg/dL Estimated GFR (Cockcroft-Gault) 87.0 BUN/Creatinine Ratio 12 Glucose Level 94 mg/dL Calcium Level 8.2 mg/dL Total Bilirubin 0.7 mg/dL Aspartate Amino Transf (AST/SGOT) 12 U/L Alanine Aminotransferase (ALT/SGPT) 13 U/L Alkaline Phosphatase 74 U/L Total Protein 5.4 g/dL Albumin 2.6 g/dL Albumin/Globulin Ratio 0.9 PE: GEN: NAD LUNGS: CTAB HEART: RRR ABD: S/ND/NT NEURO/PSYCH: A & O 3 A/P: N/v, abd pain - better -- Okay to DC on PPI for h/o GERD per GI. Hemodynamically unstable?: No Is patient in severe pain?: No Is NPO status required?: No JAZMINE-BRANINE,JENNIFER PA Jul 02, 2019 11:27
--- NOTE | 2019-07-02 12:25 | PDOC3 ---
Discharge Summary Date of Admission: Jul 01, 2019 Date of Discharge: Jul 02, 2019 Follow-Up: 3-5 days Admitting Diagnosis comment: DISCHARGE DX Assessment/Plan Impression: Intractable nausea and vomiting Large and small bowel are unremarkable. Appendix is normal. No free intra- abdominal air or fluid. No obstruction. BY CT 06/29 MORBID OBESITY HX GERD LABILE HTN PLAN ADMIT IV FLUID SUPPORT IV ZOFRAN 4 MG Q 4 HRS PRN DVT PROPHYLAXIS GI CONSULT IV HYDRALAZINE 10MG Q 4 HRS PRN BP SUPPORT D/C PLANNING 28 MIN Vitals Vitals Vital Signs Date Time Temp Pulse Resp B/P (MAP) Pulse Ox O2 Delivery O2 Flow Rate FiO2 07/02/19 03:10 98.6 67 18 142/77 (98) 96 Room Air 98.6 Physical Exam General: Alert, Oriented X3, Cooperative, No acute distress Heart: Regular rate, Normal S1 Lungs: Clear, Other Abdomen: Normal bowel sounds, Soft, No hepatosplenomegaly Extremities: No cyanosis, No edema Skin: No rashes, No significant lesion Brief Hospital Course Mr. Garza is a 59 old [sex] who presented with [INTRACTABLE VOMITING ] CONDITION AT DISCHARGE: Improved Discharge Medications Current Medications Ondansetron HCl (Zofran) 8 mg 1X ONCE IVP Last administered on 06/30/19at 19:55; Start 06/30/19 at 19:45; Stop 06/30/19 at 19:46; Status DC Famotidine (Pepcid Vial) 20 mg 1X ONCE IVP Last administered on 06/30/19 19 :55; Start 06/30/19 at 19:45; Stop 06/30/19 at 19:46; Status DC Haloperidol Lactate (Haldol Inj) 2.5 mg 1X ONCE IVP Last administered on 06/30/19at 20:38; Start 06/30/19 at 20:30; Stop 06/30/19 at 20:31; Status DC Morphine Sulfate (Morphine Sulfate) 4 mg 1X ONCE IV Last administered on 06/30/19at 21:57; Start 06/30/19 at 21:30; Stop 06/30/19 at 21:31; Status DC Iohexol (Omnipaque 300 Mg/ml) 75 ml 1X ONCE IV Last administered on 06/30/19at 21:39; Start 06/30/19 at 21:30; Stop 06/30/19 at 21:31; Status DC Info (CONTRAST GIVEN -- Rx MONITORING) 1 each PRN DAILY PRN MC SEE COMMENTS; Start 06/30/19 at 21:30; Stop 07/02/19 at 21:29 Haloperidol Lactate (Haldol Inj) 2.5 mg 1X ONCE IVP Last administered on 06/30/19at 23:13; Start 06/30/19 at 23:00; Stop 06/30/19 at 23:01; Status DC Ondansetron HCl (Zofran) 4 mg PRN Q8HRS PRN IV NAUSEA/VOMITING; Start 06/30/19 at 23:00; Stop 07/01/19 at 22:59; Status DC Morphine Sulfate (Morphine Sulfate) 2 mg PRN Q2HR PRN IV PAIN Last administered on 07/01/19at 03:10; Start 06/30/19 at 23:00; Stop 07/01/19 at 22:59; Status DC Haloperidol Lactate (Haldol Inj) 2.5 mg 1X ONCE IVP ; Start 06/30/19 at 23:00; Stop 06/30/19 at 23:01; Status UNV Ondansetron HCl (Zofran) 4 mg Q4HRS IVP Last administered on 07/01/19at 20:37; Start 07/01/19 at 00:00 Famotidine (Pepcid Vial) 20 mg BID IVP Last administered on 07/01/19at 08:44; Start 07/01/19 at 09:00; Stop 07/01/19 at 14:09; Status DC Potassium Chloride/Dextrose/ Sod Cl 1,000 ml @ 125 mls/hr 1X ONCE IV Last administered on 06/30/19at 23:13; Start 06/30/19 at 23:00; Stop 07/01/19 at 06:59; Status DC Sodium Chloride (Normal Saline Flush) 3 ml QSHIFT PRN IV AFTER MEDS AND BLOOD DRAWS; Start 07/01/19 at 12:45 Sodium Chloride 1,000 ml @ 140 mls/hr Q7H9M IV Last administered on 07/02/19at 03:53; Start 07/01/19 at 12:34 Ondansetron HCl (Zofran) 4 mg PRN Q4HRS PRN IV NAUSEA/VOMITING; Start 07/01/19 at 12:45 Zolpidem Tartrate (Ambien) 5 mg PRN QHS PRN PO INSOMNIA Last administered on 07/01/19at 23:41; Start 07/01/19 at 12:45 Acetaminophen (Tylenol) 650 mg PRN Q4HRS PRN PO TEMP OVER 100.4F OR MILD PAIN; Start 07/01/19 at 12:45 Clonidine HCl (Catapres) 0.1 mg PRN Q6HRS PRN PO SBP>160 OR DBP>90; Start 07/01/19 at 12:45 Docusate Sodium (Colace) 100 mg PRN BID PRN PO CONSTIPATION; Start 07/01/19 at 12:45 Albuterol Sulfate (Ventolin Neb Soln) 2.5 mg PRN Q4HRS PRN NEB SHORTNESS OF BREATH; Start 07/01/19 at 12:45 Guaifenesin (Robitussin) 200 mg PRN Q4HRS PRN PO COUGH; Start 07/01/19 at 12:45 Lorazepam (Ativan) 0.5 mg PRN Q4HRS PRN PO ANXIETY / AGITATION; Start 07/01/19 at 12:45 Enoxaparin Sodium (Lovenox 40mg Syringe) 40 mg Q24H SQ ; Start 07/01/19 at 13:00; Stop 07/01/19 at 12:42; Status DC Rivaroxaban (Xarelto) 20 mg DAILYBFRSUP PO Last administered on 07/01/19at 16:39; Start 07/01/19 at 17:00 Levothyroxine Sodium (Synthroid) 200 mcg DAILY06 PO Last administered on 07/02/19at 04:58; Start 07/02/19 at 06:00 Pantoprazole Sodium (PROTONIX VIAL for IV PUSH) 40 mg DAILYAC IVP Last administered on 07/02/19at 09:13; Start 07/01/19 at 16:30 Calcium Carbonate/ Glycine (Tums) 500 mg PRN AFTMEALHC PRN PO INDIGESTION; Start 07/01/19 at 14:15 Morphine Sulfate (Morphine Sulfate) 2 mg PRN Q2HR PRN IV PAIN Last administered on 07/02/19at 09:14; Start 07/01/19 at 23:30 Info (Anti-Coagulation Monitoring By Pharmacy) 1 each PRN DAILY PRN MC SEE COMMENTS; Start 07/02/19 at 10:15 Active Scripts Active Reported Levothyroxine Sodium 200 Mcg Tablet 200 Mcg PO DAILYAC Xarelto (Rivaroxaban) 10 Mg Tablet 20 Mg PO DAILY Vital Signs Vital Signs Date Time Temp Pulse Resp B/P (MAP) Pulse Ox O2 Delivery O2 Flow Rate FiO2 07/02/19 11:12 98.1 69 16 135/89 (104) 96 Room Air 98.1 Labs Laboratory Tests Test 06/30/19 19:25 07/01/19 04:00 07/02/19 04:48 White Blood Count 8.7 x10^3/uL (4.0-11.0) 11.6 x10^3/uL (4.0-11.0) 8.6 x10^3/uL (4.0-11.0) Red Blood Count 5.40 x10^6/uL (4.30-5.70) 4.89 x10^6/uL (4.30-5.70) 4.43 x10^6/uL (4.30-5.70) Hemoglobin 16.2 g/dL (13.0-17.5) 14.4 g/dL (13.0-17.5) 13.4 g/dL (13.0-17.5) Hematocrit 47.3 % (39.0-53.0) 43.2 % (39.0-53.0) 39.3 % (39.0-53.0) Mean Corpuscular Volume 88 fL (79-100) 88 fL (79-100) 89 fL (79-100) Mean Corpuscular Hemoglobin 30 pg (25-35) 30 pg (25-35) 30 pg (25-35) Mean Corpuscular Hemoglobin Concent 34 g/dL (31-37) 33 g/dL (31-37) 34 g/dL (31-37) Red Cell Distribution Width 16.3 % (11.5-14.5) 16.6 % (11.5-14.5) 16.3 % (11.5-14.5) Platelet Count 308 x10^3/uL (140-400) 307 x10^3/uL (140-400) 241 x10^3/uL (140-400) Neutrophils (%) (Auto) 79 % (31-73) 79 % (31-73) 48 % (31-73) Lymphocytes (%) (Auto) 14 % (24-48) 13 % (24-48) 40 % (24-48) Monocytes (%) (Auto) 7 % (0-9) 8 % (0-9) 10 % (0-9) Eosinophils (%) (Auto) 0 % (0-3) 0 % (0-3) 1 % (0-3) Basophils (%) (Auto) 1 % (0-3) 0 % (0-3) 1 % (0-3) Neutrophils # (Auto) 6.8 x10^3/uL (1.8-7.7) 9.2 x10^3/uL (1.8-7.7) 4.2 x10^3/uL (1.8-7.7) Lymphocytes # (Auto) 1.2 x10^3/uL (1.0-4.8) 1.4 x10^3/uL (1.0-4.8) 3.4 x10^3/uL (1.0-4.8) Monocytes # (Auto) 0.6 x10^3/uL (0.0-1.1) 1.0 x10^3/uL (0.0-1.1) 0.9 x10^3/uL (0.0-1.1) Eosinophils # (Auto) 0.0 x10^3/uL (0.0-0.7) 0.0 x10^3/uL (0.0-0.7) 0.1 x10^3/uL (0.0-0.7) Basophils # (Auto) 0.1 x10^3/uL (0.0-0.2) 0.0 x10^3/uL (0.0-0.2) 0.1 x10^3/uL (0.0-0.2) Urine Collection Type Unknown Urine Color Yellow Urine Clarity Clear Urine pH 6.0 (<5.0-8.0) Urine Specific [place] 1.015 (1.000-1.030) Urine Protein Negative mg/dL (NEG-TRACE) Urine Glucose (UA) Negative mg/dL (NEG) Urine Ketones (Stick) Negative mg/dL (NEG) Urine Blood Negative (NEG) Urine Nitrite Negative (NEG) Urine Bilirubin Negative (NEG) Urine Urobilinogen Dipstick 1.0 mg/dL (0.2 mg/dL) Urine Leukocyte Esterase Negative (NEG) Urine RBC Occ /HPF (0-2) Urine WBC Occ /HPF (0-4) Urine Squamous Epithelial Cells Occ /LPF Urine Bacteria 0 /HPF (0-FEW) Urine Hyaline Casts Occasional /HPF Urine Mucus Marked /LPF Sodium Level 140 mmol/L (136-145) 142 mmol/L (136-145) 144 mmol/L (136-145) Potassium Level 3.9 mmol/L (3.5-5.1) 3.9 mmol/L (3.5-5.1) 3.8 mmol/L (3.5-5.1) Chloride Level 103 mmol/L (98-107) 106 mmol/L (98-107) 108 mmol/L (98-107) Carbon Dioxide Level 19 mmol/L (21-32) 24 mmol/L (21-32) 23 mmol/L (21-32) Anion Gap 18 (6-14) 12 (6-14) 13 (6-14) Blood Urea Nitrogen 9 mg/dL (8-26) 7 mg/dL (8-26) 11 mg/dL (8-26) Creatinine 1.0 mg/dL (0.7-1.3) 0.9 mg/dL (0.7-1.3) 0.9 mg/dL (0.7-1.3) Estimated GFR (Cockcroft-Gault) 77.0 87.0 87.0 BUN/Creatinine Ratio 9 (6-20) 8 (6-20) 12 (6-20) Glucose Level 108 mg/dL (70-99) 132 mg/dL (70-99) 94 mg/dL (70-99) Calcium Level 9.1 mg/dL (8.5-10.1) 8.9 mg/dL (8.5-10.1) 8.2 mg/dL (8.5-10.1) Total Bilirubin 0.4 mg/dL (0.2-1.0) 0.7 mg/dL (0.2-1.0) 0.7 mg/dL (0.2-1.0) Aspartate Amino Transf (AST/SGOT) 22 U/L (15-37) 14 U/L (15-37) 12 U/L (15-37) Alanine Aminotransferase (ALT/SGPT) 19 U/L (16-63) 15 U/L (16-63) 13 U/L (16-63) Alkaline Phosphatase 96 U/L (46-116) 84 U/L (46-116) 74 U/L (46-116) Total Protein 7.3 g/dL (6.4-8.2) 6.4 g/dL (6.4-8.2) 5.4 g/dL (6.4-8.2) Albumin 3.5 g/dL (3.4-5.0) 3.2 g/dL (3.4-5.0) 2.6 g/dL (3.4-5.0) Albumin/Globulin Ratio 0.9 (1.0-1.7) 1.0 (1.0-1.7) 0.9 (1.0-1.7) Lipase 199 U/L (73-393) Laboratory Tests Test 07/02/19 04:48 White Blood Count 8.6 x10^3/uL (4.0-11.0) Red Blood Count 4.43 x10^6/uL (4.30-5.70) Hemoglobin 13.4 g/dL (13.0-17.5) Hematocrit 39.3 % (39.0-53.0) Mean Corpuscular Volume 89 fL (79-100) Mean Corpuscular Hemoglobin 30 pg (25-35) Mean Corpuscular Hemoglobin Concent 34 g/dL (31-37) Red Cell Distribution Width 16.3 % (11.5-14.5) Platelet Count 241 x10^3/uL (140-400) Neutrophils (%) (Auto) 48 % (31-73) Lymphocytes (%) (Auto) 40 % (24-48) Monocytes (%) (Auto) 10 % (0-9) Eosinophils (%) (Auto) 1 % (0-3) Basophils (%) (Auto) 1 % (0-3) Neutrophils # (Auto) 4.2 x10^3/uL (1.8-7.7) Lymphocytes # (Auto) 3.4 x10^3/uL (1.0-4.8) Monocytes # (Auto) 0.9 x10^3/uL (0.0-1.1) Eosinophils # (Auto) 0.1 x10^3/uL (0.0-0.7) Basophils # (Auto) 0.1 x10^3/uL (0.0-0.2) Sodium Level 144 mmol/L (136-145) Potassium Level 3.8 mmol/L (3.5-5.1) Chloride Level 108 mmol/L (98-107) Carbon Dioxide Level 23 mmol/L (21-32) Anion Gap 13 (6-14) Blood Urea Nitrogen 11 mg/dL (8-26) Creatinine 0.9 mg/dL (0.7-1.3) Estimated GFR (Cockcroft-Gault) 87.0 BUN/Creatinine Ratio 12 (6-20) Glucose Level 94 mg/dL (70-99) Calcium Level 8.2 mg/dL (8.5-10.1) Total Bilirubin 0.7 mg/dL (0.2-1.0) Aspartate Amino Transf (AST/SGOT) 12 U/L (15-37) Alanine Aminotransferase (ALT/SGPT) 13 U/L (16-63) Alkaline Phosphatase 74 U/L (46-116) Total Protein 5.4 g/dL (6.4-8.2) Albumin 2.6 g/dL (3.4-5.0) Albumin/Globulin Ratio 0.9 (1.0-1.7) Allergies Allergies Coded Allergies Type Severity Reaction Last Updated Verified No Known Drug Allergies 08/14/16 No Disposition/Orders: D/C to Home Hemodynamically unstable?: No Is patient in severe pain?: No Is NPO status required?: No GONZALES HONG MD Jul 02, 2019 12:25
[2019-07-02] MEDS ORDERED: PANT40TA77 PO (12:26)
[2019-07-02] MEDS ORDERED: ACET325T9 PO (12:26)
--- NOTE | 2019-07-02 12:27 | DISCH ---
DISCHARGE INSTRUCTIONS Condition on Discharge Condition on Discharge: Stable Activity After Discharge Activity Instructions for Disc: No restrictions Lifting Instructions after Dis: No heavy lifting, No pulling or pushing Driving Instructions after Dis: Do not drive today Diet after Discharge Diet after Discharge: Regular Liquid Texture: Thin Liquid Wound Incision Care Wound/Incision Care: Keep wound/cast CDI Checks after Discharge Checks after discharge: Check blood press - daily Contacting the DR. after DC Call your doctor for: If your condition worsens Treatment/Equipment after DC Adaptive Equipment Issued: GONZALES Fonseca MD Jul 02, 2019 12:27
--- NOTE | 2019-07-02 14:44 | NUR ---
Discharge Note: IGNACIO MACIAS [address] Discharge instructions and discharge home medications reviewed with Patient and a copy given. All questions have been answered and understanding verbalized. The following instructions and handouts were given: patient visit report, medication information, education. Discontinued lines and drains: peripheral IV, tip intact. Patient discharged to home with self care via private vehicle. Patient left unit awake, in stable condition, with all personal belongings.
== END 2019-07-02 13:50 | disposition home or self-care (01) | DRG 392 ==
LOC: ER 19:13 → 6 SOUTH 22:30
PROVIDERS: ADMIT Family Medicine; ATTEND Family Medicine
DX: R11.2 Nausea with vomiting, unspecified (principal); K21.9 Gastro-esophageal reflux disease without esophagitis; E66.01 Morbid (severe) obesity due to excess calories; M19.90 Unspecified osteoarthritis, unspecified site; E78.00 Pure hypercholesterolemia, unspecified; I10 Essential (primary) hypertension; E03.9 Hypothyroidism, unspecified; E78.5 Hyperlipidemia, unspecified; M10.9 Gout, unspecified; F32.9 Major depressive disorder, single episode, unspecified; G47.33 Obstructive sleep apnea (adult) (pediatric); Z68.34 Body mass index [BMI] 34.0-34.9, adult; Z86.711 Personal history of pulmonary embolism; Z98.84 Bariatric surgery status; Z90.49 Acquired absence of other specified parts of digestive tract; Z82.49 Family history of ischemic heart disease and other diseases of the circulatory system
CPT/HCPCS: 36415; 74177; 80053; 81001; 83690; 85025; 94640; 96365; 96375; C9113; J1630; J2270; J2405; J3480; J3490; J7030; Q9967; 99285-25; G0378